=== PATIENT | male | born 1965 | race African-American/Black ===

== ENCOUNTER 2018-10-07 09:26 | Inpatient (IN) ==
[2018-10-07] MEDS ORDERED: *HR* FentaNYL (PF) 100 MCG/2 ML VIAL ONE (10:07)
[2018-10-07] MEDS ORDERED: *HR* Midazolam HCl 2 MG/2 ML VIAL ONE (10:07)
[2018-10-07] MEDS ORDERED: 0.9 % Sodium Chloride 1,000 ML ONE (10:07)
[2018-10-07] MEDS ORDERED: *HR* Heparin 10,000 UNIT/10 ML VIAL ONE (10:08)
[2018-10-07] MEDS ORDERED: Heparin 1,000 UNITS/500 mL 500 ML ONE ×2 (10:08→10:25)
[2018-10-07] MEDS ORDERED: Nitroglycerin 1,000 MCG/10 ML VIAL IV ONE (10:08)
[2018-10-07] MEDS ORDERED: Iopamidol 125 ML INFUS..BTL ONE (10:08)
--- NOTE | 2018-10-07 10:45 | Cardiology Consult Note ---
<Dominique Joe Keyla - Last Filed: 10/07/18 13:45> Date of Encounter: 10/07/18 Time of Encounter: 10:30 Assessment and Plan (1) Cardiac arrest Current Visit: Yes Status: Acute Suspected v-fib arrest; s/p mutiple (5+) rounds of CPR. Anterior STEMI on ECG once ROSC achieved. Patient arrived intubated with suspected posturing upon arrival to labeling associate. Heparin and amiodarone gtt infusing. Plan for LH. Admitted to ICU/Pulmonology, will continue to follow closely. ICU monitoring s/p LHC. Recommend obtaining Head CT, thyroid panel. Discussion w patient/family: The assessment and plan as outlined above was discussed with the patient and/or family members who expressed understanding and agreement. All questions were answered. Thank you for involving us in the care of your patient. Please call with any questions. THe patient was discussed and reviewed with Dr. Bellamy and Dr. Man History of Present Illness Consult date: 10/07/18 Requesting physician: Aravind Bro Consult reason: Cardiac arrest Chief complaint: Cardiac arrest History of present illness: Mr. Acevedo is a 53 year old male with PMHx of HTN and recovering drug and alcohol addiction (sobriety 2015) who presented to [place] ED as cardiac arrest. Please note HPI obtained from records, EMS report, and ED notes. Patient presented to the central supply tech office at 08:36 AM clutching his chest describing chest pain. EMS called and as patient was walking to ambulance he reportedly collapsed; initial cardiac rhythm was ventricular fibrillation and underwent reported multiple rounds of CPR (at least 5), x6 defibrillations and multiple doses of epi, amio, and bicarb. ROSC achieved at [facility] and felt to be anterior STEMI, patient was then transferred to [facility]. Upon exam in the labeling associate, he is intubated with suspected posturing. No purposeful movements noted on my exam. HR 120, appears to be atrial flutter. Heparin and amio gtt are infusing. Past Med Surg Social Fam HX - Past Medical History Source: old records reviewed Medical history: arthritis (Rheumatoid arthritis), asthma, glaucoma, hyperlipi demia, hypertension, IV drug use, other (Cervical stenosis) Additional medical history: tendonitis Psychiatric history: anxiety - Past Surgical History Surgical History: orthopedic, other (2 right hand surgeries, cervical fusion) Additional surgical history: anterior cervical decompression/fusion 03/29/15. r hand suman insertion x2 - Social History Smoking Status: Current every day smoker Smokeless Tobacco Status: No Alcohol use: none Drug use: none, other (Old history references recovery from drug and alcohol addiction since August 2014) - Family History Mother Adopted: No Family Member Ethnicity: Non- Living Status: Hx Family Cardiac Disorders: No Hx Family Respiratory Disorders: No Hx Family Cancer: No Hx Family GI Disorders: No Hx Family Endocrine Disorder: No Hx Family Neuromuscular Disorders: No Hx Family Neurologic Disorders: No Hx Family HEENT Disorders: No Hx Family Autoimmune Disorders: No Medications and Allergies No Known Home Drugs 10/07/18 [History] Allergy/AdvReac Type Severity Reaction Status Date / Time No Known Allergies Allergy Verified 12/23/17 08:30 ROS unobtainable: due to endotracheal tube, due to mental status All Systems Review: The remainder of the systems were reviewed and are negative - Cardiovascular Cardiovascular: as per HPI Physical Examination General: Other (intubated; appears critically ill) Cardiac: Other (tachycardiac) Lungs: Other (coarse breath sounds) Neuro: Other (intubated, suspected posturing noted) Extremities: No Edema, Normal Pulses Results 10/07/18 13:28 - EKG Interpretation EKG results cardiology: personally reviewed (with Dr. Man) Consult Discharge Plan - Plan Referrals: NONE,PCP [Primary Care Provider] - <Abraham Man A - Last Filed: 10/07/18 15:28> Date of Encounter: 10/07/18 - Attending Attestation I have personally performed a face to face evaluation on this patient. I have reviewed and agree with the documented findings and care plan as documented by the [facility]. History and Exam by me shows: Pt admitted s/p prolonged cardiac arrest, found to have LAD thrombus s/p PCI. Continue aspirin and Brillinta, and statin via NGT Remains intubated on mechanical ventilation Obtain echo No definite purposeful movt post ROSC; recommend therapeutic hypothermia if no contraindications Thanks for the consult, please call with questions. Abraham Man MD FACC Assessment and Plan Discussion w patient/family: The assessment and plan as outlined above was discussed with the patient and/or family members who expressed understanding and agreement. All questions were answered. Thank you for involving us in the care of your patient. Please call with any questions. History of Present Illness History of present illness: Mr. Acevedo is a 53 year old male All Systems Review: The remainder of the systems were reviewed and are negative Physical Examination Vital Signs, Last 4 Hours Temp Pulse Resp BP Pulse Ox 10/07/18 13:07 98.8 F 132 38 95/80 93 10/07/18 12:53 126 28 118/98 95 10/07/18 12:24 131 28 101/45 89 10/07/18 12:03 98.8 F 139 39 101/45 93 Results 10/07/18 13:28 10/07/18 13:28 Lab Results 10/07/18 10/07/18 13:28 13:28 WBC 16.3 H D Hgb 13.7 Hct 43.7 Plt Count 237 Sodium 139 Potassium 3.7 Chloride 104 Carbon Dioxide 12 L BUN 9 Creatinine 1.27 Glucose 219 H Calcium 8.1 L Total Bilirubin 2.1 H AST 229 H ALT 64 H Alkaline Phosphatase 100
[2018-10-07] MEDS ORDERED: Tirofiban 12.5 MG/250ML 12.5 MG/250 ML BAG IVC SCH (11:30)
--- NOTE | 2018-10-07 12:01 | Invasive Diagnostic Lab Proc ---
Name: Vikas Acevedo Date of Study: 10/07/2018 Date: 1965 Ht: 67.0in Medical Record#: [id number] Age: 53 Wt: 141.00lb Gender: Male BSA: 1.74 Order #: [id number] BMI: 22.08 Physicians Procedure Physician: Pool Bellamy MD Referring MD: Referring MD: Staff Name Position Time In Jose Martin Gregory RN Monitor 10:38 AM Zach Cordova RN Manager Front Office 10:39 AM Grace Vance RT (R) Scrub 10:39 AM Darcy Hlem RN Monitor 10:45 AM Zach Cordova RN Manager Front Office 10:46 AM Grace Vance RT (R) Scrub 10:47 AM Jose Martin Gregory RN Manager Front Office 10:59 AM Indications Indication Resuscitated Cardiac Arrest Procedures Performed Procedure L HRT ARTERY/VENTRICLE ANGIO Pre-Procedure Checklist Informed consent is complete signed and on chart. H&P is on chart. ID band is on and ID verified with patient. Patient NPO for procedure The procedure was described for the patient and questions were answered. Blood Pressure: 123/96 ECG is on chart. Rhythm: Sinus Tachycardia Plan of Care Patient will tolerate the procedure without complications. Adequate level of comfort will be maintained. Hemodynamics will remain stable Patient will recover from procedure without complications. Respiratory function will be maintained. Cardiac rhythm will remain stable. Patient temperature will be maintained. Patient and/or family have verbalized understanding of the procedure. Patient Education Intravenous Access Time IV Size Location DC'd Fluid/Drip Rate Units RN 10:44 AM 20g 1 1/4" Patent On Arrival Rt Antecubital 0.9NaCl 25 ml/hr Zach Cordova RN 10:44 AM 20g 1 1/4" Patent On Arrival Lt Antecubital Amiodarone ml/hr Zach Cordova RN Allergies No Known Allergies Vital Signs Time BP (mmHg) HR (bpm) O2 Sat. RR (bpm) LOC 10:50 AM / % 0 = No reflexes elicited 10:50 AM / % 4 = Oriented but drowsy 10:41 AM 123 / 96 124 98 % 14 10:44 AM 124 / 89 125 96 % 15 10:50 AM 143 / 105 129 100 % 22 10:54 AM 124 / 102 126 100 % 19 10:59 AM 125 / 94 124 100 % 22 11:04 AM 104 / 86 117 99 % 18 11:06 AM / % 0 = No reflexes elicited Procedural Medications Time Medication Dose Units Method Given By 10:43 AM Amiodarone 33.3 ml/hr Intravenous 10:45 AM Oxygen L/min mechanical ventilator PERI Mtz 10:51 AM Lidocaine 2% 9 ml Subcutaneous Pool Bellamy MD 10:58 AM Aggrastat Bolus: 33 ml Intravenous Zach Cordova RN 10:59 AM Aggrastat 12.5mg/250ml 12 ml/hr Intravenous Zach Cordova RN 10:59 AM Heparin 1000 units Intravenous Jose Martin Gregory RN ASA Classification: CLASS IV- Severe systemic that is constant threat to patient's life Emergent Procedure: ASA score is assumed Sherine Score Preprocedure Postprocedure Activity 0- Unable to move extremities or lift head Activity 0- Unable to move extremities or lift head Circulation 2- SBP +/= 20 points of pre-anesthetic level Circulation 2- SBP +/= 20 points of pre-anesthetic level Consciousness 0- Non-responsive Consciousness 0- Non-responsive O2 Saturation 0- O2 saturation 90% even with O2 supplement O2 Saturation 0- O2 saturation 90% even with O2 supplement Respiratory 0- Apneic requires ventilator or assisted respiration Respiratory 0- Apneic requires ventilator or assisted respiration Total Score 2 Total Score 2 Contrast Agent: Isovue Diagnostic Contrast: 102 ml Total Contrast: 102 ml Fluoro Dose: 41 mGy Activated Clotting Time Time Seconds to Clot 11:00 AM 206 Procedure Log Time Note Enter By 10:35 AM Pt arrived to quality assurance/r&d lab technician 2 at 10:35 oparker 10:[address] upon arrival Mechanical ventilator oparker 10:36 AM rts called oparker 10:39 AM Jose Martin Gregory RN Position: Monitor Time in: 10:38 oparker 10:39 AM Zach Cordova RN Position: Manager Front Office Time in: 10:39 oparker 10:39 AM CathStat 10:39 AM Grace Vance RT (R) Position: Scrub Time in: 10:39 oparker 10:39 AM Patient charges- Angio tray pack, Navilyst 3mm J, Pulse Oximetry and ACIST tubing and transducer oparker 10:40 AM NIBP STAT measurement started. 10:40 AM Case Delayed No oparker 10:40 AM Physican notified that patient arrived. 10:40. oparker 10:41 AM rts arrived with vent oparker 10:41 AM pt arrived on hypothermic protocol, icepacks in place oparker 10:41 AM pt is unresponsive, posturing noted oparker 10:41 AM WP=607 bpm, XAXR=418/96 mmhg, SpO2=98.0 %, Resp=14 B/min 10:42 AM pt arrived intubated, frothy sputum noted oparker 10:[address] cooper and stefanie osei at bedside oparker 10:43 AM heparin gtt turned off. oparker 10:43 AM Patient arrived at 10:43 with Amiodarone Intravenous drip @ 33.3 ml/hr oparker 10:44 AM 0.9ns on arrival oparker 10:44 AM HK=709 bpm, CIJI=318/89 mmhg, SpO2=96.0 %, Resp=15 B/min 10:45 AM Darcy Hlem RN Position: Monitor Time in: 10:45 oparker 10:46 AM Time: 10:45 Oxygen on at L/min per mechanical ventilator by PERI Landis scoates 10:46 AM Patient charges- Angio tray pack, Navilyst 3mm J, Pulse Oximetry and ACIST tubing and transducer scoates 10:46 AM Case Delayed no scoates 10:47 AM Zach Cordova RN Position: Manager Front Office Time in: 10:46 scoates 10:47 AM Grace Vance RT (R) Position: Scrub Time in: 10:47 scoates 10:47 AM Hair removed from procedure site in procedure lab using clippers. Right wrist and Right groin prepped with Chloraprep by Zach Cordova RN, then patient was draped. Skin intact. scoates 10:49 AM Physician arrived 10:49 scoates 10:49 AM Meet and greet completed scoates 10:49 AM Sign in performed according to hospital policy. Informed consent was obtained. scoates 10:49 AM Procedure start 10:49 scoates 10:50 AM KT=622 bpm, EKSN=133/105 mmhg, PjN1=569.0 %, Resp=22 B/min 10:50 AM Time: 10:50 Patient comfortable and pain free: No scoates 10:50 AM Time out was performed according to hospital policy. Conscious sedation and anesthesia was achieved (see medication log with in this report above) scoates 10:50 AM Time: 10:50LOC: 0 = No reflexes elicited scoates 10:51 AM Critical cardiac patient with acute IN was brought emergently to the cardiac catheterization laboratory technician for immediate coronary angiography and intervention if clinically indicated. scoates 10:51 AM Clinical Presentation: STEMI or equivalent scoates 10:51 AM Time: 10:51 9 ml Lidocaine 2% to right groin Subcutaneous Given by Pool Bellamy MD scoates 10:52 AM Micro-Introducer Kit utilized for sheath placement scoates 10:52 AM Access obtained by percutaneous puncture. 6Fr 10cm Terumo [place] sheath placed in right Femoral artery. [id number] scoates 10:52 AM 5Fr FR 4 catheter inserted over the wire DNC scoates 10:54 AM AA=743 bpm, AECY=307/102 mmhg, VdE5=841.0 %, Resp=19 B/min 10:54 AM RCA angiography performed in multiple views. scoates 10:54 AM Coronary Dominance: right scoates 10:55 AM Catheter removed scoates 10:55 AM ASA Class CLASS IV- Severe systemic that is constant threat to patient's life scoates 10:57 AM 6Fr XB LAD 3.5 [place] Bright-Tip guide catheter was used to cannulate the PCI vessel successfully. reused? No scoates 10:57 AM LCA angiography performed in multiple views. scoates 10:58 AM Recorded Pressure: Ao, DN=173, Condition=Condition 1 (Aorta) Ao 118/96/107 10:59 AM Time: 10:58 Aggrastat Bolus: 33 ml Intravenous Given by Zach Cordova RN Mccullough pump scoates 10:59 AM UP=966 bpm, YWCI=986/94 mmhg, ZfY6=445.0 %, Resp=22 B/min, Comment=st 10:59 AM Time: 10:59 Aggrastat 12.5mg/250ml 12 ml/hr Intravenous Given by Zach Cordova RN Mccullough pump scoates 10:59 AM Time: 10:59 Heparin 1000 units Intravenous Given by Jose Martin Gregory RN scoates 10:59 AM Jose Martin Gregory RN Position: Manager Front Office Time in: 10:59 scoates 11:00 AM At 11:00 the ACT was 206 seconds. scoates 11:01 AM .014 [employer] [place] 190cm guide wire across target lesion- successful. reused? No scoates 11:04 AM SD=734 bpm, OFCN=618/86 mmhg, SpO2=99.0 %, Resp=18 B/min 11:04 AM 3.5mm x 20mm Cordis EluNIR drug-eluting stent across target lesion- successful Lot #[id number] scoates 11:05 AM Time: 10:50 Patient comfortable and pain free: Yes scoates 11:05 AM Stent deployed @ 9 sneha for 10 seconds scoates 11:06 AM Time: 10:50LOC: 4 = Oriented but drowsy scoates 11:06 AM Stent balloon reinflated @ 16 sneha for 10 seconds scoates 11:06 AM Stent balloon reinflated @ 18 sneha for 8 seconds scoates 11:07 AM Stent delivery system removed intact. scoates 11:08 AM Vitals capture stopped. 11:08 AM Vitals capture started with the following parameters, Patient=Adult, Interval=5 min, Initial Gnmtibgg=782 mmHg, Deflation Rate=3 mmHg, Cuff placed on Right Arm 11:09 AM Lesion found in Mid LAD. Pre Stenosis: 65 Pre MERLYN Flow: 0: No Flow/No perfusion scoates 11:09 AM Guide catheter removed intact. scoates 11:09 AM Guide wire removed intact. scoates 11:10 AM 5Fr Pigtail catheter inserted over the wire [facility] scoates 11:10 AM Catheter crossed the aortic valve and was selectively placed in the left ventricle. Pressures recorded on pullback for left heart catheterization. scoates 11:10 AM Recorded Pressure: LV, MN=904, Condition=Condition 1 (Left Ventricle) LV 108/49/53 11:10 AM Recorded Pressure: LV, Ao, KE=277, Condition=Condition 1 (Left Ventricle) LV 109/43/59, (Aorta) Ao 127/94/112 11:11 AM Vitals capture stopped. 11:12 AM PCI Status Salvage scoates 11:12 AM Procedure completed at 11:12 10/07/2018 scoates 11:13 AM Did you address MERLYN flow and Dominance? YesCoronary Dominance: right scoates 11:15 AM Sign out completed: Radiation Dose 320 mGy, 41 Gy/cm2 Fluoro Time: 6.2 Isovue 370 - 200ml contrast 102 ml given by Pool Bellamy MD. Complications: None. The patient was discharged out of the catheterization laboratory technician in stable condition. Sedation minutes 0. Cardiac Rehab Consult needed: Yes. Confirmed administered medications: Yes scoates 11:16 AM Isovue 370 - 200ml,1 Bottle(s) used. scoates 11:17 AM Arterial sheath pulled, Angio-seal closure device used and was Successful [id number] S/N. scoates 11:19 AM Estimated Blood Loss: less than 20cc scoates 11:20 AM Post ECG Sinus Tachycardia scoates 11:20 AM Post Blood Pressure 104/86 scoates 11:21 AM Time: 11:06LOC: 0 = No reflexes elicited scoates 11:21 AM Time: 11:05 Patient comfortable and pain free: Yes scoates 11:22 AM Information taught Cardiac Cath, PCI, and Angioseal scoates 11:22 AM Learning barriers :Cognitive scoates 11:22 AM Education Methods Verbal scoates 11:22 AM Education evaluation Not ready to learn scoates 11:23 AM manual pressure applied for 10 minutes scoates 11:24 AM Site status No bleeding/ No Hematoma - Rt Groin as reported by Grace Vance RT (R) at 11:24 scoates 11:24 AM Plavix, Effient or Brilinta given given in ER scoates 11:25 AM Family placed in no family present at this time. scoates 11:38 AM Report given to Martha GRANGER Pt taken to ICU Room #3. 11:37 scoates 11:38 AM Patient out of room: 11:38 scoates Complications Complication None Hemodynamics Pressures Site Systolic/A Wave Diastolic/V Wave Mean AO 118 96 107 LV 108 49 53 LV 109 43 59 AO 127 94 112 Post Procedure Information Blood Pressure: 104/86 mmHg Rhythm: Sinus Tachycardia Post procedural instructions were given Closure Device Time Device Success/Fail 10/07/2018 11:20:00 AM Angio-Seal VIP Successful Site Checks Time Location Status Staff Sheath In? Note 11:24 AM Rt Groin No bleeding/ No Hematoma Grace Vance RT (R) Pulses Time Site Pre-Procedure Post-Procedure Note 10/07/2018 11:35:00 AM Bilateral radial 1+ 10/07/2018 11:35:00 AM Bilateral DP & PT 1+ 10/07/2018 10:35:00 AM Bilateral DP & PT 1+ 10/07/2018 10:35:00 AM Bilateral radial 1+ Updated by Jose Martin Gregory RN on 10/07/2018 11:49:51 AM electronically signed on 10/07/2018 11:54:57 AM with status of Final
[2018-10-07] MEDS ORDERED: Perflutren Lipid Microsphere 1.3 ML in 0.9 % Sodium Chloride 8.7 ML IVP ONE ×2 (12:56→15:45)
[2018-10-07] MEDS ORDERED: Artificial Tears SOLN 15 ML BOTTLE BOTH EYES PRN ×2 (13:17→23:01)
[2018-10-07] MEDS ORDERED: Naloxone 0.4 MG/ML INJ IVP PRN (13:24)
[2018-10-07 13:44] LABS: Basophils # 0.1 K/mcL (0.0-0.2); Basophils % 0.3 %; Eosinophils % 0.1 %; Hematocrit 43.7 % (37.5-50.1); Hemoglobin 13.7 g/dL (12.9-16.9); Immature Granulocytes % 0.6 % (0-4); Lymphocytes # 1.2 K/mcL (0.6-4.6); Lymphocytes % 7.3 %; Mean Corpuscular HGB Conc 31.4 g/dL (31.6-35.5); Mean Corpuscular Hemoglobin 30.9 pg (28.0-33.3); Mean Corpuscular Volume 98.4 fL (83.0-100.0); Mean Platelet Volume 10.1 fL (9.4-12.4); Monocytes # 1.3 K/mcL (0.0-1.3); Monocytes % 7.9 %; Neutrophils # 13.7 K/mcL (1.6-8.9); Platelet Count 237 K/mcL (140-400); Red Blood Count 4.44 M/mcL (4.19-5.50); Red Cell Distribution Width 14.7 % (11.5-14.5); Segmented Neutrophils % 83.8 %; White Blood Count 16.3 K/mcL (4.3-11.1)
[2018-10-07 14:15] LABS: Alanine Aminotransferase 64 Units/L (7-52); Albumin 3.5 g/dL (3.5-5.7); Albumin/Globulin Ratio 1.5 (1.1-2.2); Alkaline Phosphatase 100 Units/L (34-104); Aspartate Amino Transferase 229 Units/L (13-39); BUN/Creatinine Ratio 7 (6-26); Bilirubin,Total 2.1 mg/dL (0.3-1.0); Blood Urea Nitrogen 9 mg/dL (6-20); Calcium 8.1 mg/dL (8.6-10.3); Carbon Dioxide 12 mEq/L (23-29); Chloride 104 mEq/L (98-107); Globulin 2.4 g/dL (2.4-3.5); Glucose 219 mg/dL (70-105); Osmolality,Calculated 293 (280-300); Potassium 3.7 mEq/L (3.5-5.1); Sodium 139 mEq/L (136-145); Total Protein 5.9 g/dL (6.4-8.9); eGFR For African Americans > 60 (> 60); eGFR For Non-African Americans 59 (> 60)
[2018-10-07] MEDS ORDERED: Amiodarone Premix 360 MG/200 ML BAG IVC ONE ×2 (14:34→23:23)
[2018-10-07] MEDS: Piperacillin/Tazobactam 3.375 GM in 0.9 % Sodium Chloride Mini Bag 100 ML IVPB SCH ×2 (15:23→21:49)
[2018-10-07] MEDS: Artificial Tears SOLN 15 ML BOTTLE BOTH EYES SCH ×2 (15:23→20:39)
[2018-10-07] MEDS: Pantoprazole 40 MG VIAL IVP SCH (16:10)
[2018-10-07] MEDS: Ipratropium/Albuterol Neb 3 ML IH SCH ×2 (16:27→21:20)
--- NOTE | 2018-10-07 16:49 | Pulmonology History & Physical ---
Date of Encounter: 10/07/18 Time of Encounter: 10:55 Assessment and Plan (1) Cardiac arrest Current visit: Yes Status: Acute Patient is witnessed cardiac arrest and after he returned from cardiac cath stat head CT was done and I have reviewed it with radiologist and no evidence of any bleed. Hypothermia protocol started after checking for any contraindications. Overall prognosis is poor. Patient has no family around and will need social work assistant consult. Might need EEG and neurology consult, all depend after he completed his hypothermia time. I have discussed with pediatric dental hygienist and appreciate his help. Follow up on echo and further work up and management for STEMI management will be deferred to cardiolgist. He has evidence of metabolic acidosis after cardiac arrest and may need bicarb, however that can affect his potassium level and will monitor closely. Poor prognosis . I suspect his lactic acidosis from hypoperfusion rate related concern about neurological outcome for this patient. I spent 65 min of Critical Care time with this patient. It involved decision making of high complexity to assess, manipulate, and support vital organ system failure and/or to prevent further life threatening deterioration of the patient's condition. The time involved in the performance of separately reportable procedures was not counted toward critical care time. (2) Acute respiratory failure with hypoxia Current visit: Yes Status: Acute Reviewed his vent setting and his ABG, which is acceptable and after sedation, may need to change some vent setting. Patient has tachypnea mainly from his underlying metabolic acidosis and once he is sedated and then follow-up ABG to make sure he is not deteriorating. History of Present Illness Chief complaint: Cardiac arrest HPI: Mr. Acevedo is a 53 year old male with multiple medical problems and this history is taken from the chart and physician from [place] ED. Patient is not able to give history after cardiac arrest and family is not available and not able to reach anyone. Patient present to [facility] ED as cardiac arrest. Patient first presented to the Psychiatric office with chest pain and EMS called and he collapsed after that and was found to be in Ventricular fibrillation and he underwent multiple rounds of CPR for multiple defibrillation and Magnesium, Amiodarone and finally he had ROSC at [place] and he was transferred to dairy lab technician and then to ICU. CT head was done and then started hypothermia protocol. Past Med Surg Social Fam HX - Past Medical History Medical history: arthritis (Rheumatoid arthritis), asthma, glaucoma, hyperlipidemia, hypertension, IV drug use, other (Cervical stenosis) Additional medical history: tendonitis Psychiatric history: anxiety - Past Surgical History Surgical History: orthopedic, other (2 right hand surgeries, cervical fusion) Additional surgical history: anterior cervical decompression/fusion 03/29/15. r hand suman insertion x2 - Social History Smoking Status: Current every day smoker Smokeless Tobacco Status: No Alcohol use: none Drug use: none, other (Old history references recovery from drug and alcohol addiction since August 2014) - Family History Mother Adopted: No Family Member Ethnicity: Non- Living Status: Hx Family Cardiac Disorders: No Hx Family Respiratory Disorders: No Hx Family Cancer: No Hx Family GI Disorders: No Hx Family Endocrine Disorder: No Hx Family Neuromuscular Disorders: No Hx Family Neurologic Disorders: No Hx Family HEENT Disorders: No Hx Family Autoimmune Disorders: No Medications and Allergies No Known Home Drugs 10/07/18 [History] Allergy/AdvReac Type Severity Reaction Status Date / Time No Known Allergies Allergy Verified 12/23/17 08:30 ROS unobtainable: due to mental status All Systems: The remainder of the systems were reviewed and are negative Physical Examination Vital Signs: Vital Signs, Last 4 Hours Temp Pulse Resp BP Pulse Ox 10/07/18 13:07 98.8 F 132 38 95/80 93 10/07/18 12:53 126 28 118/98 95 General appearance: agitated Eyes: nonicteric ENT: oropharynx dry Neck: supple, no lymphadenopathy Effort: mildly labored Inspection: hyperextended Auscultation: bilateral: diminished breath sounds, rales Percussion: bilateral: not dull Cardiovascular: regular rate and rhythm Gastrointestinal: normoactive bowel sounds, hypoactive bowel sounds Integumentary: other (Dry and poor hygiene) Extremities: no cyanosis, no edema, no clubbing unable to assess due to mental status, other (Patient has some posturing and not following any commands) Results - Laboratory Findings CBC and BMP: 10/08/18 07:02 10/08/18 07:02 Abnormal lab findings: Abnormal lab results WBC 16.3 K/mcL (4.3-11.1) H D 10/07/18 13:28 MCHC 31.4 g/dL (31.6-35.5) L 10/07/18 13:28 RDW 14.7 % (11.5-14.5) H 10/07/18 13:28 Neutrophils # 13.7 K/mcL (1.6-8.9) H 10/07/18 13:28 Carbon Dioxide 12 mEq/L (23-29) L 10/07/18 13:28 Est GFR (Non-Af Amer) 59 (> 60) L 10/07/18 13:28 Glucose 219 mg/dL (70-105) H 10/07/18 13:28 Calcium 8.1 mg/dL (8.6-10.3) L 10/07/18 13:28 Total Bilirubin 2.1 mg/dL (0.3-1.0) H 10/07/18 13:28 AST 229 Units/L (13-39) H 10/07/18 13:28 ALT 64 Units/L (7-52) H 10/07/18 13:28 Serum Total Protein 5.9 g/dL (6.4-8.9) L 10/07/18 13:28 - Diagnostic Findings Chest x-ray: report reviewed, image reviewed
[2018-10-07 17:15] LABS: Amphetamine Screen,Urine Negative ng/mL (Cutoff=1000); Barbiturate Screen,Urine Negative ng/mL (Cutoff=200); Benzodiazepines Screen,Urine Negative ng/mL (Cutoff=200); Cannabinoid Screen,Urine Negative ng/mL (Cutoff = 50); Cocaine Screen,Urine Negative ng/mL (Cutoff= 300); Opiate Screen,Urine Negative ng/mL (Cutoff=300); Phencyclidine Screen,Urine Negative ng/mL (Cutoff=25)
--- NOTE | 2018-10-07 17:51 | Electrocardiograph Report ---
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
[2018-10-07 19:02] LABS: Basophils % 0.2 %; Hematocrit 43.7 % (37.5-50.1); Hemoglobin 14.3 g/dL (12.9-16.9); Immature Granulocytes % 0.7 % (0-4); Lymphocytes # 0.7 K/mcL (0.6-4.6); Lymphocytes % 3.9 %; Mean Corpuscular HGB Conc 32.7 g/dL (31.6-35.5); Mean Corpuscular Hemoglobin 31.4 pg (28.0-33.3); Mean Corpuscular Volume 95.8 fL (83.0-100.0); Mean Platelet Volume 10.2 fL (9.4-12.4); Monocytes # 1.4 K/mcL (0.0-1.3); Monocytes % 7.9 %; Neutrophils # 15.2 K/mcL (1.6-8.9); Platelet Count 215 K/mcL (140-400); Red Blood Count 4.56 M/mcL (4.19-5.50); Red Cell Distribution Width 14.6 % (11.5-14.5); Segmented Neutrophils % 87.3 %; White Blood Count 17.4 K/mcL (4.3-11.1)
[2018-10-07 19:13] LABS: INR 1.2; Prothrombin Time 13.4 Seconds (9.4-12.1)
[2018-10-07 19:15] LABS: Activated Partial Thrombo Time 30.4 Seconds (26.0-36.0); BUN/Creatinine Ratio 9 (6-26); Blood Urea Nitrogen 10 mg/dL (6-20); Calcium 8.4 mg/dL (8.6-10.3); Carbon Dioxide 17 mEq/L (23-29); Chloride 106 mEq/L (98-107); Glucose 176 mg/dL (70-105); Magnesium 2.4 mg/dL (1.6-2.6); Osmolality,Calculated 295 (280-300); Phosphorous 4.1 mg/dL (2.7-4.5); Potassium 3.7 mEq/L (3.5-5.1); Sodium 141 mEq/L (136-145); eGFR For African Americans > 60 (> 60); eGFR For Non-African Americans > 60 (> 60)
[2018-10-07] MEDS: Dexmedetomidine HCl 400 MCG/100 ML MLS IVC SCH (20:04)
[2018-10-07 20:12] LABS: ABG Base Excess -10 mEq/L (-2 to 3); ABG HCO3 16 mEq/L (21-27); ABG Oxygen Saturation 100 % (95-98); ABG PCO2 34 mmHg (35-45); ABG PH 7.28 pH Units (7.32-7.45); ABG PO2 192 mmHg (85-104); ABG TCO2 17 mEq/L (20-26); Blood Gas Modality ASSIST CONTROL
[2018-10-07] MEDS: Cisatracurium 200 MG in 0.9 % Sodium Chloride 180 ML IVC SCH (20:33)
[2018-10-07] MEDS: *HR* Ticagrelor 90 MG TABLET PO SCH (20:45)
[2018-10-07] MEDS ORDERED: Chlorhexidine Rinse 15 ML MOUTHWASH MM SCH (21:00)
[2018-10-07] MEDS: Budesonide/Formoterol 160/4.5 1 PUFF INH IH SCH (21:20)
[2018-10-07 22:26] LABS: Basophils % 0.1 %; Hematocrit 41.1 % (37.5-50.1); Hemoglobin 13.7 g/dL (12.9-16.9); Immature Granulocytes % 0.6 % (0-4); Lymphocytes # 0.6 K/mcL (0.6-4.6); Lymphocytes % 3.7 %; Mean Corpuscular HGB Conc 33.3 g/dL (31.6-35.5); Mean Corpuscular Hemoglobin 31.1 pg (28.0-33.3); Mean Corpuscular Volume 93.2 fL (83.0-100.0); Mean Platelet Volume 10.3 fL (9.4-12.4); Monocytes # 1.1 K/mcL (0.0-1.3); Neutrophils # 13.3 K/mcL (1.6-8.9); Platelet Count 203 K/mcL (140-400); Red Blood Count 4.41 M/mcL (4.19-5.50); Red Cell Distribution Width 14.4 % (11.5-14.5); Segmented Neutrophils % 88.6 %
[2018-10-07 22:34] LABS: INR 1.2; Prothrombin Time 13.9 Seconds (9.4-12.1)
[2018-10-07 22:36] LABS: Activated Partial Thrombo Time 32.1 Seconds (26.0-36.0)
[2018-10-07 22:43] LABS: BUN/Creatinine Ratio 11 (6-26); Blood Urea Nitrogen 12 mg/dL (6-20); Carbon Dioxide 15 mEq/L (23-29); Chloride 106 mEq/L (98-107); Glucose 246 mg/dL (70-105); Potassium 3.4 mEq/L (3.5-5.1); Sodium 138 mEq/L (136-145); eGFR For African Americans > 60 (> 60); eGFR For Non-African Americans > 60 (> 60)
[2018-10-07 22:44] LABS: Calcium 8.2 mg/dL (8.6-10.3); Magnesium 2.3 mg/dL (1.6-2.6); Osmolality,Calculated 294 (280-300); Phosphorous 4.9 mg/dL (2.7-4.5)
[2018-10-07] MEDS ORDERED: Potassium Chloride Elixir 20 MEQ/15 ML UDC PO ONE (23:44)
[2018-10-08] MEDS: Artificial Tears SOLN 15 ML BOTTLE BOTH EYES SCH ×8 (00:14→23:00)
[2018-10-08 00:38] LABS: Thyroid Stimulating Hormone 1.881 mcIU/mL (0.340-5.600)
[2018-10-08] MEDS: Ipratropium/Albuterol Neb 3 ML IH SCH ×4 (03:26→21:47)
--- NOTE | 2018-10-08 05:12 | Event Note ---
Date of Encounter: 10/08/18 Time of Encounter: 05:08 Called by RN and resident to place CVC for hypotension and possible need for pressors. Dr. Norris attempted to place left femoral CVC using ultrasound guidance, but she failed to aspirate the femoral vein. I then attempted and successfully aspirated and cannulated the left femoral vein twice, but I was unable to advance the guidewire on the first attempt and then unable to advance the CVC over the guidewire on the second attempt. I therefore aborted the procedure. MAP is currently in the 80-90's. We will continue to monitor and ask PICC team or primary team to provide better IV/central venous access this morning. Patient tolerated CVC attempt with no immediate complication and less than 10 ml blood loss.
[2018-10-08] MEDS: Piperacillin/Tazobactam 3.375 GM in 0.9 % Sodium Chloride Mini Bag 100 ML IVPB SCH ×3 (05:23→21:14)
[2018-10-08 05:30] LABS: ABG Base Excess -8 mEq/L (-2 to 3); ABG HCO3 17 mEq/L (21-27); ABG Oxygen Saturation 99 % (95-98); ABG PCO2 31 mmHg (35-45); ABG PH 7.34 pH Units (7.32-7.45); ABG PO2 157 mmHg (85-104); ABG TCO2 18 mEq/L (20-26); Blood Gas Modality ASSIST CONTROL; Blood Gas PEEP 5 cm H2O; Blood Gas VT 550 cc
[2018-10-08 07:21] LABS: Basophils % 0.1 %; Hematocrit 40.6 % (37.5-50.1); Hemoglobin 13.1 g/dL (12.9-16.9); Immature Granulocytes % 0.4 % (0-4); Lymphocytes # 0.6 K/mcL (0.6-4.6); Mean Corpuscular HGB Conc 32.3 g/dL (31.6-35.5); Monocytes # 1.3 K/mcL (0.0-1.3); Monocytes % 8.8 %; Neutrophils # 12.6 K/mcL (1.6-8.9); Nucleated Red Blood Cells 0.1 /100 WBC (0); Platelet Count 178 K/mcL (140-400); Red Blood Count 4.23 M/mcL (4.19-5.50); Red Cell Distribution Width 14.7 % (11.5-14.5); Segmented Neutrophils % 86.7 %; White Blood Count 14.6 K/mcL (4.3-11.1)
[2018-10-08 07:28] LABS: INR 1.2; Prothrombin Time 13.7 Seconds (9.4-12.1)
[2018-10-08 07:31] LABS: Activated Partial Thrombo Time 31.4 Seconds (26.0-36.0)
[2018-10-08 07:40] LABS: BUN/Creatinine Ratio 11 (6-26); Blood Urea Nitrogen 14 mg/dL (6-20); Calcium 8.4 mg/dL (8.6-10.3); Carbon Dioxide 19 mEq/L (23-29); Chloride 104 mEq/L (98-107); Glucose 224 mg/dL (70-105); Magnesium 2.5 mg/dL (1.6-2.6); Osmolality,Calculated 301 (280-300); Phosphorous 4.6 mg/dL (2.7-4.5); Potassium 3.6 mEq/L (3.5-5.1); Sodium 142 mEq/L (136-145); eGFR For African Americans > 60 (> 60); eGFR For Non-African Americans 56 (> 60)
--- NOTE | 2018-10-08 08:01 | Pulmonology Progress Note ---
<Rian Johnston L - Last Filed: 10/08/18 11:44> Date of Encounter: 10/08/18 Time of Encounter: 08:01 Assessment and Plan (1) Cardiopulmonary arrest Current Visit: No Status: Acute Cardiopulmonary arrest after returning from [employer] cutting [employer] yesterday - Hypothermia protocol in progress - Poor prognosis - Cardiology following - Cisatracurium for shivering - Episodes of non-sustained VT, beginning around 9am Plan: - Keep under 34 degrees C until 7 pm - Coreg BID - Amiodarone drip - ASA and Brilinta - Continuous monitoring - Full vent support (2) Hypotension Current Visit: Yes Status: Acute Hypotension - Secondary to cardiac arrest - MAP ~60 - L fem triple lumen central line placed Plan: - Levophed started - Titrate to map > 65 or systolic >90 - Continue to monitor - Family discussion on goals of care later today Qualifiers: Hypotension type: other hypotension type Qualified Code(s): I95.89 - Other hypotension (3) STEMI (ST elevation myocardial infarction) Current Visit: Yes Status: Acute STEMI - PCI 10/07/18 following arrest - Care as above Qualifiers: Involved coronary artery: LAD coronary artery Qualified Code(s): I21.02 - ST elevation (STEMI) myocardial infarction involving left anterior descending coronary artery (4) Acute respiratory failure with hypoxia Current Visit: Yes Status: Acute Acute resp failure - Secondary to cardiopulmonry arrest - Cont full vent support Subjective Interval history: Pt seen and examined. Sedated and paralyzed. On hypothermia protocol, rewarming in progress. Paralytic will be turned off this am. Overnight a central line coul d not be placed. BP has been low, difficult to obtain consistent reading. Plan for central line and pressers as needed. Objective PUL Vital signs: Last Vital Signs Temp 92.1 F L 10/08/18 07:00 Pulse 79 10/08/18 07:00 Resp 16 10/08/18 07:52 BP 112/98 10/08/18 07:52 Pulse Ox 99 10/08/18 07:52 Gen.: Elderly male. Intubated and sedated Skin: Cold, Good turgor. Eyes: Pupils 2-3 mm, sluggish reaction to light Neck: No obvious JVD Cardiac: RRR, s1s2 Respiratory: Mechanical BS BL Abdominal: soft, non-distended. No rigidity Extremities: Capillary refill less than 2 seconds upper extremities bilaterally. No bilateral lower extremity edema. Difficult to palpate peripheral pulses. Pulses identified with Doppler. Neuro: Amelia 6. Unresponsive. Gag reflex, corneal reflex intact Ventilator Settings Ventilator Settings: Ventilator Settings, Last 8 Hours Ventilator Tidal Volume 550 Setting Ventilator Tidal Volume 550 Setting Ventilator Tidal Volume 550 Setting Ventilator Tidal Volume 550 Setting Ventilator Tidal Volume 550 Setting Ventilator Tidal Volume 550 Setting Ventilator Tidal Volume 550 Setting Ventilator Tidal Volume 550 Setting Ventilator Tidal Volume 550 Setting Ventilator Tidal Volume 550 Setting Ventilator Tidal Volume 550 Setting Ventilator Tidal Volume 550 Setting Ventilator Tidal Volume 550 Setting Ventilator Tidal Volume 550 Setting Ventilator Tidal Volume 550 Setting Ventilator Tidal Volume 550 Setting Ventilator Tidal Volume 550 Setting Ventilator Tidal Volume 550 Setting Ventilator Tidal Volume 550 Setting Ventilator Tidal Volume 550 Setting Ventilator Tidal Volume 550 Setting Ventilator Tidal Volume 550 Setting Ventilator Tidal Volume 550 Setting Ventilator Tidal Volume 550 Setting Ventilator Tidal Volume 550 Setting Ventilator Respiratory Rate 16 Setting Ventilator Respiratory Rate 16 Setting Ventilator Respiratory Rate 16 Setting Ventilator Respiratory Rate 16 Setting Ventilator Respiratory Rate 16 Setting Ventilator Respiratory Rate 16 Setting Ventilator Respiratory Rate 16 Setting Ventilator Respiratory Rate 16 Setting Ventilator Respiratory Rate 16 Setting Ventilator Respiratory Rate 16 Setting Ventilator Respiratory Rate 16 Setting Ventilator Respiratory Rate 16 Setting Ventilator Respiratory Rate 16 Setting Ventilator Respiratory Rate 16 Setting Ventilator Respiratory Rate 16 Setting Ventilator Respiratory Rate 16 Setting Ventilator Respiratory Rate 16 Setting Ventilator Respiratory Rate 16 Setting Ventilator Respiratory Rate 16 Setting Ventilator Respiratory Rate 16 Setting Ventilator Respiratory Rate 16 Setting Ventilator Respiratory Rate 16 Setting Ventilator Respiratory Rate 16 Setting Ventilator Respiratory Rate 16 Setting Ventilator Respiratory Rate 16 Setting Actual Respiratory Rate 16 Actual Respiratory Rate 16 Actual Respiratory Rate 16 Actual Respiratory Rate 16 Actual Respiratory Rate 16 Actual Respiratory Rate 16 Actual Respiratory Rate 17 Actual Respiratory Rate 16 Actual Respiratory Rate 16 Actual Respiratory Rate 16 Actual Respiratory Rate 16 Actual Respiratory Rate 16 Actual Respiratory Rate 17 Actual Respiratory Rate 16 Actual Respiratory Rate 16 Actual Respiratory Rate 16 Actual Respiratory Rate 16 Actual Respiratory Rate 16 Actual Respiratory Rate 16 Actual Respiratory Rate 16 Actual Respiratory Rate 16 Actual Respiratory Rate 16 Actual Respiratory Rate 16 Actual Respiratory Rate 16 Positive End Expiratory 5 Pressure Positive End Expiratory 5 Pressure Positive End Expiratory 5 Pressure Positive End Expiratory 5 Pressure Positive End Expiratory 5 Pressure Positive End Expiratory 5 Pressure Positive End Expiratory 5 Pressure Positive End Expiratory 5 Pressure Positive End Expiratory 5 Pressure Positive End Expiratory 5 Pressure Positive End Expiratory 5 Pressure Positive End Expiratory 5 Pressure Positive End Expiratory 5 Pressure Positive End Expiratory 5 Pressure Positive End Expiratory 5 Pressure Positive End Expiratory 5 Pressure Positive End Expiratory 5 Pressure Positive End Expiratory 5 Pressure Positive End Expiratory 5 Pressure Positive End Expiratory 5 Pressure Positive End Expiratory 5 Pressure Positive End Expiratory 5 Pressure Positive End Expiratory 5 Pressure Positive End Expiratory 5 Pressure Positive End Expiratory 5 Pressure Peak Inspiratory Airway 21 Pressure Peak Inspiratory Airway 21 Pressure Peak Inspiratory Airway 20 Pressure Peak Inspiratory Airway 20 Pressure Peak Inspiratory Airway 22 Pressure Peak Inspiratory Airway 21 Pressure Peak Inspiratory Airway 21 Pressure Peak Inspiratory Airway 21 Pressure Peak Inspiratory Airway 21 Pressure Peak Inspiratory Airway 21 Pressure Peak Inspiratory Airway 21 Pressure Peak Inspiratory Airway 20 Pressure Peak Inspiratory Airway 22 Pressure Peak Inspiratory Airway 21 Pressure Peak Inspiratory Airway 21 Pressure Peak Inspiratory Airway 21 Pressure Peak Inspiratory Airway 21 Pressure Peak Inspiratory Airway 21 Pressure Peak Inspiratory Airway 21 Pressure Peak Inspiratory Airway 21 Pressure Peak Inspiratory Airway 21 Pressure Peak Inspiratory Airway 21 Pressure Peak Inspiratory Airway 20 Pressure Peak Inspiratory Airway 20 Pressure Results - Laboratory Findings CBC and BMP: 10/08/18 07:02 10/08/18 07:02 ABG ABG pH 7.34 pH Units (7.32-7.45) 10/08/18 05:25 ABG pCO2 31 mmHg (35-45) L 10/08/18 05:25 ABG pO2 157 mmHg (85-104) H 10/08/18 05:25 ABG O2 Saturation 99 % (95-98) H 10/08/18 05:25 PT/INR, D-dimer PT 13.7 Seconds (9.4-12.1) H 10/08/18 07:02 Abnormal lab findings: Abnormal lab results WBC 14.6 K/mcL (4.3-11.1) H 10/08/18 07:02 MCHC 31.4 g/dL (31.6-35.5) L 10/07/18 13:28 RDW 14.7 % (11.5-14.5) H 10/08/18 07:02 Neutrophils # 12.6 K/mcL (1.6-8.9) H 10/08/18 07:02 Monocytes # 1.4 K/mcL (0.0-1.3) H 10/07/18 18:41 Nucleated RBCs/100 WBC 0.1 /100 WBC (0) H 10/08/18 07:02 PT 13.7 Seconds (9.4-12.1) H 10/08/18 07:02 ABG pH 7.28 pH Units (7.32-7.45) L 10/07/18 20:00 ABG pCO2 31 mmHg (35-45) L 10/08/18 05:25 ABG pO2 157 mmHg (85-104) H 10/08/18 05:25 ABG HCO3 17 mEq/L (21-27) L 10/08/18 05:25 ABG Total CO2 18 mEq/L (20-26) L 10/08/18 05:25 ABG O2 Saturation 99 % (95-98) H 10/08/18 05:25 ABG Base Excess -8 mEq/L (-2 to 3) L 10/08/18 05:25 Potassium 3.4 mEq/L (3.5-5.1) L 10/07/18 22:07 Carbon Dioxide 19 mEq/L (23-29) L 10/08/18 07:02 Creatinine 1.33 mg/dL (0.70-1.30) H 10/08/18 07:02 Est GFR (Non-Af Amer) 56 (> 60) L 10/08/18 07:02 Glucose 224 mg/dL (70-105) H 10/08/18 07:02 POC Glucose 269 mg/dL (70-99) H 10/07/18 23:36 Calculated Osmolality 301 (280-300) H 10/08/18 07:02 Lactic Acid 6.4 mmol/L (0.5-2.2) H* 10/08/18 07:02 Calcium 8.4 mg/dL (8.6-10.3) L 10/08/18 07:02 Phosphorus 4.6 mg/dL (2.7-4.5) H 10/08/18 07:02 Total Bilirubin 2.1 mg/dL (0.3-1.0) H 10/07/18 13:28 AST 229 Units/L (13-39) H 10/07/18 13:28 ALT 64 Units/L (7-52) H 10/07/18 13:28 Serum Total Protein 5.9 g/dL (6.4-8.9) L 10/07/18 13:28 - Microbiology Findings Microbiology Findings: Microbiology, Last 48 Hours 10/07/18 13:28 Blood Culture - Preliminary Peripheral Venipuncture Culture is incubating and being continuously monitored for growth. Final report to follow. 10/07/18 13:28 Blood Culture - Preliminary Peripheral Venipuncture Culture is incubating and being continuously monitored for growth. Final report to follow. - Clinical Findings Intake & Output: Intake & Output 10/07/18 10/08/18 10/08/18 23:59 07:59 15:59 Intake Total 150 / 432 907 / 907 Output Total 1600 / 1800 325 / 325 Balance -1450 / -1368 582 / 582 Consult Discharge Plan - Plan Referrals: Bailee Mccain, MARLYN [Advanced Practice Nurse] - 10/22/18 12:45 pm Luis Alberto Lucero CNP [Advanced Practice Nurse] - (Per the Office they will call the patient at home with a follow up appointment) Prescriptions: Rivaroxaban [Xarelto] 20 mg PO DAILY #30 tablet <Scott Bonilla M - Last Filed: 10/11/18 15:46> Date of Encounter: 10/08/18 Assessment and Plan (1) Cardiac arrest Current Visit: Yes Status: Acute (2) Acute respiratory failure with hypoxia Current Visit: Yes Status: Acute Objective PUL Vital signs: Last Vital Signs Temp 92.6 F L 10/08/18 16:00 Pulse 82 10/08/18 16:00 Resp 16 10/08/18 16:00 BP 94/83 10/08/18 16:00 Pulse Ox 99 10/08/18 16:00 Ventilator Settings Ventilator Settings: Ventilator Settings, Last 8 Hours Ventilator Tidal Volume 550 Setting Ventilator Tidal Volume 550 Setting Ventilator Tidal Volume 550 Setting Ventilator Tidal Volume 550 Setting Ventilator Tidal Volume 550 Setting Ventilator Tidal Volume 550 Setting Ventilator Tidal Volume 550 Setting Ventilator Tidal Volume 550 Setting Ventilator Tidal Volume 550 Setting Ventilator Tidal Volume 550 Setting Ventilator Tidal Volume 550 Setting Ventilator Respiratory Rate 16 Setting Ventilator Respiratory Rate 16 Setting Ventilator Respiratory Rate 16 Setting Ventilator Respiratory Rate 16 Setting Ventilator Respiratory Rate 16 Setting Ventilator Respiratory Rate 16 Setting Ventilator Respiratory Rate 16 Setting Ventilator Respiratory Rate 16 Setting Ventilator Respiratory Rate 16 Setting Ventilator Respiratory Rate 16 Setting Ventilator Respiratory Rate 16 Setting Actual Respiratory Rate 16 Actual Respiratory Rate 16 Actual Respiratory Rate 16 Actual Respiratory Rate 16 Actual Respiratory Rate 16 Actual Respiratory Rate 16 Actual Respiratory Rate 16 Actual Respiratory Rate 16 Actual Respiratory Rate 16 Actual Respiratory Rate 19 Actual Respiratory Rate 16 Positive End Expiratory 5 Pressure Positive End Expiratory 5 Pressure Positive End Expiratory 5 Pressure Positive End Expiratory 5 Pressure Positive End Expiratory 5 Pressure Positive End Expiratory 5 Pressure Positive End Expiratory 5 Pressure Positive End Expiratory 5 Pressure Positive End Expiratory 5 Pressure Positive End Expiratory 5 Pressure Positive End Expiratory 5 Pressure Peak Inspiratory Airway 23 Pressure Peak Inspiratory Airway 22 Pressure Peak Inspiratory Airway 21 Pressure Peak Inspiratory Airway 22 Pressure Peak Inspiratory Airway 22 Pressure Peak Inspiratory Airway 22 Pressure Peak Inspiratory Airway 23 Pressure Peak Inspiratory Airway 23 Pressure Peak Inspiratory Airway 20 Pressure Peak Inspiratory Airway 18 Pressure Peak Inspiratory Airway 20 Pressure Results - Laboratory Findings CBC and BMP: 10/11/18 04:40 10/11/18 04:40 ABG ABG pH 7.34 pH Units (7.32-7.45) 10/08/18 05:25 ABG pCO2 31 mmHg (35-45) L 10/08/18 05:25 ABG pO2 157 mmHg (85-104) H 10/08/18 05:25 ABG O2 Saturation 99 % (95-98) H 10/08/18 05:25 PT/INR, D-dimer PT 13.8 Seconds (9.4-12.1) H 10/08/18 12:30 Abnormal lab findings: Abnormal lab results WBC 16.0 K/mcL (4.3-11.1) H 10/08/18 12:30 RBC 4.03 M/mcL (4.19-5.50) L 10/08/18 12:30 Hgb 12.5 g/dL (12.9-16.9) L 10/08/18 12:30 MCHC 31.4 g/dL (31.6-35.5) L 10/07/18 13:28 RDW 14.7 % (11.5-14.5) H 10/08/18 07:02 Neutrophils # 14.0 K/mcL (1.6-8.9) H 10/08/18 12:30 Monocytes # 1.4 K/mcL (0.0-1.3) H 10/07/18 18:41 Nucleated RBCs/100 WBC 0.1 /100 WBC (0) H 10/08/18 12:30 PT 13.8 Seconds (9.4-12.1) H 10/08/18 12:30 ABG pH 7.28 pH Units (7.32-7.45) L 10/07/18 20:00 ABG pCO2 31 mmHg (35-45) L 10/08/18 05:25 ABG pO2 157 mmHg (85-104) H 10/08/18 05:25 ABG HCO3 17 mEq/L (21-27) L 10/08/18 05:25 ABG Total CO2 18 mEq/L (20-26) L 10/08/18 05:25 ABG O2 Saturation 99 % (95-98) H 10/08/18 05:25 ABG Base Excess -8 mEq/L (-2 to 3) L 10/08/18 05:25 Potassium 3.4 mEq/L (3.5-5.1) L 10/07/18 22:07 Carbon Dioxide 22 mEq/L (23-29) L 10/08/18 12:30 Creatinine 1.47 mg/dL (0.70-1.30) H 10/08/18 12:30 Est GFR (Non-Af Amer) 50 (> 60) L 10/08/18 12:30 Glucose 161 mg/dL (70-105) H 10/08/18 12:30 POC Glucose 269 mg/dL (70-99) H 10/07/18 23:36 Calculated Osmolality 301 (280-300) H 10/08/18 07:02 Lactic Acid 4.3 mmol/L (0.5-2.2) H* 10/08/18 12:30 Calcium 8.3 mg/dL (8.6-10.3) L 10/08/18 12:30 Phosphorus 4.6 mg/dL (2.7-4.5) H 10/08/18 07:02 Total Bilirubin 2.1 mg/dL (0.3-1.0) H 10/07/18 13:28 AST 229 Units/L (13-39) H 10/07/18 13:28 ALT 64 Units/L (7-52) H 10/07/18 13:28 Serum Total Protein 5.9 g/dL (6.4-8.9) L 10/07/18 13:28 Urine Color Red (Yellow) A 10/08/18 14:26 Urine Clarity Turbid (Clear) A 10/08/18 14:26 Ur Specific [place] > 1.030 (1.010-1.025) H 10/08/18 14:26 Urine Protein 100 mg/dL (Neg-Trace) H 10/08/18 14:26 Urine Ketones 15 mg/dL (Negative) H 10/08/18 14:26 Urine Blood Large (Negative) H 10/08/18 14:26 Urine Nitrite Positive (Negative) A 10/08/18 14:26 Urine Bilirubin Moderate (Negative) H 10/08/18 14:26 Ur Leukocyte Esterase Moderate (Negative) H 10/08/18 14:26 Urine Microscopic RBC TNTC per hpf (0-3) H 10/08/18 14:26 Urine Microscopic WBC 50-100 per hpf (0-3) H 10/08/18 14:26 Ur Squamous Epith Cells Many per lpf (None-Few) H 10/08/18 14:26 Granular Casts Few per lpf (None Seen) H 10/08/18 14:26 Ur Culture Indicated? YES (NO) A 10/08/18 14:26 - Microbiology Findings Microbiology Findings: Microbiology, Last 48 Hours 10/08/18 13:41 Sputum Culture - Preliminary Sputum 10/07/18 13:28 Blood Culture - Preliminary Peripheral Venipuncture Culture is incubating and being continuously monitored for growth. Final report to follow. 10/07/18 13:28 Blood Culture - Preliminary Peripheral Venipuncture Culture is incubating and being continuously monitored for growth. Final report to follow. - Clinical Findings Intake & Output: Intake & Output 10/08/18 10/08/18 10/08/18 07:59 15:59 23:59 Intake Total 907 / 1315 408 / 1315 Output Total 325 / 420 95 / 420 Balance 582 / 895 313 / 895 - Attending Attestation I examined this patient and my medical decision-making was reviewed with the Resident Physician. I agree with the documented findings, disposition and treatment plan as described except to the extent set forth below. Patient seen and examined. Labs, radiology, chart personally reviewed. Agree with resident's history and physical, assessment, plan with following comments: DRY KILN BURNER: Patient does not follows commands, patient is still requiring sedation and this is mainly for the vent synchrony and also until he completes his hypothermia treatment. We will start rewarming once he has at least 18 hours from the time I have decreased his temperature old. Patient is requiring paralytic mainly for the shivering. Pulmonary: Acceptable oxygenation and ventilation. Patient has underlying COPD and checking his ABG on the vent setting it seems to be appropriate. Cardiovascular: Patient is in cardiogenic shock. This is unclear at this time with his ischemic cardiomyopathy the outcome. To continue amiodarone and also supporting his blood pressure with vasopressor. Hypertension persist. GI: Nutrition per dietary and GI prophylaxis per routine Heme: DVT prophylaxis per routine ID: Continue antibiotics and plan to de-escalation Renal; urine out put and renal function reviewed Endorcine: blood glucose is monitored Lines: all lines checked and no evidence of infections Skin: skin care to prevent pressure ulcers per nursing routine care Dispo: ICU Code: Full. Prognosis. Poor and they have made with the family and I told him that. Family stated they want him to be transferred to [place], however he is not stable for transfer. I have explained to the family lives. Patient at least 72 hours and examined on what would happen after rewarming and may need to have more images such as follow-up CT head based on his evaluation. I spent 40 min of Critical Care time with this patient. It involved decision making of high complexity to assess, manipulate, and support vital organ system failure and/or to prevent further life threatening deterioration of the patient's condition. The time involved in the performance of separately reportable procedures was not counted toward critical care time.
[2018-10-08] MEDS: Chlorhexidine Rinse 15 ML MOUTHWASH MM SCH ×2 (09:09→20:15)
[2018-10-08] MEDS: Pantoprazole 40 MG VIAL IVP SCH (09:09)
[2018-10-08] MEDS: Aspirin 81 MG TAB.CHEW PO SCH (09:09)
[2018-10-08] MEDS: *HR* Ticagrelor 90 MG TABLET PO SCH ×2 (09:09→20:22)
[2018-10-08] MEDS: *HR* Heparin 5,000 UNIT/ML VIAL SQ SCH ×3 (09:31→21:11)
[2018-10-08] MEDS: Budesonide/Formoterol 160/4.5 1 PUFF INH IH SCH ×2 (09:33→21:47)
--- NOTE | 2018-10-08 09:40 | Electrocardiograph Report ---
[address] [place], [place] [address] Test Date: 2018-10-08 Pat Name: Vikas Acevedo Department: 109 Room: [facility] Gender: M [employer] Operator: : 1965 Requested By: Pool Bellamy Order Number: [id number] Reading MD: Chandana Campbell Measurements Intervals [place] Rate: 69 P: 56 UT: 213 QRS: 1 QRSD: 97 T: 0 QT: 197 QTc: 216 Interpretive Statements SINUS RHYTHM WITH FIRST DEGREE AV BLOCK POSSIBLE LEFT ATRIAL ENLARGEMENT POSSIBLE INFERIOR MYOCARDIAL INFARCTION, PROBABLY OLD NONSPECIFIC ST-T CHANGES Electronically Signed On 10-08-2018 9:38:41 EDT by Chandana Campbell
--- NOTE | 2018-10-08 10:29 | Cardiology Progress Note ---
Date of Encounter: 10/08/18 Time of Encounter: 08:00 Assessment and Plan (1) Cardiac arrest Current Visit: Yes Status: Acute Suspected v-fib arrest; s/p mutiple (5+) rounds of CPR. Anterior STEMI on ECG once ROSC achieved. Remains intubated/sedated. Therapeutic hypothermia. Vent mgmt per ICU team. Minimal urine output noted this AM. SCr elevation this AM. (2) Atrial fibrillation with RVR Current Visit: Yes Status: Acute Afib with RVR yesterday, now NSR. Unclear chronicity. Low dose BB started today. CHA2Ds Vasc=3 (CAD, CHF, reported hx of HTN); continue heparin gtt for now. Will need to discuss long-term AC prior to discharge if patient has functional recovery. (3) STEMI (ST elevation myocardial infarction) Current Visit: Yes Status: Acute Patient presented to [facility] as witnessed cardiac arrest. ECG found to have STEMI. No prior reported CV history. LHC 10/07/18: s/p PTCA/CHANA to mLAD TTE 10/07/18: EF 15% with severe global LV systolic dysfunction, moderate to severe LVDD, no LV thrombus, mild biatrial enlargement, mild TR, mild MS Continue therapeutic hypothermia per protocol. Discussed with Dr. Man with recommendations to add low dose BB added today with holding parameters; continue uninterrupted DAPT (asa + brilinta). Continue statin. No ACEi/ARB due to hypotension. NSVT noted overnight, max 11 beats, continue BB if able. Keep K >4.0, Mg >2.0 Qualifiers: Involved coronary artery: LAD coronary artery Qualified Code(s): I21.02 - ST elevation (STEMI) myocardial infarction involving left anterior descending coronary artery Discussion w patient/family: The assessment and plan as outlined above was discussed with the patient and/or family members who expressed understanding and agreement. All questions were answered. Thank you for involving us in the care of your patient. Please call with any questions. THe patient was discussed and reviewed with Dr. Bellamy and Dr. Man Subjective Principal diagnosis: Cardiac arrest Interval history: Seen and examined with Dr. Man. Intubated/sedated. Therapeutic hypothermia. Objective Vital Signs, Last 4 Hours Temp Pulse Resp BP Pulse Ox 10/08/18 09:55 91.7 F L 79 16 88/76 100 10/08/18 09:34 16 95/83 99 10/08/18 09:00 91.7 F L 68 16 101/88 99 10/08/18 08:00 91.4 F L 69 16 110/97 99 10/08/18 07:59 81 10/08/18 07:52 16 112/98 99 10/08/18 07:00 92.1 F L 79 16 127/106 99 10/08/18 06:30 94.8 F L 89 16 100/87 99 General: Other (intubated/sedated) Cardiac: Reg Rate and Rhythm, Normal S1 and S2 Lungs: Other (coarse, anterior) Neuro: Other (intubated/sedated) Abdomen: Soft Skin: No rashes noted on visualized skin Extremities: Other (bilateral pulses positive per doppler signal) Results 10/08/18 07:02 10/08/18 07:02 Lab Results 10/07/18 10/07/18 10/07/18 13:28 13:28 18:40 WBC 16.3 H D Hgb 13.7 Hct 43.7 Plt Count 237 INR 1.2 APTT 30.4 Sodium 139 Potassium 3.7 Chloride 104 Carbon Dioxide 12 L BUN 9 Creatinine 1.27 Glucose 219 H Calcium 8.1 L Magnesium Total Bilirubin 2.1 H AST 229 H ALT 64 H Alkaline Phosphatase 100 TSH 1.881 10/07/18 10/07/18 10/07/18 18:40 18:41 22:07 WBC 17.4 H 15.0 H Hgb 14.3 13.7 Hct 43.7 41.1 Plt Count 215 203 INR APTT Sodium 141 Potassium 3.7 Chloride 106 Carbon Dioxide 17 L BUN 10 Creatinine 1.16 Glucose 176 H Calcium 8.4 L Magnesium 2.4 Total Bilirubin AST ALT Alkaline Phosphatase TSH 10/07/18 10/07/18 10/08/18 22:07 22:07 07:02 WBC 14.6 H Hgb 13.1 Hct 40.6 Plt Count 178 INR 1.2 APTT 32.1 Sodium 138 Potassium 3.4 L Chloride 106 Carbon Dioxide 15 L BUN 12 Creatinine 1.09 Glucose 246 H Calcium 8.2 L Magnesium 2.3 Total Bilirubin AST ALT Alkaline Phosphatase TSH 10/08/18 10/08/18 07:02 07:02 WBC Hgb Hct Plt Count INR 1.2 APTT 31.4 Sodium 142 Potassium 3.6 Chloride 104 Carbon Dioxide 19 L BUN 14 Creatinine 1.33 H Glucose 224 H Calcium 8.4 L Magnesium 2.5 Total Bilirubin AST ALT Alkaline Phosphatase TSH Active Medications Albuterol/Ipratropium (Duoneb) 3 ml IH [id number] COUNTS INCLUDE 234 BEDS AT THE [facility] Stop: 04/08/19 16:01 Last Admin: 10/08/18 09:33 Dose: 3 ml Documented by: Artificial Tears (Akwa Tears) 1 drop BOTH EYES Q2HR PRN; Protocol PRN Reason: Dry Eyes Stop: 04/08/19 23:02 Artificial Tears (Akwa Tears) 1 drop BOTH EYES Q4HR COUNTS INCLUDE 234 BEDS AT THE [facility]; Protocol Stop: 04/09/19 00:01 Last Admin: 10/08/18 08:18 Dose: 1 drop Documented by: Aspirin (Aspirin) 81 mg PO DAILY COUNTS INCLUDE 234 BEDS AT THE [facility] Stop: 04/09/19 09:01 Last Admin: 10/08/18 09:09 Dose: 81 mg Documented by: Atorvastatin Calcium (Lipitor) 20 mg PO HS COUNTS INCLUDE 234 BEDS AT THE [facility] Stop: 04/08/19 21:01 Last Admin: 10/07/18 20:45 Dose: 20 mg Documented by: Budesonide/Formoterol Fumarate (Symbicort) 2 puff IH BIDR COUNTS INCLUDE 234 BEDS AT THE [facility]; Protocol Stop: 04/08/19 22:01 Last Admin: 10/08/18 09:33 Dose: 2 puff Documented by: Carvedilol (Coreg) 3.125 mg PO BIDWM COUNTS INCLUDE 234 BEDS AT THE [facility]; Protocol Stop: 04/09/19 08:01 Last Admin: 10/08/18 09:09 Dose: 3.125 mg Documented by: Chlorhexidine Gluconate (Chlorhexidine Rinse) 15 ml MM BID COUNTS INCLUDE 234 BEDS AT THE [facility] Stop: 04/09/19 09:01 Last Admin: 10/08/18 09:09 Dose: 15 ml Documented by: Heparin Sodium (Porcine) (Heparin) 5,000 unit SQ Q8HCO COUNTS INCLUDE 234 BEDS AT THE [facility]; Protocol Stop: 04/09/19 09:01 Last Admin: 10/08/18 09:31 Dose: 5,000 unit Documented by: Piperacillin Sod/Tazobactam (Sod 3.375 gm/ Sodium Chloride) 100 mls @ 25 mls/hr IVPB Q8H COUNTS INCLUDE 234 BEDS AT THE [facility] Stop: 04/08/19 14:01 Last Infusion: 10/08/18 09:23 Dose: Infused Documented by: Propofol (Diprivan) 1,000 mg in 100 mls @ 1.919 mls/hr IVC .Q24H [facility]IE; Protocol Stop: 04/08/19 17:16 Last Titration: 10/08/18 10:10 Dose: 20 mcg/kg/min, 7.7 mls/hr Documented by: Cisatracurium Besylate 200 mg/ (Sodium Chloride) 200 mls @ 11.512 mls/hr IVC CONT STEFANIE; Protocol Stop: 04/08/19 19:31 Last Titration: 10/08/18 08:13 Dose: 0 mcg/kg/min, 0 mls/hr Documented by: Dexmedetomidine HCl (Precedex Premix) 400 mcg in 100 mls @ 3.198 mls/hr IVC .Q24H ST[facility]IE; Protocol Stop: 04/08/19 19:31 Last Titration: 10/07/18 22:45 Dose: 0 mcg/kg/hr, 0 mls/hr Documented by: Amiodarone HCl/Dextrose (Amiodarone Drip Premix 360mg/200ml) 360 mg in 200 mls @ 16.667 mls/hr IVC CONT STEFANIE Stop: 04/08/19 23:46 Last Admin: 10/08/18 10:56 Dose: 0.5 mg/min, 16.7 mls/hr Documented by: Norepinephrine Bitartrate 8 mg (/ Sodium Chloride) 258 mls @ 9.675 mls/hr IVC CONT STEFANIE; Protocol Stop: 04/09/19 11:16 Insulin Human Lispro (Humalog) 0 units SQ Q6HR STEFANIE; Protocol Stop: 04/09/19 12:01 Naloxone HCl (Narcan) 0.4 mg IVP Q2MPRN PRN PRN Reason: SEE COMMENTS Stop: 04/08/19 13:25 Pantoprazole Sodium (Protonix) 40 mg IVP DAILY COUNTS INCLUDE 234 BEDS AT THE [facility] Stop: 04/08/19 13:31 Last Admin: 10/08/18 09:09 Dose: 40 mg Documented by: Ticagrelor (Brilinta) 90 mg PO BID COUNTS INCLUDE 234 BEDS AT THE [facility] Stop: 04/08/19 21:01 Last Admin: 10/08/18 09:09 Dose: 90 mg Documented by: - Imaging and Cardiology Echo: report reviewed Cardiac cath: report reviewed Other Results: Telemetry reviewed, NSVT noted overnight, max 11 beats. - EKG Interpretation EKG results cardiology: personally reviewed Consult Discharge Plan - Plan Referrals: NONE,PCP [Primary Care Provider] -
[2018-10-08] MEDS: Amiodarone Premix 360 MG/200 ML BAG IVC SCH ×3 (10:56→22:55)
[2018-10-08] MEDS: Norepinephrine 8 MG in 0.9 % Sodium Chloride 250 ML IVC SCH (11:20)
--- NOTE | 2018-10-08 11:48 | Procedure Note ---
<Rian Johnston - Last Filed: 10/08/18 11:46> Date of procedure: 10/08/18 Pre-op diagnosis: Hypotension Post-op diagnosis: same Procedure: A time-out was completed verifying correct patient, procedure, site, positioning, and special equipment if applicable. The patient was placed in a dependent position appropriate for central line placement based on the vein to be cannulated. The patients right groin was prepped and draped in sterile fashion. A triple lumen Cordis catheter was introduced into the the common femoral vein using the Seldinger technique and under ultrasound guidance. The catheter was threaded smoothly over the guide wire and appropriate blood return was obtained. Each lumen of the catheter was evacuated of air and flushed with sterile saline. The catheter was then sutured in place to the skin and a sterile dressing applied. Perfusion to the extremity distal to the point of catheter insertion was checked and found to be adequate. Dr. Vaughn was present for the entire procedure. Estimated Blood Loss: 3 ml The patient tolerated the procedure well and there were no complications. Surgeon: Rian Johnston Was there an recruitment assistant present: Yes Deputy Sheriff Generalist: Scott Bonilla Estimated blood loss (cc): 3 Specimen: none <Scott Bonilla - Last Filed: 10/08/18 16:20> Procedure: I examined this patient and my medical decision-making was reviewed with the Resident Physician. I agree with the documented findings, disposition and treatment plan as described except to the extent set forth below. I have personally supervised Dr. Johnston placement of the right femoral central line without immediate complications.
[2018-10-08] MEDS: Insulin LISPRO 300 UNITS/3 ML VIAL SQ SCH ×3 (12:16→23:16)
[2018-10-08 12:48] LABS: Basophils % 0.1 %; Hematocrit 37.5 % (37.5-50.1); Hemoglobin 12.5 g/dL (12.9-16.9); Immature Granulocytes % 0.6 % (0-4); Lymphocytes # 0.8 K/mcL (0.6-4.6); Lymphocytes % 4.7 %; Mean Corpuscular HGB Conc 33.3 g/dL (31.6-35.5); Mean Corpuscular Volume 93.1 fL (83.0-100.0); Mean Platelet Volume 10.6 fL (9.4-12.4); Monocytes # 1.2 K/mcL (0.0-1.3); Monocytes % 7.4 %; Nucleated Red Blood Cells 0.1 /100 WBC (0); Platelet Count 189 K/mcL (140-400); Red Blood Count 4.03 M/mcL (4.19-5.50); Red Cell Distribution Width 14.4 % (11.5-14.5); Segmented Neutrophils % 87.2 %
[2018-10-08 12:57] LABS: INR 1.2; Prothrombin Time 13.8 Seconds (9.4-12.1)
[2018-10-08 13:00] LABS: Activated Partial Thrombo Time 35.5 Seconds (26.0-36.0); BUN/Creatinine Ratio 12 (6-26); Blood Urea Nitrogen 17 mg/dL (6-20); Calcium 8.3 mg/dL (8.6-10.3); Carbon Dioxide 22 mEq/L (23-29); Chloride 106 mEq/L (98-107); Glucose 161 mg/dL (70-105); Magnesium 2.4 mg/dL (1.6-2.6); Osmolality,Calculated 291 (280-300); Phosphorous 3.7 mg/dL (2.7-4.5); Potassium 4.2 mEq/L (3.5-5.1); Sodium 138 mEq/L (136-145); eGFR For African Americans > 60 (> 60); eGFR For Non-African Americans 50 (> 60)
[2018-10-08 14:59] LABS: Bilirubin,Urine Moderate (Negative); Blood,Urine Large (Negative); Clarity,Urine Turbid (Clear); Color,Urine Red (Yellow); Glucose,Urine (UA) Normal (Normal); Ketones,Urine 15 mg/dL (Negative); Leukocyte Esterase,Urine Moderate (Negative); Nitrite,Urine Positive (Negative); Protein,Urine 100 mg/dL (Neg-Trace); Specific Gravity,Urine > 1.030 (1.010-1.025); Urobilinogen,Urine Normal (Normal)
[2018-10-08 15:02] LABS: Bacteria,Urine None Seen per hpf (None-Few); Squamous Epithelial Cell,Urine Many per lpf (None-Few); WBC,Urine 50-100 per hpf (0-3)
[2018-10-08 15:19] LABS: RBC,Urine TNTC per hpf (0-3); Uric Acid Crystals,Urine Present
[2018-10-08 15:20] LABS: Granular Casts,Urine Few per lpf (None Seen); Hyaline Casts,Urine Few per lpf (None-Few)
[2018-10-08 18:18] LABS: Basophils % 0.1 %; Hematocrit 37.7 % (37.5-50.1); Hemoglobin 12.6 g/dL (12.9-16.9); Immature Granulocytes % 0.4 % (0-4); Lymphocytes # 0.8 K/mcL (0.6-4.6); Lymphocytes % 4.3 %; Mean Corpuscular HGB Conc 33.4 g/dL (31.6-35.5); Mean Corpuscular Hemoglobin 30.6 pg (28.0-33.3); Mean Corpuscular Volume 91.5 fL (83.0-100.0); Mean Platelet Volume 10.2 fL (9.4-12.4); Monocytes # 1.2 K/mcL (0.0-1.3); Monocytes % 6.6 %; Neutrophils # 15.8 K/mcL (1.6-8.9); Nucleated Red Blood Cells 0.3 /100 WBC (0); Platelet Count 182 K/mcL (140-400); Red Blood Count 4.12 M/mcL (4.19-5.50); Red Cell Distribution Width 14.3 % (11.5-14.5); Segmented Neutrophils % 88.6 %; White Blood Count 17.9 K/mcL (4.3-11.1)
[2018-10-08 18:29] LABS: INR 1.2; Prothrombin Time 13.6 Seconds (9.4-12.1)
[2018-10-08 18:32] LABS: Activated Partial Thrombo Time 33.8 Seconds (26.0-36.0)
[2018-10-08 18:35] LABS: Calcium 8.3 mg/dL (8.6-10.3); Magnesium 2.3 mg/dL (1.6-2.6); Phosphorous 3.8 mg/dL (2.7-4.5); Potassium 3.9 mEq/L (3.5-5.1)
[2018-10-08] MEDS: Cisatracurium 200 MG in 0.9 % Sodium Chloride 180 ML IVC SCH (19:45)
[2018-10-08] MEDS: Dexmedetomidine HCl 400 MCG/100 ML MLS IVC SCH (19:56)
[2018-10-09 00:13] LABS: Basophils % 0.1 %; Hematocrit 38.4 % (37.5-50.1); Hemoglobin 12.8 g/dL (12.9-16.9); Immature Granulocytes % 0.8 % (0-4); Lymphocytes % 4.7 %; Mean Corpuscular HGB Conc 33.3 g/dL (31.6-35.5); Mean Corpuscular Hemoglobin 30.4 pg (28.0-33.3); Mean Corpuscular Volume 91.2 fL (83.0-100.0); Mean Platelet Volume 10.5 fL (9.4-12.4); Monocytes # 1.3 K/mcL (0.0-1.3); Monocytes % 6.2 %; Neutrophils # 18.1 K/mcL (1.6-8.9); Nucleated Red Blood Cells 0.2 /100 WBC (0); Platelet Count 184 K/mcL (140-400); Red Blood Count 4.21 M/mcL (4.19-5.50); Red Cell Distribution Width 14.4 % (11.5-14.5); Segmented Neutrophils % 88.2 %; White Blood Count 20.5 K/mcL (4.3-11.1)
[2018-10-09] MEDS: Norepinephrine 8 MG in 0.9 % Sodium Chloride 250 ML IVC SCH ×3 (00:20→22:15)
[2018-10-09 00:25] LABS: INR 1.2; Prothrombin Time 13.7 Seconds (9.4-12.1)
[2018-10-09 00:27] LABS: Activated Partial Thrombo Time 41.6 Seconds (26.0-36.0); Calcium 8.4 mg/dL (8.6-10.3); Magnesium 2.2 mg/dL (1.6-2.6); Phosphorous 4.9 mg/dL (2.7-4.5)
[2018-10-09] MEDS: Artificial Tears SOLN 15 ML BOTTLE BOTH EYES SCH ×2 (03:20→08:17)
[2018-10-09] MEDS: Dexmedetomidine HCl 400 MCG/100 ML MLS IVC SCH ×2 (03:20→23:20)
[2018-10-09] MEDS: Ipratropium/Albuterol Neb 3 ML IH SCH ×4 (03:51→22:04)
[2018-10-09 04:27] LABS: ABG Base Excess -7 mEq/L (-2 to 3); ABG HCO3 16 mEq/L (21-27); ABG Oxygen Saturation 97 % (95-98); ABG PCO2 27 mmHg (35-45); ABG PH 7.39 pH Units (7.32-7.45); ABG PO2 94 mmHg (85-104); ABG TCO2 17 mEq/L (20-26); Blood Gas Modality ASSIST CONTROL; Blood Gas PEEP 5 cm H2O; Blood Gas VT 550 cc
[2018-10-09] MEDS: Piperacillin/Tazobactam 3.375 GM in 0.9 % Sodium Chloride Mini Bag 100 ML IVPB SCH ×3 (05:49→22:12)
[2018-10-09] MEDS: Insulin LISPRO 300 UNITS/3 ML VIAL SQ SCH ×4 (05:59→23:13)
--- NOTE | 2018-10-09 07:47 | Pulmonology Progress Note ---
<ChadScott M - Last Filed: 10/09/18 14:58> Date of Encounter: 10/09/18 Assessment and Plan (1) Cardiac arrest Current Visit: Yes Status: Acute (2) Acute respiratory failure with hypoxia Current Visit: Yes Status: Acute Objective PUL Vital signs: Last Vital Signs Temp 98.6 F 10/09/18 11:27 Pulse 88 10/09/18 13:00 Resp 24 10/09/18 13:00 BP 90/69 10/09/18 13:00 Pulse Ox 96 10/09/18 13:00 Ventilator Settings Ventilator Settings: Ventilator Settings, Last 8 Hours Actual Respiratory Rate 25 Positive End Expiratory 5 Pressure Peak Inspiratory Airway 10 Pressure Results - Laboratory Findings CBC and BMP: 10/09/18 00:00 10/09/18 00:00 ABG ABG pH 7.39 pH Units (7.32-7.45) 10/09/18 04:24 ABG pCO2 27 mmHg (35-45) L 10/09/18 04:24 ABG pO2 94 mmHg (85-104) 10/09/18 04:24 ABG O2 Saturation 97 % (95-98) 10/09/18 04:24 PT/INR, D-dimer PT 13.7 Seconds (9.4-12.1) H 10/09/18 00:00 Abnormal lab findings: Abnormal lab results WBC 20.5 K/mcL (4.3-11.1) H 10/09/18 00:00 RBC 4.12 M/mcL (4.19-5.50) L 10/08/18 18:00 Hgb 12.8 g/dL (12.9-16.9) L 10/09/18 00:00 MCHC 31.4 g/dL (31.6-35.5) L 10/07/18 13:28 RDW 14.7 % (11.5-14.5) H 10/08/18 07:02 Neutrophils # 18.1 K/mcL (1.6-8.9) H 10/09/18 00:00 Monocytes # 1.4 K/mcL (0.0-1.3) H 10/07/18 18:41 Nucleated RBCs/100 WBC 0.2 /100 WBC (0) H 10/09/18 00:00 PT 13.7 Seconds (9.4-12.1) H 10/09/18 00:00 APTT 41.6 Seconds (26.0-36.0) H 10/09/18 00:00 ABG pH 7.28 pH Units (7.32-7.45) L 10/07/18 20:00 ABG pCO2 27 mmHg (35-45) L 10/09/18 04:24 ABG pO2 157 mmHg (85-104) H 10/08/18 05:25 ABG HCO3 16 mEq/L (21-27) L 10/09/18 04:24 ABG Total CO2 17 mEq/L (20-26) L 10/09/18 04:24 ABG O2 Saturation 99 % (95-98) H 10/08/18 05:25 ABG Base Excess -7 mEq/L (-2 to 3) L 10/09/18 04:24 Potassium 3.4 mEq/L (3.5-5.1) L 10/07/18 22:07 Carbon Dioxide 21 mEq/L (23-29) L 10/09/18 00:00 BUN 21 mg/dL (6-20) H 10/09/18 00:00 Creatinine 1.68 mg/dL (0.70-1.30) H 10/09/18 00:00 Est GFR ( Amer) 52 (> 60) L 10/09/18 00:00 Est GFR (Non-Af Amer) 43 (> 60) L 10/09/18 00:00 Glucose 133 mg/dL (70-105) H 10/09/18 00:00 POC Glucose 116 mg/dL (70-99) H 10/08/18 23:16 Calculated Osmolality 301 (280-300) H 10/08/18 07:02 Lactic Acid 2.5 mmol/L (0.5-2.2) H 10/09/18 03:45 Calcium 8.4 mg/dL (8.6-10.3) L 10/09/18 00:00 Phosphorus 4.9 mg/dL (2.7-4.5) H 10/09/18 00:00 Total Bilirubin 2.1 mg/dL (0.3-1.0) H 10/07/18 13:28 AST 229 Units/L (13-39) H 10/07/18 13:28 ALT 64 Units/L (7-52) H 10/07/18 13:28 Serum Total Protein 5.9 g/dL (6.4-8.9) L 10/07/18 13:28 Urine Color Red (Yellow) A 10/08/18 14:26 Urine Clarity Turbid (Clear) A 10/08/18 14:26 Ur Specific Weston > 1.030 (1.010-1.025) H 10/08/18 14:26 Urine Protein 100 mg/dL (Neg-Trace) H 10/08/18 14:26 Urine Ketones 15 mg/dL (Negative) H 10/08/18 14:26 Urine Blood Large (Negative) H 10/08/18 14:26 Urine Nitrite Positive (Negative) A 10/08/18 14:26 Urine Bilirubin Moderate (Negative) H 10/08/18 14:26 Ur Leukocyte Esterase Moderate (Negative) H 10/08/18 14:26 Urine Microscopic RBC TNTC per hpf (0-3) H 10/08/18 14:26 Urine Microscopic WBC 50-100 per hpf (0-3) H 10/08/18 14:26 Ur Squamous Epith Cells Many per lpf (None-Few) H 10/08/18 14:26 Granular Casts Few per lpf (None Seen) H 10/08/18 14:26 Ur Culture Indicated? YES (NO) A 10/08/18 14:26 - Microbiology Findings Microbiology Findings: Microbiology, Last 48 Hours 10/08/18 13:41 Sputum Culture - Preliminary Sputum 10/08/18 14:26 Urine Culture - Final Urine,Clean Catch No growth. 10/08/18 14:26 Legionella Antigen - Final Urine,Clean Catch Streptococcus pneumoniae Antigen (M - Final 10/07/18 13:28 Blood Culture - Preliminary Peripheral Venipuncture Culture is incubating and being continuously monitored for growth. Final report to follow. 10/07/18 13:28 Blood Culture - Preliminary Peripheral Venipuncture Culture is incubating and being continuously mon itored for growth. Final report to follow. - Clinical Findings Intake & Output: Intake & Output 10/08/18 10/09/18 10/09/18 23:59 07:59 15:59 Intake Total 887 / 2202 709 / 1162 453 / 1162 Output Total 150 / 575 55 / 155 100 / 155 Balance 737 / 1627 654 / 1007 793 / 1007 Consult Discharge Plan - Plan Referrals: NONE,PCP [Primary Care Provider] - - Attending Attestation I examined this patient and my medical decision-making was reviewed with the Resident Physician. I agree with the documented findings, disposition and t reatment plan as described except to the extent set forth below. Patient seen and examined. Labs, radiology, chart personally reviewed. Agree with resident's history and physical, assessment, plan with following comments: [employer]STER: Patient follows commands, this is after extubation. Prior to that patient was very agitated and he was requiring significant amount of sedation to keep him relax and vent synchrony. There is no evidence of any neurological deficit at this time and it appears to be in fact he had successful CPR and hypothermia treatment has helped him. Pulmonary: Acceptable oxygenation and ventilation. Patient is not tolerating long spontaneous breathing trial and because of his underlying cardiomyopathy, decided to wake patient up and extubate and that was not successful wait to do it and patient seems to be doing good. I am hoping he will not have any pulmonary edema after removing positive pressure. Cardiovascular: Patient is in cardiogenic shock and I am hoping with sedation off he will not need vasopressors or if he needs a lower dose. GI: Nutrition per dietary and GI prophylaxis per routine Heme: DVT prophylaxis per routine ID: Continue antibiotics and plan to de-escalation Renal; urine out put and renal function reviewed Endorcine: blood glucose is monitored Lines: all lines checked and no evidence of infections Skin: skin care to prevent pressure ulcers per nursing routine care Dispo: ICU Code: Full. Prognosis. Overall poor prognosis if his cardiac function does not recover. I spent 40 min of Critical Care time with this patient. It involved decision making of high complexity to assess, manipulate, and support vital organ system failure and/or to prevent further life threatening deterioration of the patient's condition. The time involved in the performance of separately reportable procedures was not counted toward critical care time. <Ewa Finley - Last Filed: 10/09/18 18:41> Date of Encounter: 10/09/18 Time of Encounter: 09:05 Assessment and Plan (1) Cardiopulmonary arrest Current Visit: No Status: Acute Suspected V-fib arrest on 10/07. Had over five rounds of CPR. Anterior STEMI on EKG. -Hypothermia protocol has been completed. -Regained consciousness today with episodes of agitation. -Cardiology is following. -Continue pressor support for hypotension -Cardiology plans to add beta justine when possible. (2) Acute respiratory failure with hypoxia Current Visit: Yes Status: Acute Patient was extubated today and tolerated well. -Currently, respiratory status is worsening. -Reintubation may be needed tonight. -Respiratory rate is 33. (3) Hypotension Current Visit: Yes Status: Acute This is secondary to cardiac arrest. Patient has left femoral line. -Currently on Levophed, titrate to MAP >65 or systolic >90 -Continue to monitor blood pressure -Family have come in from [place] and would like for him to be transferred to [place] so that he can be nearer to them. -Suspect he is homeless Qualifiers: Hypotension type: other hypotension type Qualified Code(s): I95.89 - Other hypotension (4) STEMI (ST elevation myocardial infarction) Current Visit: Yes Status: Acute ECG on 10/07 showed anterior STEMI. Had PCI on same day EF on Echocardiogram showed LVEF of 15% with severe global LV systolic dysfunction, moderate to severe LVDD, mild biatrial enlargement, mild TR, mild MS Has had hypotension during stay -Cardiology recommends no ACEI or ARB because of hypotension. -Continue ASA -Brilinta has been changed to Plavix so there can be once a day dosing. Qualifiers: Involved coronary artery: LAD coronary artery Qualified Code(s): I21.02 - ST elevation (STEMI) myocardial infarction involving left anterior descending coronary artery Subjective Principal diagnosis: Cardiac arrest Interval history: Patient had blood in NG and Quiles this morning. He is trying to follow commands. Was extubated this morning on 4 L NC. Failed bedside swallow. Consult to Speech. Objective PUL Vital signs: Last Vital Signs Temp 95.2 F L 10/09/18 06:00 Pulse 79 10/09/18 06:00 Resp 22 10/09/18 07:14 BP 86/77 10/09/18 07:14 Pulse Ox 99 10/09/18 07:14 GENERAL: NEUROLOGICAL: RASS: +1, alert, oriented to name. Was given multiple choice for place and answered "sometimes" when hospital was a choice. Answered 2017 for year and "not Trump SKIN: Cool, no rashes, no skin breakdown EYES: pupils equal and reactive to light, nonicteric ENT: moist mucosa CV: regular rate and rhythm, no murmurs, clicks, or gallops RESPIRATORY: rhonchi over right lung leslie, no wheezes or rales GI: soft, nontender, nondistended, normal bowel sounds EXTREMITIES: could not palpate dorsalis pedis pulses bilaterally, skin over legs was scaly : a quantity of red urine was seen in Quiles bag Ventilator Settings Ventilator Settings: Ventilator Settings, Last 8 Hours Ventilator Tidal Volume 550 Setting Ventilator Tidal Volume 550 Setting Ventilator Tidal Volume 550 Setting Ventilator Tidal Volume 550 Setting Ventilator Tidal Volume 550 Setting Ventilator Tidal Volume 550 Setting Ventilator Tidal Volume 550 Setting Ventilator Tidal Volume 550 Setting Ventilator Tidal Volume 550 Setting Ventilator Tidal Volume 550 Setting Ventilator Respiratory Rate 16 Setting Ventilator Respiratory Rate 16 Setting Ventilator Respiratory Rate 16 Setting Ventilator Respiratory Rate 16 Setting Ventilator Respiratory Rate 16 Setting Ventilator Respiratory Rate 16 Setting Ventilator Respiratory Rate 16 Setting Ventilator Respiratory Rate 16 Setting Ventilator Respiratory Rate 16 Setting Actual Respiratory Rate 25 Actual Respiratory Rate 29 Actual Respiratory Rate 16 Actual Respiratory Rate 16 Actual Respiratory Rate 16 Actual Respiratory Rate 16 Actual Respiratory Rate 16 Actual Respiratory Rate 16 Actual Respiratory Rate 16 Actual Respiratory Rate 16 Positive End Expiratory 5 Pressure Positive End Expiratory 5 Pressure Positive End Expiratory 5 Pressure Positive End Expiratory 5 Pressure Positive End Expiratory 5 Pressure Positive End Expiratory 5 Pressure Positive End Expiratory 5 Pressure Positive End Expiratory 5 Pressure Positive End Expiratory 5 Pressure Positive End Expiratory 5 Pressure Positive End Expiratory 5 Pressure Positive End Expiratory 5 Pressure Peak Inspiratory Airway 10 Pressure Peak Inspiratory Airway 13 Pressure Peak Inspiratory Airway 11 Pressure Peak Inspiratory Airway 16 Pressure Peak Inspiratory Airway 21 Pressure Peak Inspiratory Airway 21 Pressure Peak Inspiratory Airway 19 Pressure Peak Inspiratory Airway 21 Pressure Peak Inspiratory Airway 22 Pressure Peak Inspiratory Airway 22 Pressure Peak Inspiratory Airway 23 Pressure Results - Laboratory Findings CBC and BMP: 10/09/18 00:00 10/09/18 00:00 ABG ABG pH 7.39 pH Units (7.32-7.45) 10/09/18 04:24 ABG pCO2 27 mmHg (35-45) L 10/09/18 04:24 ABG pO2 94 mmHg (85-104) 10/09/18 04:24 ABG O2 Saturation 97 % (95-98) 10/09/18 04:24 PT/INR, D-dimer PT 13.7 Seconds (9.4-12.1) H 10/09/18 00:00 Abnormal lab findings: Abnormal lab results WBC 20.5 K/mcL (4.3-11.1) H 10/09/18 00:00 RBC 4.12 M/mcL (4.19-5.50) L 10/08/18 18:00 Hgb 12.8 g/dL (12.9-16.9) L 10/09/18 00:00 MCHC 31.4 g/dL (31.6-35.5) L 10/07/18 13:28 RDW 14.7 % (11.5-14.5) H 10/08/18 07:02 Neutrophils # 18.1 K/mcL (1.6-8.9) H 10/09/18 00:00 Monocytes # 1.4 K/mcL (0.0-1.3) H 10/07/18 18:41 Nucleated RBCs/100 WBC 0.2 /100 WBC (0) H 10/09/18 00:00 PT 13.7 Seconds (9.4-12.1) H 10/09/18 00:00 APTT 41.6 Seconds (26.0-36.0) H 10/09/18 00:00 ABG pH 7.28 pH Units (7.32-7.45) L 10/07/18 20:00 ABG pCO2 27 mmHg (35-45) L 10/09/18 04:24 ABG pO2 157 mmHg (85-104) H 10/08/18 05:25 ABG HCO3 16 mEq/L (21-27) L 10/09/18 04:24 ABG Total CO2 17 mEq/L (20-26) L 10/09/18 04:24 ABG O2 Saturation 99 % (95-98) H 10/08/18 05:25 ABG Base Excess -7 mEq/L (-2 to 3) L 10/09/18 04:24 Potassium 3.4 mEq/L (3.5-5.1) L 10/07/18 22:07 Carbon Dioxide 21 mEq/L (23-29) L 10/09/18 00:00 BUN 21 mg/dL (6-20) H 10/09/18 00:00 Creatinine 1.68 mg/dL (0.70-1.30) H 10/09/18 00:00 Est GFR ( Amer) 52 (> 60) L 10/09/18 00:00 Est GFR (Non-Af Amer) 43 (> 60) L 10/09/18 00:00 Glucose 133 mg/dL (70-105) H 10/09/18 00:00 POC Glucose 116 mg/dL (70-99) H 10/08/18 23:16 Calculated Osmolality 301 (280-300) H 10/08/18 07:02 Lactic Acid 2.5 mmol/L (0.5-2.2) H 10/09/18 03:45 Calcium 8.4 mg/dL (8.6-10.3) L 10/09/18 00:00 Phosphorus 4.9 mg/dL (2.7-4.5) H 10/09/18 00:00 Total Bilirubin 2.1 mg/dL (0.3-1.0) H 10/07/18 13:28 AST 229 Units/L (13-39) H 10/07/18 13:28 ALT 64 Units/L (7-52) H 10/07/18 13:28 Serum Total Protein 5.9 g/dL (6.4-8.9) L 10/07/18 13:28 Urine Color Red (Yellow) A 10/08/18 14:26 Urine Clarity Turbid (Clear) A 10/08/18 14:26 Ur Specific Weston > 1.030 (1.010-1.025) H 10/08/18 14:26 Urine Protein 100 mg/dL (Neg-Trace) H 10/08/18 14:26 Urine Ketones 15 mg/dL (Negative) H 10/08/18 14:26 Urine Blood Large (Negative) H 10/08/18 14:26 Urine Nitrite Positive (Negative) A 10/08/18 14:26 Urine Bilirubin Moderate (Negative) H 10/08/18 14:26 Ur Leukocyte Esterase Moderate (Negative) H 10/08/18 14:26 Urine Microscopic RBC TNTC per hpf (0-3) H 10/08/18 14:26 Urine Microscopic WBC 50-100 per hpf (0-3) H 10/08/18 14:26 Ur Squamous Epith Cells Many per lpf (None-Few) H 10/08/18 14:26 Granular Casts Few per lpf (None Seen) H 10/08/18 14:26 Ur Culture Indicated? YES (NO) A 10/08/18 14:26 - Microbiology Findings Microbiology Findings: Microbiology, Last 48 Hours 10/08/18 14:26 Urine Culture - Preliminary Urine,Clean Catch Culture is incubating. 10/08/18 14:26 Legionella Antigen - Final Urine,Clean Catch Streptococcus pneumoniae Antigen (M - Final 10/08/18 13:41 Sputum Culture - Preliminary Sputum 10/07/18 13:28 Blood Culture - Preliminary Peripheral Venipuncture Culture is incubating and being continuously monitored for growth. Final report to follow. 10/07/18 13:28 Blood Culture - Preliminary Peripheral Venipuncture Culture is incubating and being continuously monitored for growth. Final report to follow. - Clinical Findings Intake & Output: Intake & Output 10/08/18 10/08/18 10/09/18 15:59 23:59 07:59 Intake Total 408 / 2202 887 / 2202 381 / 381 Output Total 95 / 575 150 / 575 55 / 55 Balance 313 / 1627 737 / 1627 326 / 326
[2018-10-09] MEDS: *HR* Heparin 5,000 UNIT/ML VIAL SQ SCH ×2 (09:25→20:24)
[2018-10-09] MEDS: Pantoprazole 40 MG VIAL IVP SCH (09:25)
[2018-10-09] MEDS: Chlorhexidine Rinse 15 ML MOUTHWASH MM SCH (09:25)
[2018-10-09] MEDS: Aspirin 81 MG TAB.CHEW PO SCH (09:33)
[2018-10-09] MEDS: *HR* Ticagrelor 90 MG TABLET PO SCH (09:33)
[2018-10-09 09:49] LABS: ABG Base Excess -15 mEq/L (-2 to 3); ABG HCO3 11 mEq/L (21-27); ABG PCO2 25 mmHg (35-45); ABG PH 7.24 pH Units (7.32-7.45); ABG PO2 95 mmHg (85-104); ABG TCO2 12 mEq/L (20-26)
[2018-10-09 09:50] LABS: ABG Oxygen Saturation 96 % (95-98); Blood Gas Modality VC; Blood Gas PEEP 5 cm H2O; Blood Gas VT 550 cc
[2018-10-09] MEDS: Amiodarone Premix 360 MG/200 ML BAG IVC SCH ×2 (10:30→22:17)
[2018-10-09] MEDS: Budesonide/Formoterol 160/4.5 1 PUFF INH IH SCH ×2 (10:49→22:13)
--- NOTE | 2018-10-09 11:41 | Cardiology Progress Note ---
Date of Encounter: 10/09/18 Time of Encounter: 08:30 Assessment and Plan (1) STEMI (ST elevation myocardial infarction) Current Visit: Yes Status: Acute Patient presented to [facility] as witnessed cardiac arrest. ECG found to have STEMI. No prior reported CV history. C 10/07/18: s/p PTCA/CHANA to mLAD TTE 10/07/18: EF 15% with severe global LV systolic dysfunction, moderate to severe LVDD, no LV thrombus, mild biatrial enlargement, mild TR, mild TN S/p therapeutic hypothermia per protocol. continue uninterrupted DAPT. Continue statin. Discussed with Dr. Man, due to patient not taking pills and somewhat confused we will change brilinta to plavix so he has once a day dosing and will not miss medication. Will give loading dose plavix 600 mg x1 and then 75 mg daily. NG being placed by nursing staff to give meds. Continue asa. No ACEi/ARB, bb due to hypotension. NSVT noted 10/08/18, max 11 beats, continue amio gtt. Keep K >4.0, Mg >2.0 Qualifiers: Involved coronary artery: LAD coronary artery Qualified Code(s): I21.02 - ST elevation (STEMI) myocardial infarction involving left anterior descending coronary artery (2) Cardiac arrest Current Visit: Yes Status: Acute Suspected v-fib arrest; s/p mutiple (5+) rounds of CPR. Anterior STEMI on ECG once ROSC achieved. S/p PTCA and CHANA to mLAD. Extubated today. S/p hypothermia protocal. Continues to require pressor support for hypotension. Add bb when able. (3) Atrial fibrillation with RVR Current Visit: Yes Status: Acute Afib with RVR 10/08/18, now NSR. Unclear chronicity. No bb due to hypotension on pressor support. On amiodarone gtt. CHA2Ds Vasc=3 (CAD, CHF, reported hx of HTN) Will need to discuss long-term AC prior to discharge, patient currently not retaining information. Will discuss converting amiodarone once patient is able. (4) Chest pain Current Visit: No Status: Acute Reproducible chest pain after CPR. Continue daily EKG. Qualifiers: Chest pain type: unspecified Qualified Code(s): R07.9 - Chest pain, unspecified Discussion w patient/family: The assessment and plan as outlined above was discussed with the patient and/or family members who expressed understanding and agreement. All questions were answered. Thank you for involving us in the care of your patient. Please call with any questions. Subjective Principal diagnosis: Cardiac arrest Interval history: Mr. Acevedo is now extubated and talking to his family. C/o chest and abdominal soreness. Objective Vital Signs, Last 4 Hours Temp Pulse Resp BP Pulse Ox 10/09/18 11:27 98.6 F 10/09/18 10:49 22 91 10/09/18 10:02 83 33 84/59 93 10/09/18 09:07 81 28 90/73 96 10/09/18 08:51 81 10/09/18 08:05 79 20 76/65 95 10/09/18 07:40 16 General: Conversant, No Apparent Distress HEENT: Atraumatic, Normocephaly, Mucus Membranes Moist Neck: No JVD, Normal carotid pulses Cardiac: Reg Rate and Rhythm, Normal S1 and S2, No Murmur Lungs: Other (Rhonci scattered through out. Respirations easy. ) Neuro: Alert and responsive, No focal deficits noted Abdomen: Soft, Non-Tender Skin: No rashes noted on visualized skin Musculoskeletal: No Chest Wall Tenderness Extremities: Other (1/4 pulses BLE, central line right femoral.) Results 10/09/18 00:00 10/09/18 00:00 Lab Results 10/08/18 10/08/18 10/08/18 12:30 12:30 12:30 WBC 16.0 H Hgb 12.5 L Hct 37.5 Plt Count 189 INR 1.2 APTT 35.5 Sodium 138 Potassium 4.2 Chloride 106 Carbon Dioxide 22 L BUN 17 Creatinine 1.47 H Glucose 161 H Calcium 8.3 L Magnesium 2.4 10/08/18 10/08/18 10/08/18 18:00 18:00 18:00 WBC 17.9 H Hgb 12.6 L Hct 37.7 Plt Count 182 INR 1.2 APTT 33.8 Sodium 139 Potassium 3.9 Chloride 107 Carbon Dioxide 23 BUN 19 Creatinine 1.54 H Glucose 108 H Calcium 8.3 L Magnesium 2.3 10/09/18 10/09/18 10/09/18 00:00 00:00 00:00 WBC 20.5 H Hgb 12.8 L Hct 38.4 Plt Count 184 INR 1.2 APTT 41.6 H Sodium 137 Potassium 4.0 Chloride 104 Carbon Dioxide 21 L BUN 21 H Creatinine 1.68 H Glucose 133 H Calcium 8.4 L Magnesium 2.2 - Imaging and Cardiology Echo: report reviewed Cardiac cath: report reviewed - EKG Interpretation EKG results cardiology: personally reviewed Consult Discharge Plan - Plan Referrals: NONE,PCP [Primary Care Provider] -
[2018-10-09] MEDS ORDERED: Furosemide 20 MG/2 ML VIAL IVP ONE (16:52)
[2018-10-09] MEDS ORDERED: *HR* LORazepam 2 MG/ML VIAL IVP ONE (18:10)
[2018-10-09] MEDS ORDERED: *HR* LORazepam 2 MG/ML VIAL ONE (18:11)
[2018-10-09] MEDS ORDERED: *HR* LORazepam 2 MG/ML VIAL IVP PRN (18:12)
[2018-10-09] MEDS ORDERED: Furosemide 40 MG/4 ML VIAL IVP ONE (19:39)
[2018-10-09] MEDS ORDERED: Morphine Sulfate 2 MG/ML SYRINGE IVP ONE (20:12)
[2018-10-09 20:27] LABS: Basophils % 0.1 %; Hematocrit 33.2 % (37.5-50.1); Hemoglobin 11.4 g/dL (12.9-16.9); Immature Granulocytes % 1.2 % (0-4); Lymphocytes # 0.6 K/mcL (0.6-4.6); Lymphocytes % 3.5 %; Mean Corpuscular HGB Conc 34.3 g/dL (31.6-35.5); Mean Corpuscular Volume 90.2 fL (83.0-100.0); Mean Platelet Volume 11.5 fL (9.4-12.4); Monocytes # 0.7 K/mcL (0.0-1.3); Monocytes % 3.8 %; Neutrophils # 16.5 K/mcL (1.6-8.9); Nucleated Red Blood Cells 0.3 /100 WBC (0); Platelet Count 170 K/mcL (140-400); Red Blood Count 3.68 M/mcL (4.19-5.50); Red Cell Distribution Width 14.4 % (11.5-14.5); Segmented Neutrophils % 91.4 %
[2018-10-09 20:44] LABS: Calcium 8.2 mg/dL (8.6-10.3); Magnesium 1.8 mg/dL (1.6-2.6); Phosphorous 3.5 mg/dL (2.7-4.5); Potassium 3.4 mEq/L (3.5-5.1)
[2018-10-09] MEDS: methylPREDNISolone 125 MG/2 ML VIAL IVP SCH (23:27)
[2018-10-10 03:41] LABS: Basophils % 0.1 %; Hematocrit 34.5 % (37.5-50.1); Hemoglobin 11.8 g/dL (12.9-16.9); Immature Granulocytes % 1.9 % (0-4); Lymphocytes # 0.5 K/mcL (0.6-4.6); Lymphocytes % 3.1 %; Mean Corpuscular HGB Conc 34.2 g/dL (31.6-35.5); Mean Corpuscular Hemoglobin 30.4 pg (28.0-33.3); Mean Corpuscular Volume 88.9 fL (83.0-100.0); Mean Platelet Volume 10.7 fL (9.4-12.4); Monocytes # 0.5 K/mcL (0.0-1.3); Monocytes % 3.3 %; Neutrophils # 14.6 K/mcL (1.6-8.9); Nucleated Red Blood Cells 0.2 /100 WBC (0); Platelet Count 152 K/mcL (140-400); Red Blood Count 3.88 M/mcL (4.19-5.50); Red Cell Distribution Width 14.4 % (11.5-14.5); Segmented Neutrophils % 91.6 %; White Blood Count 15.9 K/mcL (4.3-11.1)
[2018-10-10 04:01] LABS: Calcium 8.2 mg/dL (8.6-10.3); Potassium 3.7 mEq/L (3.5-5.1)
[2018-10-10] MEDS: Ipratropium/Albuterol Neb 3 ML IH SCH ×4 (04:02→21:58)
[2018-10-10 04:35] LABS: ABG Base Excess -4 mEq/L (-2 to 3); ABG HCO3 18 mEq/L (21-27); ABG Oxygen Saturation 99 % (95-98); ABG PCO2 26 mmHg (35-45); ABG PH 7.45 pH Units (7.32-7.45); ABG PO2 126 mmHg (85-104); ABG TCO2 19 mEq/L (20-26)
[2018-10-10] MEDS: Piperacillin/Tazobactam 3.375 GM in 0.9 % Sodium Chloride Mini Bag 100 ML IVPB SCH ×2 (05:09→16:24)
[2018-10-10] MEDS: Insulin LISPRO 300 UNITS/3 ML VIAL SQ SCH ×3 (05:15→18:17)
[2018-10-10] MEDS: Dexmedetomidine HCl 400 MCG/100 ML MLS IVC SCH ×2 (07:22→19:35)
--- NOTE | 2018-10-10 08:12 | Pulmonology Progress Note ---
<Ewa Finley Keyla - Last Filed: 10/10/18 17:02> Date of Encounter: 10/10/18 Time of Encounter: 17:02 Assessment and Plan (1) Cardiopulmonary arrest Current Visit: No Status: Acute Suspected V-fib arrest on 10/07. Had over five rounds of CPR. Anterior STEMI on EKG. -Hypothermia protocol has been completed. -Regained consciousness yesterday with episodes of agitation. -Cardiology is following. -Pressors for hypotension are currently held. -Cardiology plans to add beta justine when possible. (2) Acute respiratory failure with hypoxia Current Visit: Yes Status: Acute Patient was extubated yesterday and tolerated well. Respiratory status worsened last night. -Patient was put on BiPAP and is tolerating this well. -Respiratory rate is 39. -CXR this morning showed stable cardiomediastinal silhouette, patchy airspace opacities R>L possibly due to pulmonary edema vs ARDS vs pneumonia. There was no pleural effusion or pneumothorax. -Patient has received two doses Lasix today -Continue DuoNeb, Symbicort, solu-medrol (3) Hypotension Current Visit: Yes Status: Acute This is secondary to cardiac arrest. Patient has left femoral line. -Currently on Levophed but attempting to wean off, titrate to MAP >65 or systolic >90 -Continue to monitor blood pressure -Family have come in from [place] and would like for him to be transferred to [place] so that he can be nearer to them; current plan is for transfer tomorrow. -Suspect he is homeless. Qualifiers: Hypotension type: other hypotension type Qualified Code(s): I95.89 - Other hypotension (4) STEMI (ST elevation myocardial infarction) Current Visit: Yes Status: Acute ECG on 10/07 showed anterior STEMI. Had PCI on same day EF on Echocardiogram showed LVEF of 15% with severe global LV systolic dysfunction, moderate to severe LVDD, mild biatrial enlargement, mild TR, mild [place] Has had hypotension during stay -Cardiology recommends no ACEI, ARB, or BB because of hypotension. -Currently on norepinephrine for hypotension -Continue ASA -Brilinta has been changed to Plavix so there can be once a day dosing. Qualifiers: Involved coronary artery: LAD coronary artery Qualified Code(s): I21.02 - ST elevation (STEMI) myocardial infarction involving left anterior descending coronary artery Subjective Principal diagnosis: Cardiac arrest Interval history: Yesterday evening, patient became very agitated and required PRN Ativan. Respiratory status worsened and patient is now on BiPAP. Objective PUL Vital signs: Last Vital Signs Temp 97.4 F L 10/10/18 07:32 Pulse 75 10/10/18 08:00 Resp 22 10/10/18 08:00 BP 98/82 10/10/18 08:00 Pulse Ox 99 10/10/18 08:00 GENERAL: alert, easily roused though somewhat confused NEUROLOGICAL: RASS -1 - woke easily with voice and remained awake through conversation. Oriented to name. Did not assess knowledge of place though he expressed surprise that he was in hospital. Believed current year is 2000. Month is August. Current president is [place]. SKIN: some scaling on legs. Cool. EYES: icteric, pupils equal and reactive to light ENT: moist mucosa, tongue reddened. Nasal cannula in place. CV: RRR, no murmurs, clicks, or gallops RESPIRATORY: diffuse wheezing present bilaterally. No rhonchi or rales GI: soft, nondistended, nontender. Bowel sounds not heard EXTREMITIES: Dorsalis pedis pulses today 1/4 bilaterally. Mild nonpitting edema present in bilateral lower extremities : urine today is still somewhat red, though less so since yesterday Results - Laboratory Findings CBC and BMP: 10/10/18 13:05 10/10/18 13:05 ABG ABG pH 7.45 pH Units (7.32-7.45) 10/10/18 04:32 ABG pCO2 26 mmHg (35-45) L 10/10/18 04:32 ABG pO2 126 mmHg (85-104) H 10/10/18 04:32 ABG O2 Saturation 99 % (95-98) H 10/10/18 04:32 PT/INR, D-dimer PT 13.7 Seconds (9.4-12.1) H 10/09/18 00:00 Abnormal lab findings: Abnormal lab results WBC 15.9 K/mcL (4.3-11.1) H 10/10/18 03:35 RBC 3.88 M/mcL (4.19-5.50) L 10/10/18 03:35 Hgb 11.8 g/dL (12.9-16.9) L 10/10/18 03:35 Hct 34.5 % (37.5-50.1) L 10/10/18 03:35 MCHC 31.4 g/dL (31.6-35.5) L 10/07/18 13:28 RDW 14.7 % (11.5-14.5) H 10/08/18 07:02 Neutrophils # 14.6 K/mcL (1.6-8.9) H 10/10/18 03:35 Lymphocytes # 0.5 K/mcL (0.6-4.6) L 10/10/18 03:35 Monocytes # 1.4 K/mcL (0.0-1.3) H 10/07/18 18:41 Nucleated RBCs/100 WBC 0.2 /100 WBC (0) H 10/10/18 03:35 PT 13.7 Seconds (9.4-12.1) H 10/09/18 00:00 APTT 41.6 Seconds (26.0-36.0) H 10/09/18 00:00 ABG pH 7.28 pH Units (7.32-7.45) L 10/07/18 20:00 ABG pCO2 26 mmHg (35-45) L 10/10/18 04:32 ABG pO2 126 mmHg (85-104) H 10/10/18 04:32 ABG HCO3 18 mEq/L (21-27) L 10/10/18 04:32 ABG Total CO2 19 mEq/L (20-26) L 10/10/18 04:32 ABG O2 Saturation 99 % (95-98) H 10/10/18 04:32 ABG Base Excess -4 mEq/L (-2 to 3) L 10/10/18 04:32 Potassium 3.4 mEq/L (3.5-5.1) L 10/09/18 20:05 Carbon Dioxide 20 mEq/L (23-29) L 10/10/18 03:35 BUN 27 mg/dL (6-20) H 10/10/18 03:35 Creatinine 1.74 mg/dL (0.70-1.30) H 10/10/18 03:35 Est GFR ( Amer) 50 (> 60) L 10/10/18 03:35 Est GFR (Non-Af Amer) 41 (> 60) L 10/10/18 03:35 Glucose 164 mg/dL (70-105) H 10/10/18 03:35 POC Glucose 138 mg/dL (70-99) H 10/09/18 23:11 Calculated Osmolality 301 (280-300) H 10/08/18 07:02 Lactic Acid 3.3 mmol/L (0.5-2.2) H 10/09/18 20:05 Calcium 8.2 mg/dL (8.6-10.3) L 10/10/18 03:35 Phosphorus 4.9 mg/dL (2.7-4.5) H 10/09/18 00:00 Total Bilirubin 2.1 mg/dL (0.3-1.0) H 10/07/18 13:28 AST 229 Units/L (13-39) H 10/07/18 13:28 ALT 64 Units/L (7-52) H 10/07/18 13:28 B-Natriuretic Peptide 1124 pg/mL (Less than 100) H 10/09/18 20:05 Serum Total Protein 5.9 g/dL (6.4-8.9) L 10/07/18 13:28 Urine Color Red (Yellow) A 10/08/18 14:26 Urine Clarity Turbid (Clear) A 10/08/18 14:26 Ur Specific [place] > 1.030 (1.010-1.025) H 10/08/18 14:26 Urine Protein 100 mg/dL (Neg-Trace) H 10/08/18 14:26 Urine Ketones 15 mg/dL (Negative) H 10/08/18 14:26 Urine Blood Large (Negative) H 10/08/18 14:26 Urine Nitrite Positive (Negative) A 10/08/18 14:26 Urine Bilirubin Moderate (Negative) H 10/08/18 14:26 Ur Leukocyte Esterase Moderate (Negative) H 10/08/18 14:26 Urine Microscopic RBC TNTC per hpf (0-3) H 10/08/18 14:26 Urine Microscopic WBC 50-100 per hpf (0-3) H 10/08/18 14:26 Ur Squamous Epith Cells Many per lpf (None-Few) H 10/08/18 14:26 Granular Casts Few per lpf (None Seen) H 10/08/18 14:26 Ur Culture Indicated? YES (NO) A 10/08/18 14:26 - Microbiology Findings Microbiology Findings: Microbiology, Last 48 Hours 10/08/18 13:41 Sputum Culture - Preliminary Sputum 10/08/18 14:26 Urine Culture - Final Urine,Clean Catch No growth. 10/08/18 14:26 Legionella Antigen - Final Urine,Clean Catch Streptococcus pneumoniae Antigen (M - Final - Clinical Findings Intake & Output: Intake & Output 10/09/18 10/10/18 10/10/18 23:59 07:59 15:59 Intake Total 670 / 1832 223 / 223 Output Total 1475 / 1730 500 / 500 Balance -805 / 102 -277 / -277 Weight 43.1 kg Consult Discharge Plan - Plan Referrals: NONE,PCP [Primary Care Provider] - <Scott Bonilla - Last Filed: 10/10/18 21:44> Date of Encounter: 10/10/18 Assessment and Plan (1) Cardiac arrest Current Visit: Yes Status: Acute (2) Acute respiratory failure with hypoxia Current Visit: Yes Status: Acute Objective PUL Vital signs: Last Vital Signs Temp 97.5 F L 10/10/18 20:32 Pulse 72 10/10/18 21:00 Resp 28 10/10/18 21:00 BP 91/79 10/10/18 21:00 Pulse Ox 100 10/10/18 21:00 Results - Laboratory Findings CBC and BMP: 10/10/18 13:05 10/10/18 13:05 ABG ABG pH 7.45 pH Units (7.32-7.45) 10/10/18 04:32 ABG pCO2 26 mmHg (35-45) L 10/10/18 04:32 ABG pO2 126 mmHg (85-104) H 10/10/18 04:32 ABG O2 Saturation 99 % (95-98) H 10/10/18 04:32 PT/INR, D-dimer PT 14.5 Seconds (9.4-12.1) H 10/10/18 10:09 Abnormal lab findings: Abnormal lab results WBC 16.7 K/mcL (4.3-11.1) H 10/10/18 13:05 RBC 3.77 M/mcL (4.19-5.50) L 10/10/18 13:05 Hgb 11.5 g/dL (12.9-16.9) L 10/10/18 13:05 Hct 33.5 % (37.5-50.1) L 10/10/18 13:05 MCHC 31.4 g/dL (31.6-35.5) L 10/07/18 13:28 RDW 14.7 % (11.5-14.5) H 10/08/18 07:02 Neutrophils # 15.4 K/mcL (1.6-8.9) H 10/10/18 13:05 Lymphocytes # 0.4 K/mcL (0.6-4.6) L 10/10/18 13:05 Monocytes # 1.4 K/mcL (0.0-1.3) H 10/07/18 18:41 Nucleated RBCs/100 WBC 0.1 /100 WBC (0) H 10/10/18 13:05 PT 14.5 Seconds (9.4-12.1) H 10/10/18 10:09 APTT 41.6 Seconds (26.0-36.0) H 10/09/18 00:00 Heparin Anti-Xa, Unfract 0.07 IU/mL (0.30-0.70) L 10/10/18 10:09 ABG pH 7.28 pH Units (7.32-7.45) L 10/07/18 20:00 ABG pCO2 26 mmHg (35-45) L 10/10/18 04:32 ABG pO2 126 mmHg (85-104) H 10/10/18 04:32 ABG HCO3 18 mEq/L (21-27) L 10/10/18 04:32 ABG Total CO2 19 mEq/L (20-26) L 10/10/18 04:32 ABG O2 Saturation 99 % (95-98) H 10/10/18 04:32 ABG Base Excess -4 mEq/L (-2 to 3) L 10/10/18 04:32 Potassium 3.3 mEq/L (3.5-5.1) L 10/10/18 13:05 Chloride 108 mEq/L (98-107) H 10/10/18 13:05 Carbon Dioxide 20 mEq/L (23-29) L 10/10/18 03:35 BUN 27 mg/dL (6-20) H 10/10/18 13:05 Creatinine 1.59 mg/dL (0.70-1.30) H 10/10/18 13:05 Est GFR ( Amer) 55 (> 60) L 10/10/18 13:05 Est GFR (Non-Af Amer) 46 (> 60) L 10/10/18 13:05 Glucose 167 mg/dL (70-105) H 10/10/18 13:05 POC Glucose 138 mg/dL (70-99) H 10/09/18 23:11 Calculated Osmolality 301 (280-300) H 10/10/18 13:05 Lactic Acid 3.3 mmol/L (0.5-2.2) H 10/09/18 20:05 Calcium 8.4 mg/dL (8.6-10.3) L 10/10/18 13:05 Venous Ioniz Calcium 1.09 mmol/L (1.15-1.35) L 10/10/18 18:44 Phosphorus 4.9 mg/dL (2.7-4.5) H 10/09/18 00:00 Total Bilirubin 2.1 mg/dL (0.3-1.0) H 10/07/18 13:28 AST 229 Units/L (13-39) H 10/07/18 13:28 ALT 64 Units/L (7-52) H 10/07/18 13:28 B-Natriuretic Peptide 1124 pg/mL (Less than 100) H 10/09/18 20:05 Serum Total Protein 5.9 g/dL (6.4-8.9) L 10/07/18 13:28 Urine Color Red (Yellow) A 10/08/18 14:26 Urine Clarity Turbid (Clear) A 10/08/18 14:26 Ur Specific [place] > 1.030 (1.010-1.025) H 10/08/18 14:26 Urine Protein 100 mg/dL (Neg-Trace) H 10/08/18 14:26 Urine Ketones 15 mg/dL (Negative) H 10/08/18 14:26 Urine Blood Large (Negative) H 10/08/18 14:26 Urine Nitrite Positive (Negative) A 10/08/18 14:26 Urine Bilirubin Moderate (Negative) H 10/08/18 14:26 Ur Leukocyte Esterase Moderate (Negative) H 10/08/18 14:26 Urine Microscopic RBC TNTC per hpf (0-3) H 10/08/18 14:26 Urine Microscopic WBC 50-100 per hpf (0-3) H 10/08/18 14:26 Ur Squamous Epith Cells Many per lpf (None-Few) H 10/08/18 14:26 Granular Casts Few per lpf (None Seen) H 10/08/18 14:26 Ur Culture Indicated? YES (NO) A 10/08/18 14:26 - Microbiology Findings Microbiology Findings: Microbiology, Last 48 Hours 10/08/18 13:41 Sputum Culture - Preliminary Sputum 10/08/18 14:26 Urine Culture - Final Urine,Clean Catch No growth. - Clinical Findings Intake & Output: Intake & Output 10/10/18 10/10/18 10/10/18 07:59 15:59 23:59 Intake Total 223 / 1068 445 / 1068 400 / 1068 Output Total 500 / 1500 400 / 1500 600 / 1500 Balance -277 / -432 45 / -432 -200 / -432 Weight 43.1 kg - Attending Attestation I examined this patient and my medical decision-making was reviewed with the Resident Physician. I agree with the documented findings, disposition and treatment plan as described except to the extent set forth below. Patient seen and examined. Labs, radiology, chart personally reviewed. Agree with resident's history and physical, assessment, plan with following comments: FACTORER: Patient follows commands, Pulmonary: Acceptable oxygenation and ventilation and will treat as AECOPD with adding inhalers and systemic steroid and continue diuresis. Pt will benefit from NIV and he is responding to treatment. He is at risk that his condition could deteriorate and with underlying COPD and pulm edema, he could end up with invasive mechanical ventilation. Cardiovascular: Patient remain in shock, which is cardiogenic in nature. S/P cardiac arrest and ischemic cardiomyopathy. Appreciate detasseler help and started Lasix to help his pulm system. Wean off Levophed as tolerated and started electrolytes protocol and need to make sure his potassium level is normal because of arrythmias. There is some improvement, however he remain sick and still need hospitalization. GI: Nutrition per dietary and GI prophylaxis per routine. Still need to be checked for swallowing before resuming diet Heme: DVT prophylaxis per routine ID: Continue antibiotics and plan to de-escalation Renal; urine out put and renal function reviewed Endorcine: blood glucose is monitored Lines: all lines checked and no evidence of infections Skin: skin care to prevent pressure ulcers per nursing routine care Dispo:ICU and family is requesting to transfer patient to [place]. probation worker needs to help. Code: Full. Prognosis. Fair for now, but overall is poor if no improvement in cardiac function. I spent 32 min of Critical Care time with this patient. It involved decision making of high complexity to assess, manipulate, and support vital organ system failure and/or to prevent further life threatening deterioration of the patient's condition. The time involved in the performance of separately reportable procedures was not counted toward critical care time.
[2018-10-10] MEDS: *HR* Heparin 5,000 UNIT/ML VIAL SQ SCH (08:24)
[2018-10-10] MEDS: methylPREDNISolone 125 MG/2 ML VIAL IVP SCH ×2 (08:24→16:24)
[2018-10-10] MEDS: Pantoprazole 40 MG VIAL IVP SCH (08:24)
[2018-10-10] MEDS: Furosemide 20 MG/2 ML VIAL IVP SCH ×2 (08:24→16:24)
--- NOTE | 2018-10-10 08:35 | Cardiology Progress Note ---
Date of Encounter: 10/10/18 Time of Encounter: 08:00 Assessment and Plan (1) STEMI (ST elevation myocardial infarction) Current Visit: Yes Status: Acute Patient presented [facility] as witnessed cardiac arrest. ECG found to have STEMI. No prior reported CV history. C 10/07/18: s/p PTCA/CHANA to mLAD TTE 10/07/18: EF 15% with severe global LV systolic dysfunction, moderate to severe LVDD, no LV thrombus, mild biatrial enlargement, mild TR, mild [place] S/p therapeutic hypothermia per protocol. Continue uninterrupted DAPT. Continue statin. Brilinta changed to plavix yesterday due to patient having difficulty taking meds. Once a day dosing recommended. No ACEi/ARB, bb due to hypotension. On norepinephrine for hypotension. NSVT noted 10/08/18, max 11 beats, continue amio gtt. Keep K >4.0, Mg >2.0. No recurrent NSVT seen. Qualifiers: Involved coronary artery: LAD coronary artery Qualified Code(s): I21.02 - ST elevation (STEMI) myocardial infarction involving left anterior descending coronary artery (2) Cardiac arrest Current Visit: Yes Status: Acute Suspected v-fib arrest; s/p mutiple (5+) rounds of CPR. Anterior STEMI on ECG once ROSC achieved. S/p PTCA and CHANA to mLAD. Extubated 10/09/18, currently on bipap. [employer] following. S/p hypothermia protocal. Continues to require pressor support for hypotension. Add bb when able. (3) Atrial fibrillation with RVR Current Visit: Yes Status: Acute Afib with RVR 10/08/18, now NSR. Unclear chronicity. No bb due to hypotension on pressor support-currently being weaned off. On amiod arone gtt, will convert to oral when taking oral. Swallow evaluation today. rate controlled afib seen this am. Now NSR. CHA2Ds Vasc=3 (CAD, CHF, reported hx of HTN) Will need to discuss long-term AC prior to discharge, patient currently not retaining information. WIll start heparin gtt. Yesterday some hematuria noted now resolved Hgb stable. (4) Chest pain Current Visit: No Status: Acute Reproducible chest pain after CPR. Continue daily EKG. Qualifiers: Chest pain type: unspecified Qualified Code(s): R07.9 - Chest pain, unspecified Discussion w patient/family: The assessment and plan as outlined above was discussed with the patient and/or family members who expressed understanding and agreement. All questions were answered. Thank you for involving us in the care of your patient. Please call with any questions. Subjective Principal diagnosis: Cardiac arrest Interval history: Mr. Acevedo is on bipap with mild confusion. Swallow eval pending. Objective Vital Signs, Last 4 Hours Temp Pulse Resp BP Pulse Ox 10/10/18 08:00 73 22 98/82 99 10/10/18 07:32 97.4 F L 10/10/18 07:00 74 22 97/80 99 10/10/18 06:00 79 22 107/86 99 10/10/18 05:00 79 35 99/79 99 General: Conversant, No Apparent Distress, Other (confused) HEENT: Atraumatic, Normocephaly, Mucus Membranes Moist Neck: No JVD, Normal carotid pulses Cardiac: Reg Rate and Rhythm, Normal S1 and S2, No Murmur Lungs: Other (Rhonci throughout. ) Neuro: Alert and responsive, No focal deficits noted, Other (genralized weakness, confusion) Abdomen: Soft, Non-Tender Skin: No rashes noted on visualized skin Musculoskeletal: No Chest Wall Tenderness Extremities: No Clubbing, No Cyanosis, No Edema, Normal Pulses Results 10/10/18 03:35 10/10/18 03:35 Lab Results 10/09/18 10/09/18 10/09/18 20:05 20:05 20:05 WBC 18.0 H Hgb 11.4 L Hct 33.2 L Plt Count 170 Sodium 137 Potassium 3.4 L Chloride 107 Carbon Dioxide 18 L BUN 28 H Creatinine 1.83 H Glucose 130 H Calcium 8.2 L Magnesium 1.8 B-Natriuretic Peptide 1124 H 10/10/18 10/10/18 03:35 03:35 WBC 15.9 H Hgb 11.8 L Hct 34.5 L Plt Count 152 Sodium 139 Potassium 3.7 Chloride 106 Carbon Dioxide 20 L BUN 27 H Creatinine 1.74 H Glucose 164 H Calcium 8.2 L Magnesium B-Natriuretic Peptide - Imaging and Cardiology Echo: report reviewed Cardiac cath: report reviewed - EKG Interpretation EKG results cardiology: personally reviewed Consult Discharge Plan - Plan Referrals: NONE,PCP [Primary Care Provider] -
[2018-10-10] MEDS: Aspirin 81 MG TAB.CHEW PO SCH (09:02)
[2018-10-10] MEDS: Amiodarone Premix 360 MG/200 ML BAG IVC SCH ×2 (09:15→21:10)
[2018-10-10] MEDS: Budesonide/Formoterol 160/4.5 1 PUFF INH IH SCH ×2 (09:49→21:59)
[2018-10-10] MEDS ORDERED: *HR* Heparin 5,000 UNIT/ML VIAL IVP PRN ×2 (10:09)
[2018-10-10] MEDS ORDERED: *HR* Heparin 5,000 UNIT/ML VIAL IVP ONE (10:09)
[2018-10-10] MEDS ORDERED: Dextrose Gel 15 GM/37.5 ML TUBE PO PRN ×2 (11:33)
[2018-10-10] MEDS ORDERED: *HR* Dextrose 50 % in Water (Syg) 50 ML SYRINGE IVP PRN (11:33)
[2018-10-10] MEDS ORDERED: D5% in Water 1,000 ML IVC PRN (11:33)
[2018-10-10] MEDS ORDERED: E-Z-PAQUE (BARIUM SULF) SUSP 1 BOTTLE PO ONE (12:35)
[2018-10-10] MEDS ORDERED: E-Z-HD (BARIUM SULF) SUSPENSION PO ONE (12:35)
[2018-10-10 13:23] LABS: Basophils % 0.1 %; Hematocrit 33.5 % (37.5-50.1); Hemoglobin 11.5 g/dL (12.9-16.9); Immature Granulocytes % 2.2 % (0-4); Lymphocytes # 0.4 K/mcL (0.6-4.6); Lymphocytes % 2.6 %; Mean Corpuscular HGB Conc 34.3 g/dL (31.6-35.5); Mean Corpuscular Hemoglobin 30.5 pg (28.0-33.3); Mean Corpuscular Volume 88.9 fL (83.0-100.0); Mean Platelet Volume 11.7 fL (9.4-12.4); Monocytes # 0.5 K/mcL (0.0-1.3); Monocytes % 2.8 %; Neutrophils # 15.4 K/mcL (1.6-8.9); Nucleated Red Blood Cells 0.1 /100 WBC (0); Platelet Count 152 K/mcL (140-400); Red Blood Count 3.77 M/mcL (4.19-5.50); Red Cell Distribution Width 14.3 % (11.5-14.5); Segmented Neutrophils % 92.3 %; White Blood Count 16.7 K/mcL (4.3-11.1)
[2018-10-10 13:49] LABS: Calcium 8.4 mg/dL (8.6-10.3); Potassium 3.3 mEq/L (3.5-5.1)
[2018-10-10 14:21] LABS: INR 1.3; Prothrombin Time 14.5 Seconds (9.4-12.1)
[2018-10-10 14:35] LABS: Magnesium 2.1 mg/dL (1.6-2.6)
--- NOTE | 2018-10-10 14:44 | Electrocardiograph Report ---
[address] [place], [place] [address] Test Date: 2018-10-09 Pat Name: Vikas Acevedo Department: 109 Room: [facility] Gender: M Clinical Program Director: : [id number] Requested By: Scott Bonilla Order Number: [id number] Reading MD: Radha Mcghee Measurements Intervals [place] Rate: 91 P: 52 MD: 170 QRS: 4 QRSD: 85 T: 76 QT: 356 QTc: 405 Interpretive Statements SINUS RHYTHM WITH OCCASIONAL VENTRICULAR PREMATURE COMPLEXES POSSIBLE LEFT ATRIAL ENLARGEMENT LOW QRS VOLTAGE IN EXTREMITY LEADS Electronically Signed On 10-10-2018 14:43:02 EDT by Radah Mcghee
[2018-10-10] MEDS: Heparin 25,000 UNIT/250 ML D5W 25,000 UNIT/250 ML IV.SOLN IVC SCH (14:59)
[2018-10-10 18:47] LABS: VBG Ionized Calcium 1.09 mmol/L (1.15-1.35)
[2018-10-11] MEDS: methylPREDNISolone 125 MG/2 ML VIAL IVP SCH ×2 (00:05→08:40)
[2018-10-11] MEDS: Insulin LISPRO 300 UNITS/3 ML VIAL SQ SCH ×4 (00:06→21:04)
[2018-10-11] MEDS: Dexmedetomidine HCl 400 MCG/100 ML MLS IVC SCH (03:31)
[2018-10-11] MEDS: Ipratropium/Albuterol Neb 3 ML IH SCH ×4 (04:16→22:21)
[2018-10-11 04:54] LABS: Basophils % 0.1 %; Hematocrit 33.2 % (37.5-50.1); Hemoglobin 11.4 g/dL (12.9-16.9); Immature Granulocytes % 1.8 % (0-4); Lymphocytes # 0.8 K/mcL (0.6-4.6); Lymphocytes % 4.3 %; Mean Corpuscular HGB Conc 34.3 g/dL (31.6-35.5); Mean Corpuscular Hemoglobin 30.6 pg (28.0-33.3); Monocytes # 0.9 K/mcL (0.0-1.3); Monocytes % 5.1 %; Neutrophils # 15.9 K/mcL (1.6-8.9); Nucleated Red Blood Cells 0.2 /100 WBC (0); Platelet Count 151 K/mcL (140-400); Red Blood Count 3.73 M/mcL (4.19-5.50); Red Cell Distribution Width 14.7 % (11.5-14.5); Segmented Neutrophils % 88.7 %; White Blood Count 17.9 K/mcL (4.3-11.1)
[2018-10-11 05:14] LABS: BUN/Creatinine Ratio 20 (6-26); Blood Urea Nitrogen 29 mg/dL (6-20); Calcium 8.7 mg/dL (8.6-10.3); Carbon Dioxide 25 mEq/L (23-29); Chloride 106 mEq/L (98-107); Glucose 160 mg/dL (70-105); Osmolality,Calculated 307 (280-300); Potassium 3.6 mEq/L (3.5-5.1); Sodium 144 mEq/L (136-145); eGFR For African Americans > 60 (> 60); eGFR For Non-African Americans 51 (> 60)
[2018-10-11] MEDS: Piperacillin/Tazobactam 3.375 GM in 0.9 % Sodium Chloride Mini Bag 100 ML IVPB SCH ×4 (06:07→20:58)
[2018-10-11] MEDS ORDERED: *HR* Heparin 5,000 UNIT/ML VIAL IVP PRN ×4 (06:15→12:52)
[2018-10-11] MEDS: Furosemide 20 MG/2 ML VIAL IVP SCH ×2 (08:40→18:05)
[2018-10-11] MEDS: Aspirin 81 MG TAB.CHEW PO SCH (08:40)
[2018-10-11] MEDS: Pantoprazole 40 MG VIAL IVP SCH (08:41)
[2018-10-11] MEDS ORDERED: Nystatin SUSP 5 ML UD.LIQ PO SCH (09:00)
--- NOTE | 2018-10-11 09:42 | Pulmonology Progress Note ---
<Ewa Finley Keyla - Last Filed: 10/11/18 10:33> Date of Encounter: 10/11/18 Time of Encounter: 09:11 Assessment and Plan (1) Cardiopulmonary arrest Current Visit: No Status: Acute Suspected V-fib arrest on 10/07. Had over five rounds of CPR. Anterior STEMI on EKG. -Hypothermia protocol has been completed. -Regained consciousness two days ago with episodes of agitation. -Cardiology is following. -Pressors for hypotension are currently held. -Cardiology plans to add beta justine when possible. (2) Acute respiratory failure with hypoxia Current Visit: Yes Status: Acute Patient was extubated yesterday and tolerated well. Respiratory status worsened last night. -Patient is on 4L by ID and is tolerating this well. -Respiratory rate is 29. -CXR yesterday showed stable cardiomediastinal silhouette, patchy airspace opacities R>L possibly due to pulmonary edema vs ARDS vs pneumonia. There was no pleural effusion or pneumothorax. No new imaging today. -Patient has received two doses Lasix today -Continue DuoNeb, Symbicort, solu-medrol -Continue Zosyn. (3) Hypotension Current Visit: Yes Status: Acute This is secondary to cardiac arrest. Patient has left femoral line. -Currently on Levophed but attempting to wean off, titrate to MAP >65 or systolic >90 -Continue to monitor blood pressure -Family have come in from [place] and would like for him to be transferred to [place] so that he can be nearer to them; insurance is [place] Medicaid so transfer is problematic. -Transferring to for now. -Suspect he is homeless. Qualifiers: Hypotension type: other hypotension type Qualified Code(s): I95.89 - Other hypotension (4) STEMI (ST elevation myocardial infarction) Current Visit: Yes Status: Acute ECG on 10/07 showed anterior STEMI. Had PCI on same day EF on Echocardiogram showed LVEF of 15% with severe global LV systolic dysfunction, moderate to severe LVDD, mild biatrial enlargement, mild TR, mild VA Has had hypotension during stay -Cardiology recommends no ACEI, ARB, or BB because of hypotension. -Amiodarone is now PO. -Continue ASA -Brilinta has been changed to Plavix so there can be once a day dosing. Qualifiers: Involved coronary artery: LAD coronary artery Qualified Code(s): I21.02 - ST elevation (STEMI) myocardial infarction involving left anterior descending coronary artery (5) Candidiasis of mouth Current Visit: Yes Status: Acute On physical examination today, whitish crust was noted on tongue. -Have started patient on Nystatin suspension. -Continue to monitor for improvement of thrush Subjective Principal diagnosis: Cardiac arrest Interval history: Vikas Acevedo is a 53-year-old male with PMH RA, asthma, glaucoma, HLD, HTN, IV drug use who presented from [place] ED. He first came to [facility]'s office with chest pain on 10/07. EMS was called and then he collapsed. He was found to be in Vfib and had multiple rounds CPR, multiple defibrillations, plus magnesium and amiodarone. ROSC was obtained at [place] where an anterior STEMI was diagnosed, tr ansferred to [facility] and he went to laboratory operations coordinator for PCI, then ICU. During this time, there was posturing and no purposeful movements. He finished hypothermia protocol. He had periods of Afib RVR, and was found to have severe LV dysfunction with EF of 15%. He was extubated on 10/08 and was alert and somewhat oriented but became very agitated and required PRN Ativan. Respiratory status worsened and patient was put on BiPAP. Today, patient is on NC and answering questions. We are clearing him for stepdow n to Telemetry unit. We are waiting for some clarification from Cardiology regarding amiodarone and heparin. It may be difficult to transfer him to [place] as family has hoped, due to insurance issues. Objective PUL Vital signs: Last Vital Signs Temp 97.4 F L 10/11/18 07:10 Pulse 70 10/11/18 06:00 Resp 27 10/11/18 06:00 BP 93/68 10/11/18 06:00 Pulse Ox 94 10/11/18 06:00 GENERAL: awake, still somewhat confused, pleasan RASS: 0 NEUROLOGICAL: no focal deficits noted. Patient knows his name but thought he might be in a library. Current time for him continues to be August, but he now reports that the year is 1996. Patient shows issues with recent memories and expressed surprise that his family had visited him and that he was in a hospital. Yesterday, we discussed how his family had been visiting him and that he was in the hospital. SKIN: no rashes or lesions noted EYES: icteric, signs of glaucoma, pupils equal and reactive to light ENT: a thick yellowish-white crust was on tongue today CV: regular rate and rhythm, no murmurs, clicks or gallops RESPIRATORY: diffuse wheezing noted. No rhonchi or rales. GI: soft, nontender, nondistended. Quiet bowel sounds. EXTREMITIES: dorsalis pedis pulses 1/4 bilaterally, no edema or cyanosis. Results - Laboratory Findings CBC and BMP: 10/11/18 04:40 10/11/18 04:40 ABG ABG pH 7.45 pH Units (7.32-7.45) 10/10/18 04:32 ABG pCO2 26 mmHg (35-45) L 10/10/18 04:32 ABG pO2 126 mmHg (85-104) H 10/10/18 04:32 ABG O2 Saturation 99 % (95-98) H 10/10/18 04:32 PT/INR, D-dimer PT 14.5 Seconds (9.4-12.1) H 10/10/18 10:09 Abnormal lab findings: Abnormal lab results WBC 17.9 K/mcL (4.3-11.1) H 10/11/18 04:40 RBC 3.73 M/mcL (4.19-5.50) L 10/11/18 04:40 Hgb 11.4 g/dL (12.9-16.9) L 10/11/18 04:40 Hct 33.2 % (37.5-50.1) L 10/11/18 04:40 MCHC 31.4 g/dL (31.6-35.5) L 10/07/18 13:28 RDW 14.7 % (11.5-14.5) H 10/11/18 04:40 Neutrophils # 15.9 K/mcL (1.6-8.9) H 10/11/18 04:40 Lymphocytes # 0.4 K/mcL (0.6-4.6) L 10/10/18 13:05 Monocytes # 1.4 K/mcL (0.0-1.3) H 10/07/18 18:41 Nucleated RBCs/100 WBC 0.2 /100 WBC (0) H 10/11/18 04:40 PT 14.5 Seconds (9.4-12.1) H 10/10/18 10:09 APTT 41.6 Seconds (26.0-36.0) H 10/09/18 00:00 Heparin Anti-Xa, Unfract 0.18 IU/mL (0.30-0.70) L 10/11/18 04:40 ABG pH 7.28 pH Units (7.32-7.45) L 10/07/18 20:00 ABG pCO2 26 mmHg (35-45) L 10/10/18 04:32 ABG pO2 126 mmHg (85-104) H 10/10/18 04:32 ABG HCO3 18 mEq/L (21-27) L 10/10/18 04:32 ABG Total CO2 19 mEq/L (20-26) L 10/10/18 04:32 ABG O2 Saturation 99 % (95-98) H 10/10/18 04:32 ABG Base Excess -4 mEq/L (-2 to 3) L 10/10/18 04:32 Potassium 3.3 mEq/L (3.5-5.1) L 10/10/18 13:05 Chloride 108 mEq/L (98-107) H 10/10/18 13:05 Carbon Dioxide 20 mEq/L (23-29) L 10/10/18 03:35 BUN 29 mg/dL (6-20) H 10/11/18 04:40 Creatinine 1.44 mg/dL (0.70-1.30) H 10/11/18 04:40 Est GFR ( Amer) 55 (> 60) L 10/10/18 13:05 Est GFR (Non-Af Amer) 51 (> 60) L 10/11/18 04:40 Glucose 160 mg/dL (70-105) H 10/11/18 04:40 POC Glucose 185 mg/dL (70-99) H 10/10/18 23:33 Calculated Osmolality 307 (280-300) H 10/11/18 04:40 Lactic Acid 3.3 mmol/L (0.5-2.2) H 10/09/18 20:05 Calcium 8.4 mg/dL (8.6-10.3) L 10/10/18 13:05 Venous Ioniz Calcium 1.09 mmol/L (1.15-1.35) L 10/10/18 18:44 Phosphorus 4.9 mg/dL (2.7-4.5) H 10/09/18 00:00 Total Bilirubin 2.1 mg/dL (0.3-1.0) H 10/07/18 13:28 AST 229 Units/L (13-39) H 10/07/18 13:28 ALT 64 Units/L (7-52) H 10/07/18 13:28 B-Natriuretic Peptide 1124 pg/mL (Less than 100) H 10/09/18 20:05 Serum Total Protein 5.9 g/dL (6.4-8.9) L 10/07/18 13:28 Urine Color Red (Yellow) A 10/08/18 14:26 Urine Clarity Turbid (Clear) A 10/08/18 14:26 Ur Specific [place] > 1.030 (1.010-1.025) H 10/08/18 14:26 Urine Protein 100 mg/dL (Neg-Trace) H 10/08/18 14:26 Urine Ketones 15 mg/dL (Negative) H 10/08/18 14:26 Urine Blood Large (Negative) H 10/08/18 14:26 Urine Nitrite Positive (Negative) A 10/08/18 14:26 Urine Bilirubin Moderate (Negative) H 10/08/18 14:26 Ur Leukocyte Esterase Moderate (Negative) H 10/08/18 14:26 Urine Microscopic RBC TNTC per hpf (0-3) H 10/08/18 14:26 Urine Microscopic WBC 50-100 per hpf (0-3) H 10/08/18 14:26 Ur Squamous Epith Cells Many per lpf (None-Few) H 10/08/18 14:26 Granular Casts Few per lpf (None Seen) H 10/08/18 14:26 Ur Culture Indicated? YES (NO) A 10/08/18 14:26 - Microbiology Findings Microbiology Findings: Microbiology, Last 48 Hours 10/08/18 13:41 Sputum Culture - Preliminary Sputum 10/08/18 14:26 Urine Culture - Final Urine,Clean Catch No growth. - Clinical Findings Intake & Output: Intake & Output 10/10/18 10/11/18 10/11/18 23:59 07:59 15:59 Intake Total 450 / 1118 368 / 368 Output Total 600 / 1500 350 / 350 Balance -150 / -382 18 / 18 Weight 61.9 kg Consult Discharge Plan - Plan Referrals: Bailee Mccain CNP [Advanced Practice Nurse] - 10/22/18 12:45 pm Luis Alberto Lucero CNP [Advanced Practice Nurse] - (Per the Office they will call the patient at home with a follow up appointment) Prescriptions: Rivaroxaban [Xarelto] 20 mg PO DAILY #30 tablet <Scott Bonilla - Last Filed: 10/13/18 10:48> Date of Encounter: 10/11/18 Assessment and Plan (1) Cardiac arrest Current Visit: Yes Status: Acute (2) Acute respiratory failure with hypoxia Current Visit: Yes Status: Acute Objective PUL Vital signs: Last Vital Signs Temp 97.4 F L 10/11/18 07:10 Pulse 66 10/11/18 09:00 Resp 29 10/11/18 09:00 BP 78/62 10/11/18 09:00 Pulse Ox 100 10/11/18 09:00 Results - Laboratory Findings CBC and BMP: 10/13/18 04:05 10/13/18 04:05 ABG ABG pH 7.45 pH Units (7.32-7.45) 10/10/18 04:32 ABG pCO2 26 mmHg (35-45) L 10/10/18 04:32 ABG pO2 126 mmHg (85-104) H 10/10/18 04:32 ABG O2 Saturation 99 % (95-98) H 10/10/18 04:32 PT/INR, D-dimer PT 14.5 Seconds (9.4-12.1) H 10/10/18 10:09 Abnormal lab findings: Abnormal lab results WBC 17.9 K/mcL (4.3-11.1) H 10/11/18 04:40 RBC 3.73 M/mcL (4.19-5.50) L 10/11/18 04:40 Hgb 11.4 g/dL (12.9-16.9) L 10/11/18 04:40 Hct 33.2 % (37.5-50.1) L 10/11/18 04:40 MCHC 31.4 g/dL (31.6-35.5) L 10/07/18 13:28 RDW 14.7 % (11.5-14.5) H 10/11/18 04:40 Neutrophils # 15.9 K/mcL (1.6-8.9) H 10/11/18 04:40 Lymphocytes # 0.4 K/mcL (0.6-4.6) L 10/10/18 13:05 Monocytes # 1.4 K/mcL (0.0-1.3) H 10/07/18 18:41 Nucleated RBCs/100 WBC 0.2 /100 WBC (0) H 10/11/18 04:40 PT 14.5 Seconds (9.4-12.1) H 10/10/18 10:09 APTT 41.6 Seconds (26.0-36.0) H 10/09/18 00:00 Heparin Anti-Xa, Unfract 0.18 IU/mL (0.30-0.70) L 10/11/18 04:40 ABG pH 7.28 pH Units (7.32-7.45) L 10/07/18 20:00 ABG pCO2 26 mmHg (35-45) L 10/10/18 04:32 ABG pO2 126 mmHg (85-104) H 10/10/18 04:32 ABG HCO3 18 mEq/L (21-27) L 10/10/18 04:32 ABG Total CO2 19 mEq/L (20-26) L 10/10/18 04:32 ABG O2 Saturation 99 % (95-98) H 10/10/18 04:32 ABG Base Excess -4 mEq/L (-2 to 3) L 10/10/18 04:32 Potassium 3.3 mEq/L (3.5-5.1) L 10/10/18 13:05 Chloride 108 mEq/L (98-107) H 10/10/18 13:05 Carbon Dioxide 20 mEq/L (23-29) L 10/10/18 03:35 BUN 29 mg/dL (6-20) H 10/11/18 04:40 Creatinine 1.44 mg/dL (0.70-1.30) H 10/11/18 04:40 Est GFR ( Amer) 55 (> 60) L 10/10/18 13:05 Est GFR (Non-Af Amer) 51 (> 60) L 10/11/18 04:40 Glucose 160 mg/dL (70-105) H 10/11/18 04:40 POC Glucose 185 mg/dL (70-99) H 10/10/18 23:33 Calculated Osmolality 307 (280-300) H 10/11/18 04:40 Lactic Acid 3.3 mmol/L (0.5-2.2) H 10/09/18 20:05 Calcium 8.4 mg/dL (8.6-10.3) L 10/10/18 13:05 Venous Ioniz Calcium 1.09 mmol/L (1.15-1.35) L 10/10/18 18:44 Phosphorus 4.9 mg/dL (2.7-4.5) H 10/09/18 00:00 Total Bilirubin 2.1 mg/dL (0.3-1.0) H 10/07/18 13:28 AST 229 Units/L (13-39) H 10/07/18 13:28 ALT 64 Units/L (7-52) H 10/07/18 13:28 B-Natriuretic Peptide 1124 pg/mL (Less than 100) H 10/09/18 20:05 Serum Total Protein 5.9 g/dL (6.4-8.9) L 10/07/18 13:28 Urine Color Red (Yellow) A 10/08/18 14:26 Urine Clarity Turbid (Clear) A 10/08/18 14:26 Ur Specific [place] > 1.030 (1.010-1.025) H 10/08/18 14:26 Urine Protein 100 mg/dL (Neg-Trace) H 10/08/18 14:26 Urine Ketones 15 mg/dL (Negative) H 10/08/18 14:26 Urine Blood Large (Negative) H 10/08/18 14:26 Urine Nitrite Positive (Negative) A 10/08/18 14:26 Urine Bilirubin Moderate (Negative) H 10/08/18 14:26 Ur Leukocyte Esterase Moderate (Negative) H 10/08/18 14:26 Urine Microscopic RBC TNTC per hpf (0-3) H 10/08/18 14:26 Urine Microscopic WBC 50-100 per hpf (0-3) H 10/08/18 14:26 Ur Squamous Epith Cells Many per lpf (None-Few) H 10/08/18 14:26 Granular Casts Few per lpf (None Seen) H 10/08/18 14:26 Ur Culture Indicated? YES (NO) A 10/08/18 14:26 - Microbiology Findings Microbiology Findings: Microbiology, Last 48 Hours 10/08/18 13:41 Sputum Culture - Preliminary Sputum 10/08/18 14:26 Urine Culture - Final Urine,Clean Catch No growth. - Clinical Findings Intake & Output: Intake & Output 10/10/18 10/11/18 10/11/18 23:59 07:59 15:59 Intake Total 450 / 1118 368 / 368 Output Total 600 / 1500 350 / 350 Balance -150 / -382 Weight 61.9 kg - Attending Attestation I examined this patient and my medical decision-making was reviewed with the Resident Physician. I agree with the documented findings, disposition and treatment plan as described except to the extent set forth below. Patient seen and examined. Labs, radiology, chart personally reviewed. 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 Continue bronchodilators and systemic steroid to be tapered off. Cardiovascular: hypotensive, but has cardiomyopathy and cardiology is following, with further management will be deferred to cardiology. I am suspecting he will have a follow-up echocardiogram to check his ejection fraction. GI: Nutrition per dietary and GI prophylaxis per routine Heme: DVT prophylaxis per routine ID: Continue antibiotics and plan to de-escalation Renal; urine out put and renal function reviewed Endorcine: blood glucose is monitored Lines: all lines checked and no evidence of infections Skin: skin care to prevent pressure ulcers per nursing routine care Dispo: Transfer to Code: Full. Prognosis. Fair vineyard worker to coordinate with the family since they still want him to be transferred to [place]
--- NOTE | 2018-10-11 10:46 | Cardiology Progress Note ---
Date of Encounter: 10/11/18 Time of Encounter: 09:15 Assessment and Plan (1) STEMI (ST elevation myocardial infarction) Current Visit: Yes Status: Acute Patient presented to [facility] as witnessed cardiac arrest. ECG found to have STEMI. No prior reported CV history. LHC 10/07/18: s/p PTCA/CHANA to mLAD TTE 10/07/18: EF 15% with severe global LV systolic dysfunction, moderate to severe LVDD, no LV thrombus, mild biatrial enlargement, mild TR, mild [place] S/p therapeutic hypothermia per protocol. Continue uninterrupted (asa and plavix). Stressed importance of medication compliance with patient and he voices understanding. Continue statin. No ACEi/ARB, bb due to hypotension. On norepinephrine intermittent for hypotension. NSVT noted 10/08/18 (within 24 hr post PCI), max 11 beats, continue amio gtt. Keep K >4.0, Mg >2.0. No recurrent NSVT seen. Cardiac rehab ordered. Out-pt f/u will be coordinated. Qualifiers: Involved coronary artery: LAD coronary artery Qualified Code(s): I21.02 - ST elevation (STEMI) myocardial infarction involving left anterior descending coronary artery (2) Cardiac arrest Current Visit: Yes Status: Acute Suspected v-fib arrest; s/p mutiple (5+) rounds of CPR. Anterior STEMI on ECG once ROSC achieved. S/p PTCA and CHANA to mLAD. Extubated 10/09/18, currently on nasal cannula. Nurses Aide following appreciate recs. S/p hypothermia protocal. Continues to require pressor support for hypo tension. Add bb when/if able. (3) Atrial fibrillation with RVR Current Visit: Yes Status: Acute Afib with RVR 10/08/18, now NSR. Unclear chronicity. No bb due to hypotension . On amiodarone gtt. Discussed with Dr. Man, id patrick beta-justine would replace amiodarone. D/t hypotension we will need to continue amiodarone. Start 400 mg BID until discharge and then 200 mg BID after. CHA2Ds Vasc=3 (CAD, CHF, reported hx of HTN) Will need long-term AC prior to discharge discussed with patient. Discussed with Dr. Man, he will require triple therpy with asa, plavix, and xarelto. Currently tolerating heparin gtt well. Xarelto sent to pharmacy for roy check. (4) Chest pain Current Visit: No Status: Acute Reproducible chest pain after CPR. Continue daily EKG. Qualifiers: Chest pain type: unspecified Qualified Code(s): R07.9 - Chest pain, unspecified (5) Acute systolic CHF (congestive heart failure), NYHA class 3 Current Visit: Yes Status: Acute Patient found to have acute systolic CHF with MD. EF 15%. Lasix started by primary team yesterday evening. CXR with possible, PNA, VS, edema, vs ARDS. With low b/p patient may not tolerate lasix. No edema noted. Coarse rhonci scattered throughout. Monitor strict I&o and daily weights. Low sodium diet. No aceI /arb or bb due to hypotension. Discussion w patient/family: The assessment and plan as outlined above was discussed with the patient and/or family members who expressed understanding and agreement. All questions were answered. Thank you for involving us in the care of your patient. Please call with any questions. Subjective Principal diagnosis: Cardiac arrest Interval history: Mr. Acevedo is of bipap and on Nasal Cannula. He is less confused today. States that he is not interested in transfer at this time. Objective Vital Signs, Last 4 Hours Temp Pulse Resp BP Pulse Ox 10/11/18 09:00 66 29 78/62 100 10/11/18 08:00 67 10/11/18 07:10 97.4 F L General: Conversant, No Apparent Distress HEENT: Atraumatic, Normocephaly, Mucus Membranes Moist Neck: No JVD, Normal carotid pulses Cardiac: Reg Rate and Rhythm, Normal S1 and S2, No Murmur Lungs: Normal Breath Sounds, No Wheeze, Rales, Rhonchi Neuro: Alert and responsive, No focal deficits noted Abdomen: Soft, Non-Tender Skin: No rashes noted on visualized skin Musculoskeletal: No Chest Wall Tenderness Extremities: No Clubbing, No Cyanosis, No Edema, Normal Pulses Results 10/11/18 04:40 10/11/18 04:40 Lab Results 10/10/18 10/10/18 10/10/18 10:09 13:05 13:05 WBC 16.7 H Hgb 11.5 L Hct 33.5 L Plt Count 152 INR 1.3 Sodium 141 Potassium 3.3 L Chloride 108 H Carbon Dioxide 24 BUN 27 H Creatinine 1.59 H Glucose 167 H Calcium 8.4 L Magnesium 2.1 10/11/18 10/11/18 04:40 04:40 WBC 17.9 H Hgb 11.4 L Hct 33.2 L Plt Count 151 INR Sodium 144 Potassium 3.6 Chloride 106 Carbon Dioxide 25 BUN 29 H Creatinine 1.44 H Glucose 160 H Calcium 8.7 Magnesium - Imaging and Cardiology Echo: report reviewed - EKG Interpretation EKG results cardiology: personally reviewed Consult Discharge Plan - Plan Referrals: NONE,PCP [Primary Care Provider] - Prescriptions: Rivaroxaban [Xarelto] 20 mg PO DAILY #30 tablet
[2018-10-11] MEDS: Budesonide/Formoterol 160/4.5 1 PUFF INH IH SCH ×2 (10:49→22:21)
[2018-10-11] MEDS ORDERED: Nicotine 7 MG PATCH.TD24 TD SCH (11:06)
[2018-10-11] MEDS ORDERED: Insulin LISPRO 300 UNITS/3 ML VIAL SQ SCH ×2 (11:30→21:00)
[2018-10-11] MEDS ORDERED: *HR* Dextrose 50 % in Water (Syg) 50 ML SYRINGE IVP PRN (12:52)
[2018-10-11] MEDS ORDERED: Naloxone 0.4 MG/ML INJ IVP PRN (12:52)
[2018-10-11] MEDS ORDERED: D5% in Water 1,000 ML IVC PRN (12:52)
[2018-10-11] MEDS ORDERED: Heparin 25,000 UNIT/250 ML D5W 25,000 UNIT/250 ML IV.SOLN IVC SCH (12:52)
[2018-10-11] MEDS ORDERED: Dextrose Gel 15 GM/37.5 ML TUBE PO PRN ×2 (12:52)
[2018-10-11] MEDS ORDERED: Amiodarone Premix 360 MG/200 ML BAG IVC SCH (12:52)
[2018-10-11] MEDS ORDERED: *HR* LORazepam 2 MG/ML VIAL IVP PRN (12:52)
[2018-10-11] MEDS: Nystatin SUSP 5 ML UD.LIQ PO SCH ×3 (13:37→21:01)
[2018-10-11] MEDS: *HR* Rivaroxaban 10 MG TABLET PO SCH (18:04)
[2018-10-11] MEDS: *HR* Amiodarone 200 MG TABLET PO SCH ×2 (18:13→21:03)
[2018-10-12] MEDS: Nicotine 21 MG PATCH.TD24 TD SCH (03:00)
[2018-10-12] MEDS ORDERED: Haloperidol Lactate 5 MG/ML VIAL IVP ONE (03:18)
[2018-10-12] MEDS: Ipratropium/Albuterol Neb 3 ML IH SCH ×4 (03:50→22:20)
[2018-10-12] MEDS: Piperacillin/Tazobactam 3.375 GM in 0.9 % Sodium Chloride Mini Bag 100 ML IVPB SCH ×3 (06:05→21:00)
[2018-10-12 06:46] LABS: BUN/Creatinine Ratio 27 (6-26); Blood Urea Nitrogen 35 mg/dL (6-20); Calcium 8.8 mg/dL (8.6-10.3); Carbon Dioxide 26 mEq/L (23-29); Chloride 111 mEq/L (98-107); Glucose 135 mg/dL (70-105); Osmolality,Calculated 314 (280-300); Potassium 3.8 mEq/L (3.5-5.1); Sodium 147 mEq/L (136-145); eGFR For African Americans > 60 (> 60); eGFR For Non-African Americans 57 (> 60)
[2018-10-12 08:10] LABS: Magnesium 2.2 mg/dL (1.6-2.6)
[2018-10-12] MEDS ORDERED: Haloperidol Lactate 5 MG/ML VIAL IVP PRN (08:34)
[2018-10-12] MEDS: Nystatin SUSP 5 ML UD.LIQ PO SCH ×4 (08:35→21:00)
[2018-10-12] MEDS: Furosemide 20 MG/2 ML VIAL IVP SCH (08:35)
[2018-10-12] MEDS: Pantoprazole 40 MG VIAL IVP SCH (08:35)
[2018-10-12] MEDS: Aspirin 81 MG TAB.CHEW PO SCH (08:35)
[2018-10-12] MEDS: *HR* Amiodarone 200 MG TABLET PO SCH ×2 (08:35→21:00)
[2018-10-12] MEDS: Insulin LISPRO 300 UNITS/3 ML VIAL SQ SCH ×4 (08:38→20:53)
[2018-10-12] MEDS ORDERED: Nicotine 7 MG PATCH.TD24 TD SCH (09:00)
[2018-10-12] MEDS: Budesonide/Formoterol 160/4.5 1 PUFF INH IH SCH ×2 (11:10→22:20)
--- NOTE | 2018-10-12 13:18 | Cardiology Progress Note ---
Date of Encounter: 10/12/18 Time of Encounter: 09:30 Assessment and Plan (1) STEMI (ST elevation myocardial infarction) Current Visit: Yes Status: Acute Patient presented to [facility] as witnessed cardiac arrest. ECG found to have STEMI. No prior reported CV history. LHC 10/07/18: s/p PTCA/CHANA to mLAD TTE 10/07/18: EF 15% with severe global LV systolic dysfunction, moderate to severe LVDD, no LV thrombus, mild biatrial enlargement, mild TR, mild CT S/p therapeutic hypothermia per protocol. Continue uninterrupted (asa and plavix). Stressed importance of medication compliance with patient and he voices understanding. Continue statin. No ACEi/ARB, bb due to hypotension. He is now off pressors support and blood pressure is better. We will add a low-dose Toprol XL. If patient can tolerate well we will discontinue amiodarone at discharge. NSVT noted 10/08/18 (within 24 hr post PCI), max 11 beats, continue amio gtt. Keep K >4.0, Mg >2.0. No recurrent NSVT seen. Cardiac rehab ordered. Out-pt f/u will be coordinated. Qualifiers: Involved coronary artery: LAD coronary artery Qualified Code(s): I21.02 - ST elevation (STEMI) myocardial infarction involving left anterior descending co ronary artery (2) Cardiac arrest Current Visit: Yes Status: Acute Suspected v-fib arrest; s/p mutiple (5+) rounds of CPR. Anterior STEMI on ECG once ROSC achieved. S/p PTCA and CHANA to mLAD. Extubated 10/09/18, currently on nasal cannula. Corporate Sales Representative following appreciate recs. S/p hypothermia protocal. On amio. Add bb (3) Atrial fibrillation with RVR Current Visit: Yes Status: Acute Afib with RVR 10/08/18, now NSR. Unclear chronicity. No bb due to hypotension, will add today . On oral amiodarone. Discussed with Dr. Bellamy, if he tolerates beta justine can discontinue amiodarone at discharge. Continue amiodarone for now. CHA2Ds Vasc=3 (CAD, CHF, reported hx of HTN) Will need long-term AC prior to discharge discussed with patient. Placed on Xarelto yesterday. Appears to be tolerating well. His co-pays $0. (4) Chest pain Current Visit: No Status: Acute Reproducible chest pain after CPR. Continue daily EKG. Qualifiers: Chest pain type: unspecified Qualified Code(s): R07.9 - Chest pain, unspecified (5) Acute systolic CHF (congestive heart failure), NYHA class 3 Current Visit: Yes Status: Acute Patient found to have acute systolic CHF with [place]. EF 15%. Lasix started by primary team yesterday evening. CXR with possible, PNA, VS, edema, vs ARDS. Change to oral lasix. No edema noted. Coarse rhonci scattered throughout. Monitor strict I&o and daily weights. Low sodium diet. No aceI /arb due to hypotension. Discussion w patient/family: The assessment and plan as outlined above was discussed with the patient and/or family members who expressed understanding and agreement. All questions were answered. Thank you for involving us in the care of your patient. Please call with any questions. Subjective Principal diagnosis: Cardiac arrest Interval history: Mr. Acevedo is on step down unit. B/p better. Objective Vital Signs, Last 4 Hours Temp Pulse Resp BP Pulse Ox 10/12/18 11:05 98.5 F 84 28 115/85 93 General: Conversant, No Apparent Distress HEENT: Atraumatic, Normocephaly, Mucus Membranes Moist Neck: No JVD, Normal carotid pulses Cardiac: Reg Rate and Rhythm, Normal S1 and S2, No Murmur Lungs: Normal Breath Sounds, No Wheeze, Rales, Rhonchi Neuro: Alert and responsive, No focal deficits noted Abdomen: Soft, Non-Tender Skin: No rashes noted on visualized skin Musculoskeletal: No Chest Wall Tenderness Extremities: No Clubbing, No Cyanosis, No Edema, Normal Pulses Results 10/11/18 04:40 10/12/18 06:04 Lab Results 10/12/18 06:04 Sodium 147 H Potassium 3.8 Chloride 111 H Carbon Dioxide 26 BUN 35 H Creatinine 1.32 H Glucose 135 H Calcium 8.8 Magnesium 2.2 Consult Discharge Plan - Plan Referrals: Bailee Mccain CNP [Advanced Practice Nurse] - 10/22/18 12:45 pm Luis Alberto Lucero CNP [Advanced Practice Nurse] - (Per the Office they will call the patient at home with a follow up appointment) Prescriptions: Rivaroxaban [Xarelto] 20 mg PO DAILY #30 tablet
--- NOTE | 2018-10-12 13:27 | Internal Med Progress Note ---
Hospitalist Progress Note - Encounter Date of Encounter: 10/12/18 Time of Encounter: 08:30 - Subjective Interval History: Patient was seen at bedside. Transfer from ICU to [facility] yesterday. H&P reviewed and hospital course noted. Currently on BiPAP, saturating in the high 90s on BiPAP. Denies any fever, chills, chest pain. Endorses mild shortness of br eath, was given Haldol overnight and he was more calm following the Haldol. Has been feeling better than yesterday. Denies any chest pain. No other overnight events. - Exam Vitals: Temp Pulse Resp BP Pulse Ox 98.5 F 84 28 115/85 93 10/12/18 11:05 10/12/18 11:05 10/12/18 11:05 10/12/18 11:05 10/12/18 11:05 Exam: General: Alert and oriented, mild physical distress, able to follow commands. On BiPAP HEENT: No thyromegaly, no lymphadenopathy, no discharge. Eyes: No discharge. Respiratory: Normal vesicular breathing, no added sounds, breathing equal in both sides. CVS: Normal heart sounds, no murmurs, no edema. Extremities: No peripheral edema, peripheral pulses intact. Lymph nodes: No lymphadenopathy Gastrointestinal: Soft, nontender abdomen, normal abdominal sounds. No distention noted. Genitourinary: No paravertebral tenderness. Neurological: Alert and oriented. No focal deficits. Cranial nerves II-XII intact. - Assessment and Plan (1) Cardiopulmonary arrest Current Visit: No Status: Acute Assessment and Plan: Patient had V. fib arrest on 10/07. 5 rounds of CPR and resuscitated. Had anterior STEMI on EKG. 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 Was extubated Hemodynamically stable at this point. Mild shortness of breath on BiPAP, saturating well. Chest examination clear. Seems to be a component of anxiety. Continue the patient on Lasix. Currently seemed euvolemic although. We will try to get the patient back on oxygen and off BiPAP. (2) Acute respiratory failure with hypoxia Current Visit: Yes Status: Acute Assessment and Plan: Was extubated 2 days back, saturating well. He was started on BiPAP. Currently on BiPAP, try to wean to oxygen. Etiologies include pneumonia vs fluid overload. Patient seems euvolemic on exam although. -CXR from 10/10 showed Patchy airspace opacities, right more than left, may be related to pulmonary edema, ARDS or pneumonia, markedly increased in the right hemithorax. Repeat the chest x-ray to evaluate for any pulmonary vascular congestion. Continue Lasix. Continue DuoNeb, Symbicort, Continue Zosyn. (3) Acute systolic CHF (congestive heart failure), NYHA class 3 Current Visit: Yes Status: Acute Assessment and Plan: Acute systolic congestive heart failure likely secondary to [place]. Echo with ejection fraction of 15%. Currently on Lasix 20 mg daily. Dose adjustments per cardiology. Seems euvolemic on exam. Monitor input and output, daily weights. -Metoprolol added by cardiolgoy. -Not on DANIS-I, spironolactone 2/2 hypotension (4) Atrial fibrillation with RVR Current Visit: Yes Status: Acute Assessment and Plan: Diagnosed with atrial fibrillation following the [place]. Was started on amiodarone drip, currently on 400 mg twice a day amiodarone Beta justine added by cardiology today. CHADVAc of 3, will need AC indefinitely. -On xarelto. (5) Hypotension Current Visit: Yes Status: Acute Assessment and Plan: Resolved. Not on pressors anymore. Continue to monitor. (6) STEMI (ST elevation myocardial infarction) Current Visit: Yes Status: Acute Assessment and Plan: STEMI leading to cardiac arrest. [facility] 10/07/18: s/p PTCA/CHANA to mLAD -Echo showed ejection fraction of 15% with severe global left ventricular systolic dysfunction, moderate to severe LVEDD, normal LV thrombus, mild TR, mild MD. -Currently on aspirin, Plavix, atorvastatin. Beta justine has been initiated. (7) Anxiety Current Visit: Yes Status: Acute Assessment and Plan: -Seems to be a component of anxity in overall condition. -Started on haldol PRN -Ativan was not effective (8) Electrolyte abnormality Current Visit: Yes Status: Acute Assessment and Plan: Electrolyte replacemetn as per protocol. (9) Tobacco abuse Current Visit: Yes Status: Acute Assessment and Plan: Counseled to stop smoking. Nicotine patch ordered. Counseled about the adverse effect of smoking. - Time Spent with Patient Total time spent is greater than 50% in coordination of care (as documented) at patient's floor/unit and/or counseling patient: Internal Medicine: Result - Labs CBC & Chem 7: 10/11/18 04:40 10/12/18 12:47 Labs: BMP 10/12/18 10/12/18 06:04 12:47 Sodium 147 H Potassium 3.8 3.8 Chloride 111 H Carbon Dioxide 26 BUN 35 H Creatinine 1.32 H Glucose 135 H Calcium 8.8 - ABG Interpretation ABG results: ABG ABG pH 7.45 pH Units (7.32-7.45) 10/10/18 04:32 ABG pCO2 26 mmHg (35-45) L 10/10/18 04:32 ABG pO2 126 mmHg (85-104) H 10/10/18 04:32 ABG O2 Saturation 99 % (95-98) H 10/10/18 04:32 PT/INR, D-dimer PT 14.5 Seconds (9.4-12.1) H 10/10/18 10:09 Consult Discharge Plan - Plan Referrals: Bailee Mccain CNP [Advanced Practice Nurse] - 10/22/18 12:45 pm Luis Alberto Lucero CNP [Advanced Practice Nurse] - (Per the Office they will call the patient at home with a follow up appointment) Prescriptions: Rivaroxaban [Xarelto] 20 mg PO DAILY #30 tablet (5) Hypotension Qualifiers: Hypotension type: other hypotension type Qualified Code(s): I95.89 - Other hypotension (6) STEMI (ST elevation myocardial infarction) Qualifiers: Involved coronary artery: LAD coronary artery Qualified Code(s): I21.02 - ST elevation (STEMI) myocardial infarction involving left anterior descending coronary artery
[2018-10-12] MEDS: Metoprolol XL (24 HR) Succ 25 MG TAB.ER.24H PO SCH (13:50)
[2018-10-12] MEDS ORDERED: Furosemide 20 MG/2 ML VIAL IVP ONE ×2 (16:16→21:00)
[2018-10-12] MEDS: *HR* Rivaroxaban 10 MG TABLET PO SCH (16:55)
[2018-10-12] MEDS ORDERED: Furosemide 20 MG TABLET PO SCH (17:00)
[2018-10-12] MEDS ORDERED: Furosemide 20 MG TABLET PO ONE (21:00)
[2018-10-13] MEDS: Ipratropium/Albuterol Neb 3 ML IH SCH ×4 (03:50→22:16)
[2018-10-13 04:32] LABS: Basophils % 0.1 %; Eosinophils % 0.2 %; Hematocrit 30.8 % (37.5-50.1); Hemoglobin 10.4 g/dL (12.9-16.9); Immature Granulocytes % 0.7 % (0-4); Lymphocytes # 1.2 K/mcL (0.6-4.6); Lymphocytes % 9.3 %; Mean Corpuscular HGB Conc 33.8 g/dL (31.6-35.5); Mean Corpuscular Volume 91.7 fL (83.0-100.0); Mean Platelet Volume 11.1 fL (9.4-12.4); Monocytes # 1.7 K/mcL (0.0-1.3); Monocytes % 13.4 %; Neutrophils # 9.9 K/mcL (1.6-8.9); Nucleated Red Blood Cells 0.5 /100 WBC (0); Platelet Count 169 K/mcL (140-400); Red Blood Count 3.36 M/mcL (4.19-5.50); Red Cell Distribution Width 14.8 % (11.5-14.5); Segmented Neutrophils % 76.3 %; White Blood Count 12.9 K/mcL (4.3-11.1)
[2018-10-13 04:39] LABS: BUN/Creatinine Ratio 19 (6-26); Blood Urea Nitrogen 25 mg/dL (6-20); Carbon Dioxide 29 mEq/L (23-29); Chloride 106 mEq/L (98-107); Glucose 110 mg/dL (70-105); Osmolality,Calculated 301 (280-300); Phosphorous 2.8 mg/dL (2.7-4.5); Potassium 3.9 mEq/L (3.5-5.1); Sodium 143 mEq/L (136-145); eGFR For African Americans > 60 (> 60); eGFR For Non-African Americans 55 (> 60)
[2018-10-13] MEDS: Piperacillin/Tazobactam 3.375 GM in 0.9 % Sodium Chloride Mini Bag 100 ML IVPB SCH ×3 (05:48→20:59)
[2018-10-13] MEDS ORDERED: Furosemide 40 MG TABLET PO SCH (08:00)
[2018-10-13] MEDS: Insulin LISPRO 300 UNITS/3 ML VIAL SQ SCH ×4 (08:08→20:46)
[2018-10-13] MEDS: *HR* Amiodarone 200 MG TABLET PO SCH ×2 (08:30→20:58)
[2018-10-13] MEDS: Aspirin 81 MG TAB.CHEW PO SCH (08:30)
[2018-10-13] MEDS: Pantoprazole 40 MG VIAL IVP SCH (08:30)
[2018-10-13] MEDS: Nicotine 21 MG PATCH.TD24 TD SCH (08:30)
[2018-10-13] MEDS: Metoprolol XL (24 HR) Succ 25 MG TAB.ER.24H PO SCH (08:30)
[2018-10-13] MEDS: Nystatin SUSP 5 ML UD.LIQ PO SCH ×4 (08:30→20:59)
[2018-10-13] MEDS ORDERED: Furosemide 20 MG TABLET PO SCH (09:00)
[2018-10-13] MEDS ORDERED: Furosemide 40 MG/4 ML VIAL IVP SCH (09:00)
[2018-10-13] MEDS: Budesonide/Formoterol 160/4.5 1 PUFF INH IH SCH ×2 (11:28→22:16)
--- NOTE | 2018-10-13 11:53 | Cardiology Progress Note ---
Date of Encounter: 10/13/18 Time of Encounter: 09:45 Assessment and Plan (1) Acute systolic CHF (congestive heart failure), NYHA class 3 Current Visit: Yes Status: Acute Patient found to have acute systolic CHF with [place]. EF 15%. CXR with possible, PNA VS edema. Yesterday patient was to And Lasix increased yesterday evening. Appears patient was placed on oral Lasis today was suppose to be on IV lasix per verbal order by me. WIll give IV lasix tonight. He appears to be close to euvolemia but continues to have high oxygen requirements. WIll monitor SCr closely. Appreciate hospitalist recommendation for possible PNA> On toprol XL. no magdalene due to kidney function. Recommend Life vest at discharge. (2) STEMI (ST elevation myocardial infarction) Current Visit: Yes Status: Acute Patient presented to [facility] as witnessed cardiac arrest. ECG found to have STEMI. No prior reported CV history. [facility] 10/07/18: s/p PTCA/CHANA to mLAD T[facility] 10/07/18: EF 15% with severe global LV systolic dysfunction, moderate to severe LVDD, no LV thrombus, mild biatrial enlargement, mild TR, mild UT Continue uninterrupted (asa and plavix). Stressed importance of medication compliance with patient and he voices understanding although he is confused at times. Consider ECF placement versus family helping. Continue statin and beta justine. He is tolerating beta justine will increase today. No ACEi/ARB due to hypotension. NSVT noted 10/08/18 (within 24 hr post PCI) no reoccurence seen. He is tolerating beta justine. Plan to discontinue amiodarone at discharge. Cardiac rehab ordered. Out-pt f/u will be coordinated. Qualifiers: Involved coronary artery: LAD coronary artery Qualified Code(s): I21.02 - ST elevation (STEMI) myocardial infarction involving left anterior descending coronary artery (3) Cardiac arrest Current Visit: Yes Status: Acute Suspected v-fib arrest; s/p mutiple (5+) rounds of CPR. Anterior STEMI on ECG once ROSC achieved. S/p PTCA and CHANA to mLAD. Extubated 10/09/18, currently on nasal cannula. Long Term Acute Care Registered Nurse following appreciate recs. S/p hypothermia protocal. On amio. Add bb Plan to discontinue amiodarone at discharge. (4) Atrial fibrillation with RVR Current Visit: Yes Status: Acute Afib with RVR 10/08/18, now NSR. Unclear chronicity. Discussed with Dr. Bellamy, if he tolerates beta justine can discontinue amiodarone at discharge. CHA2Ds Vasc=3 (CAD, CHF, reported hx of HTN) Will need long-term AC prior to discharge discussed with patient. Placed on Xarelto yesterday. Noted slow decline Hgb since admission. Monitor closely. No signs of bleeding. There was small amt hemoptysis yesterday. His co-pays $0. (5) Chest pain Current Visit: No Status: Acute Reproducible chest pain after CPR. Continue to monitor. Qualifiers: Chest pain type: unspecified Qualified Code(s): R07.9 - Chest pain, unspecified Discussion w patient/family: The assessment and plan as outlined above was discussed with the patient and/or family members who expressed understanding and agreement. All questions were answered. Thank you for involving us in the care of your patient. Please call with any questions. Subjective Principal diagnosis: Cardiac arrest Interval history: Mr. Acevedo is on step down unit. He is breathing better than yesterday. He is able to lay flat. He continues to have soreness in his chest with palpation. Objective Vital Signs, Last 4 Hours Temp Pulse Resp BP Pulse Ox 10/13/18 11:31 90 10/13/18 11:01 98.9 F 80 24 108/81 90 General: Conversant, No Apparent Distress, Other (Confusion noted) HEENT: Atraumatic, Normocephaly, Mucus Membranes Moist Neck: No JVD, Normal carotid pulses Cardiac: Reg Rate and Rhythm, Normal S1 and S2, No Murmur Lungs: Other (Respirations easy today. Patient can lay flat. Rhonchi scattered throughout.) Neuro: Alert and responsive, No focal deficits noted Abdomen: Soft, Non-Tender Skin: No rashes noted on visualized skin Musculoskeletal: No Chest Wall Tenderness Extremities: No Clubbing, No Cyanosis, No Edema, Normal Pulses Results 10/13/18 04:05 10/13/18 10:16 Lab Results 10/12/18 10/13/18 10/13/18 12:47 04:05 04:05 WBC 12.9 H Hgb 10.4 L Hct 30.8 L Plt Count 169 Sodium 143 Potassium 3.8 3.9 Chloride 106 Carbon Dioxide 29 BUN 25 H Creatinine 1.35 H Glucose 110 H Calcium 9.0 Magnesium 2.0 10/13/18 10:16 WBC Hgb Hct Plt Count Sodium Potassium 3.7 Chloride Carbon Dioxide BUN Creatinine Glucose Calcium Magnesium - Imaging and Cardiology Chest Xray: report reviewed - EKG Interpretation EKG results cardiology: personally reviewed Consult Discharge Plan - Plan Referrals: Bailee Mccain CNP [Advanced Practice Nurse] - 10/22/18 12:45 pm Luis Alberto Lucero CNP [Advanced Practice Nurse] - (Per the Office they will call the patient at home with a follow up appointment) Prescriptions: Rivaroxaban [Xarelto] 20 mg PO DAILY #30 tablet
[2018-10-13] MEDS ORDERED: Metoprolol XL (24 HR) Succ 25 MG TAB.ER.24H PO ONE (12:00)
--- NOTE | 2018-10-13 12:09 | Internal Med Progress Note ---
Hospitalist Progress Note - Encounter Date of Encounter: 10/13/18 Time of Encounter: 10:30 - Subjective Interval History: Seen at bedside. Complaining of the pain on the left side of the chest. Feels that his shortness of breath is getting better today. Saturation in the the high 90s on 10 L of oxygen. Denies fever, chills, rigors. Endorses cough with sputum production, sometimes it is blood-tinged. No other acute overnight events. - Exam Vitals: Temp Pulse Resp BP Pulse Ox 98.9 F 80 24 108/81 90 10/13/18 11:01 10/13/18 11:01 10/13/18 11:10/13/18 11:10/13/18 11:31 Exam: General: Alert and oriented, mild physical distress, able to follow commands. On BiPAP HEENT: No thyromegaly, no lymphadenopathy, no discharge. Eyes: No discharge. Respiratory: Normal vesicular breathing, no added sounds, breathing equal in both sides. CVS: Normal heart sounds, no murmurs, no edema. Extremities: No peripheral edema, peripheral pulses intact. Lymph nodes: No lymphadenopathy Gastrointestinal: Soft, nontender abdomen, normal abdominal sounds. No di stention noted. Genitourinary: No paravertebral tenderness. Neurological: Alert and oriented. No focal deficits. Cranial nerves II-XII intact. - Assessment and Plan (1) Cardiopulmonary arrest Current Visit: No Status: Acute Assessment and Plan: Patient had V. fib arrest on 10/07. 5 rounds of CPR and resuscitated. Had anterior STEMI on EKG. Was in the intensive care unit where hypothermic protocol was completed and the patient began consciousness and Currently not on pressors. Hemodynamically stable at this point. On 10 L of O2, saturating well. Chest examination clear. Continue the patient on Lasix. Dosing as per cardio recommendations. (2) Acute respiratory failure with hypoxia Current Visit: Yes Status: Acute Assessment and Plan: Was extubated 3 days back, saturating well on 10 L. Etiologies include pneumonia vs fluid overload as per CXR repeated 10/13. Continue Lasix. Continue DuoNeb, Symbicort, Continue Zosyn for possible PNA (3) Acute systolic CHF (congestive heart failure), NYHA class 3 Current Visit: Yes Status: Acute Assessment and Plan: Acute systolic congestive heart failure secondary to [place]. Echo with ejection fraction of 15%. Currently on Lasix. Dose adjustments per cardiology. Monitor input and output, daily weights. -Metoprolol added by cardiolgoy. -Not on DANIS-I, spironolactone 2/2 kidney functions (4) Atrial fibrillation with RVR Current Visit: Yes Status: Acute Assessment and Plan: Diagnosed with atrial fibrillation following the [place]. Was started on amiodarone drip, currently on 200 mg twice a day amiodarone Beta justine added, tolerating it well CHADVAc of 3, will need AC indefinitely. -On xarelto. (5) Hypotension Current Visit: Yes Status: Acute Assessment and Plan: Resolved. Not on pressors anymore. Continue to monitor. (6) STEMI (ST elevation myocardial infarction) Current Visit: Yes Status: Acute Assessment and Plan: STEMI leading to cardiac arrest. [facility] 10/07/18: s/p PTCA/CHANA to mLAD -Echo showed ejection fraction of 15% with severe global left ventricular systolic dysfunction, moderate to severe LVEDD, normal LV thrombus, mild TR, mild MS. -Currently on aspirin, Plavix, atorvastatin. Beta justine has been initiated. (7) Anxiety Current Visit: Yes Status: Acute Assessment and Plan: -Seems to be a component of anxity in overall condition. -Started on haldol PRN -Ativan was not effective (8) Electrolyte abnormality Current Visit: Yes Status: Acute Assessment and Plan: Electrolyte replacemetn as per protocol. -Repat levels every 4AM (9) Tobacco abuse Current Visit: Yes Status: Acute Assessment and Plan: Counseled to stop smoking. Nicotine patch ordered. Counseled about the adverse effect of smoking. (10) Drop in hemoglobin Current Visit: Yes Status: Acute Assessment and Plan: -Hgb dropped from 11.4 to 10.4 -Etiolgoy uncear -No clear signs of bleeidng -Mild hemoptysis likely following the extubation. -HDS -Will repeat CBC and continue to trend - Time Spent with Patient Total time spent is greater than 50% in coordination of care (as documented) at patient's floor/unit and/or counseling patient: Internal Medicine: Result - Labs CBC & Chem 7: 10/13/18 04:05 10/13/18 10:16 Labs: Short CBC 10/13/18 Range/Units 04:05 WBC 12.9 H (4.3-11.1) K/mcL Hgb 10.4 L (12.9-16.9) g/dL Hct 30.8 L (37.5-50.1) % Plt Count 169 (140-400) K/mcL Neutrophils # 9.9 H (1.6-8.9) K/mcL BMP 10/12/18 10/13/18 10/13/18 12:47 04:05 10:16 Sodium 143 Potassium 3.8 3.9 3.7 Chloride 106 Carbon Dioxide 29 BUN 25 H Creatinine 1.35 H Glucose 110 H Calcium 9.0 - ABG Interpretation ABG results: ABG ABG pH 7.45 pH Units (7.32-7.45) 10/10/18 04:32 ABG pCO2 26 mmHg (35-45) L 10/10/18 04:32 ABG pO2 126 mmHg (85-104) H 10/10/18 04:32 ABG O2 Saturation 99 % (95-98) H 10/10/18 04:32 PT/INR, D-dimer PT 14.5 Seconds (9.4-12.1) H 10/10/18 10:09 - Impressions Impressions Chest X-Ray 10/12/18 08:33 IMPRESSION: Diffuse ground-glass opacification in the bilateral lungs in a pattern that would favor pulmonary edema or developing ARDS. D/ / Abdifatah James MD / Abdifatah James MD Interpreting Provider: Abdifatah James MD Chest X-Ray 10/13/18 06:00 IMPRESSION: Progression of diffuse bilateral pulmonary infiltrates. The findings are nonspecific, possibly related to pulmonary edema or pneumonia. D/ / Shorty Kessler MD / Shorty Kessler MD Interpreting Provider: Shorty Kessler MD Consult Discharge Plan - Plan Referrals: Bailee Mccain CNP [Advanced Practice Nurse] - 10/22/18 12:45 pm [place],[facility] [Advanced Practice Nurse] - (Per the Office they will call the patient at home with a follow up appointment) Prescriptions: Rivaroxaban [Xarelto] 20 mg PO DAILY #30 tablet (5) Hypotension Qualifiers: Hypotension type: other hypotension type Qualified Code(s): I95.89 - Other hypotension (6) STEMI (ST elevation myocardial infarction) Qualifiers: Involved coronary artery: LAD coronary artery Qualified Code(s): I21.02 - ST elevation (STEMI) myocardial infarction involving left anterior descending coronary artery
[2018-10-13 15:12] LABS: Basophils % 0.1 %; Eosinophils % 0.3 %; Hematocrit 32.2 % (37.5-50.1); Hemoglobin 10.6 g/dL (12.9-16.9); Immature Granulocytes % 0.7 % (0-4); Lymphocytes % 7.5 %; Mean Corpuscular HGB Conc 32.9 g/dL (31.6-35.5); Mean Corpuscular Hemoglobin 30.6 pg (28.0-33.3); Mean Corpuscular Volume 93.1 fL (83.0-100.0); Mean Platelet Volume 10.9 fL (9.4-12.4); Monocytes # 1.7 K/mcL (0.0-1.3); Monocytes % 12.9 %; Neutrophils # 10.5 K/mcL (1.6-8.9); Nucleated Red Blood Cells 0.4 /100 WBC (0); Platelet Count 184 K/mcL (140-400); Red Blood Count 3.46 M/mcL (4.19-5.50); Red Cell Distribution Width 14.9 % (11.5-14.5); Segmented Neutrophils % 78.5 %; White Blood Count 13.4 K/mcL (4.3-11.1)
[2018-10-13] MEDS: *HR* Rivaroxaban 10 MG TABLET PO SCH (18:08)
[2018-10-13] MEDS: Furosemide 20 MG/2 ML VIAL IVP SCH (20:59)
[2018-10-14] MEDS: Ipratropium/Albuterol Neb 3 ML IH SCH ×4 (03:55→22:10)
[2018-10-14 05:14] LABS: Hematocrit 32.9 % (37.5-50.1); Hemoglobin 10.9 g/dL (12.9-16.9); Mean Corpuscular HGB Conc 33.1 g/dL (31.6-35.5); Mean Corpuscular Hemoglobin 30.2 pg (28.0-33.3); Mean Corpuscular Volume 91.1 fL (83.0-100.0); Mean Platelet Volume 10.4 fL (9.4-12.4); Platelet Count 187 K/mcL (140-400); Red Blood Count 3.61 M/mcL (4.19-5.50); Red Cell Distribution Width 14.4 % (11.5-14.5); White Blood Count 11.3 K/mcL (4.3-11.1)
[2018-10-14 05:32] LABS: BUN/Creatinine Ratio 18 (6-26); Blood Urea Nitrogen 23 mg/dL (6-20); Calcium 8.8 mg/dL (8.6-10.3); Carbon Dioxide 33 mEq/L (23-29); Chloride 100 mEq/L (98-107); Glucose 97 mg/dL (70-105); Magnesium 1.9 mg/dL (1.6-2.6); Osmolality,Calculated 300 (280-300); Phosphorous 5.5 mg/dL (2.7-4.5); Potassium 3.5 mEq/L (3.5-5.1); Sodium 143 mEq/L (136-145); eGFR For African Americans > 60 (> 60); eGFR For Non-African Americans 59 (> 60)
[2018-10-14] MEDS: Piperacillin/Tazobactam 3.375 GM in 0.9 % Sodium Chloride Mini Bag 100 ML IVPB SCH ×3 (05:39→22:00)
[2018-10-14] MEDS: Norepinephrine 8 MG in 0.9 % Sodium Chloride 250 ML IVC SCH (07:37)
[2018-10-14] MEDS: Heparin 25,000 UNIT/250 ML D5W 25,000 UNIT/250 ML IV.SOLN IVC SCH (07:38)
[2018-10-14] MEDS: *HR* Amiodarone 200 MG TABLET PO SCH ×2 (08:42→19:54)
[2018-10-14] MEDS: Aspirin 81 MG TAB.CHEW PO SCH (08:42)
[2018-10-14] MEDS: Insulin LISPRO 300 UNITS/3 ML VIAL SQ SCH ×4 (08:42→19:55)
[2018-10-14] MEDS: Nicotine 21 MG PATCH.TD24 TD SCH (08:43)
[2018-10-14] MEDS: Furosemide 20 MG/2 ML VIAL IVP SCH ×2 (08:44→19:56)
[2018-10-14] MEDS: Pantoprazole 40 MG VIAL IVP SCH (08:44)
[2018-10-14] MEDS: Nystatin SUSP 5 ML UD.LIQ PO SCH ×4 (08:44→19:54)
[2018-10-14] MEDS: Budesonide/Formoterol 160/4.5 1 PUFF INH IH SCH ×2 (11:27→22:10)
--- NOTE | 2018-10-14 12:08 | Internal Med Progress Note ---
Hospitalist Progress Note - Encounter Date of Encounter: 10/14/18 Time of Encounter: 10:30 - Subjective Interval History: Pt seen at bedside. Is lookign much comfortabble today. Denies chest pain shortness of breath rigorous chills fever today. No other overnight events. Currently on oxygen saturation in high 90s. Wants to go home. - Exam Vitals: Temp Pulse Resp BP Pulse Ox 97.3 F L 78 16 98/68 96 10/14/18 11:47 10/14/18 11:47 10/14/18 11:47 10/14/18 11:47 10/14/18 11:47 Exam: General: Alert and oriented, mild physical distress, able to follow commands. On BiPAP HEENT: No thyromegaly, no lymphadenopathy, no discharge. Eyes: No discharge. Respiratory: Normal vesicular breathing, no added sounds, breathing equal in both sides. CVS: Normal heart sounds, no murmurs, no edema. Extremities: No peripheral edema, peripheral pulses intact. Lymph nodes: No lymphadenopathy Gastrointestinal: Soft, nontender abdomen, normal abdominal sounds. No diste ntion noted. Genitourinary: No paravertebral tenderness. Neurological: Alert and oriented. No focal deficits. Cranial nerves II-XII intact. - Assessment and Plan (1) Cardiopulmonary arrest Current Visit: No Status: Acute Assessment and Plan: Patient had V. fib arrest on 10/07. 5 rounds of CPR and resuscitated. Had anterior STEMI on EKG. Was in the intensive care unit where hypothermic protocol was completed and the patient began consciousness and Currently not on pressors. Hemodynamically stable at this point. On 10 L of O2, saturating well. Chest examination clear. Try to trend down the oxygen. Continue the patient on Lasix. Dosing as per cardio recommendations. (2) Acute respiratory failure with hypoxia Current Visit: Yes Status: Acute Assessment and Plan: Was extubated 3 days back, saturating well on 10 L. Etiologies include pneumonia vs fluid overload as per CXR repeated 10/13. Continue Lasix. Continue DuoNeb, Symbicort, Continue Zosyn for possible PNA -Improving overall (3) Acute systolic CHF (congestive heart failure), NYHA class 3 Current Visit: Yes Status: Acute Assessment and Plan: Acute systolic congestive heart failure secondary to [place]. Echo with ejection fraction of 15%. Currently on Lasix. Dose adjustments per cardiology. Monitor input and output, daily weights. -Metoprolol added by cardiolgoy. -Not on DANIS-I, spironolactone 2/2 kidney functions -Will neeed to be discharged on life vest (4) Atrial fibrillation with RVR Current Visit: Yes Status: Acute Assessment and Plan: Diagnosed with atrial fibrillation following the [place]. Was started on amiodarone drip, currently on 200 mg twice a day amiodarone Beta justine added, tolerating it well CHADVAc of 3, will need AC indefinitely. -On xarelto. (5) Hypotension Current Visit: Yes Status: Acute Assessment and Plan: Resolved. Not on pressors anymore. Continue to monitor. (6) STEMI (ST elevation myocardial infarction) Current Visit: Yes Status: Acute Assessment and Plan: STEMI leading to cardiac arrest. [facility] 10/07/18: s/p PTCA/CHANA to mLAD -Echo showed ejection fraction of 15% with severe global left ventricular systolic dysfunction, moderate to severe LVEDD, normal LV thrombus, mild TR, mild [place]. -Currently on aspirin, Plavix, atorvastatin, beta justine. (7) Anxiety Current Visit: Yes Status: Acute Assessment and Plan: -Seems to be a component of anxity in overall condition. -Started on haldol PRN (8) Electrolyte abnormality Current Visit: Yes Status: Acute Assessment and Plan: Electrolyte replacemetn as per protocol. -Repat levels every 4AM (9) Tobacco abuse Current Visit: Yes Status: Acute Assessment and Plan: Counseled to stop smoking. Nicotine patch ordered. Counseled about the adverse effect of smoking. (10) Drop in hemoglobin Current Visit: Yes Status: Acute Assessment and Plan: -Hgb dropped from 2 urbano back. Stable since then. -Etiolgoy uncear -No clear signs of bleeidng -Mild hemoptysis likely following the extubation. -Will repeat CBC and continue to trend - Time Spent with Patient Total time spent is greater than 50% in coordination of care (as documented) at patient's floor/unit and/or counseling patient: Internal Medicine: Result - Labs CBC & Chem 7: 10/14/18 05:00 10/14/18 05:00 Labs: Short CBC 10/13/18 10/14/18 Range/Units 10:58 05:00 WBC 13.4 H 11.3 H (4.3-11.1) K/mcL Hgb 10.6 L 10.9 L (12.9-16.9) g/dL Hct 32.2 L 32.9 L (37.5-50.1) % Plt Count 184 187 (140-400) K/mcL Neutrophils # 10.5 H (1.6-8.9) K/mcL BMP 10/14/18 05:00 Sodium 143 Potassium 3.5 Chloride 100 Carbon Dioxide 33 H BUN 23 H Creatinine 1.27 Glucose 97 Calcium 8.8 - ABG Interpretation ABG results: ABG ABG pH 7.45 pH Units (7.32-7.45) 10/10/18 04:32 ABG pCO2 26 mmHg (35-45) L 10/10/18 04:32 ABG pO2 126 mmHg (85-104) H 10/10/18 04:32 ABG O2 Saturation 99 % (95-98) H 10/10/18 04:32 PT/INR, D-dimer PT 14.5 Seconds (9.4-12.1) H 10/10/18 10:09 Consult Discharge Plan - Plan Referrals: Bailee Mccain CNP [Advanced Practice Nurse] - 10/22/18 12:45 pm Luis Alberto Lucero CNP [Advanced Practice Nurse] - (Per the Office they will call the patient at home with a follow up appointment) Prescriptions: Rivaroxaban [Xarelto] 20 mg PO DAILY #30 tablet _ (5) Hypotension Qualifiers: Hypotension type: other hypotension type Qualified Code(s): I95.89 - Other hypotension (6) STEMI (ST elevation myocardial infarction) Qualifiers: Involved coronary artery: LAD coronary artery Qualified Code(s): I21.02 - ST elevation (STEMI) myocardial infarction involving left anterior descending coronary artery
[2018-10-14] MEDS: Metoprolol XL (24 HR) Succ 25 MG TAB.ER.24H PO SCH (12:11)
--- NOTE | 2018-10-14 14:10 | Cardiology Progress Note ---
Date of Encounter: 10/14/18 Time of Encounter: 14:08 Assessment and Plan (1) Acute systolic CHF (congestive heart failure), NYHA class 3 Current Visit: Yes Status: Acute Patient found to have acute systolic CHF with CT. EF 15%. CXR with possible, PNA VS edema vs developing ARDS. Noted that he is still requiring high flow oxygen, appears to be euvolemic on exam. Discussed with Dr. Mcghee, we will re-consult pulmonology for recommendations and evaluation of lung imaging. Appreciate hospitalist recommendation for possible PNA. On toprol XL- held today for hypotension. No magdalene due to kidney function, will start if SCr remains normal and b/p allows. Recommend Life vest at discharge. Order placed. Continue IV lasix. (2) STEMI (ST elevation myocardial infarction) Current Visit: Yes Status: Acute Patient presented to [facility] as witnessed cardiac arrest. ECG found to have STEMI. No prior reported CV history. LHC 10/07/18: s/p PTCA/CHANA to mLAD TTE 10/07/18: EF 15% with severe global LV systolic dysfunction, moderate to severe LVDD, no LV thrombus, mild biatrial enlargement, mild TR, mild VT Continue uninterrupted (asa and plavix). Stressed importance of medication compliance with patient and he voices understanding although he is confused at times. Consider ECF placement versus family helping. Continue statin and beta justine. He is tolerating beta justine will increase today. No ACEi/ARB due to hypotension. NSVT noted 10/08/18 (within 24 hr post PCI) no re-occurrence seen. He is tolerating beta justine. Plan to discontinue amiodarone at discharge if he is tolerating bb. Cardiac rehab ordered. Out-pt f/u will be coordinated. Qualifiers: Involved coronary artery: LAD coronary artery Qualified Code(s): I21.02 - ST elevation (STEMI) myocardial infarction involving left anterior descending coronary artery (3) Cardiac arrest Current Visit: Yes Status: Acute Suspected v-fib arrest; s/p mutiple (5+) rounds of CPR. Anterior STEMI on ECG once ROSC achieved. S/p PTCA and CHANA to mLAD. Extubated 10/09/18, currently on nasal cannula 8L. S/p hypothermia protocal. On amio. Plan to discontinue amiodarone at discharge if tolerating bb. (4) Atrial fibrillation with RVR Current Visit: Yes Status: Acute Afib with RVR 10/08/18, now NSR. Unclear chronicity. Discussed with Dr. Bellamy, if he tolerates beta justine can discontinue amiodarone at discharge. CHA2Ds Vasc=3 (CAD, CHF, reported hx of HTN) Will need long-term AC prior to discharge discussed with patient. Placed on Xarelto yesterday. His co-pays $0. Hgb stable. (5) Chest pain Current Visit: No Status: Acute Reproducible chest pain after CPR. Continue to monitor. Qualifiers: Chest pain type: unspecified Qualified Code(s): R07.9 - Chest pain, unspecified Discussion w patient/family: The assessment and plan as outlined above was discussed with the patient and/or family members who expressed understanding and agreement. All questions were answered. Thank you for involving us in the care of your patient. Please call with any questions. Subjective Principal diagnosis: Cardiac arrest Interval history: Patient less confused. Confusion comes and goes. Noted patient required bipap last night. Now on 8L NC. Objective Vital Signs, Last 4 Hours Temp Pulse Resp BP Pulse Ox 10/14/18 11:47 97.3 F L 78 16 98/68 96 10/14/18 11:27 16 93 General: Conversant, No Apparent Distress HEENT: Atraumatic, Normocephaly, Mucus Membranes Moist Neck: No JVD, Normal carotid pulses Cardiac: Reg Rate and Rhythm, Normal S1 and S2, No Murmur Lungs: Normal Breath Sounds, No Wheeze, Rales, Rhonchi Neuro: Alert and responsive, No focal deficits noted Abdomen: Soft, Non-Tender Skin: No rashes noted on visualized skin Musculoskeletal: No Chest Wall Tenderness Extremities: No Clubbing, No Cyanosis, No Edema, Normal Pulses Results 10/14/18 05:00 10/14/18 05:00 Lab Results 10/13/18 10/14/18 10/14/18 10:58 05:00 05:00 WBC 13.4 H 11.3 H Hgb 10.6 L 10.9 L Hct 32.2 L 32.9 L Plt Count 184 187 Sodium 143 Potassium 3.5 Chloride 100 Carbon Dioxide 33 H BUN 23 H Creatinine 1.27 Glucose 97 Calcium 8.8 Magnesium 1.9 Consult Discharge Plan - Plan Referrals: Bailee Mccain CNP [Advanced Practice Nurse] - 10/22/18 12:45 pm Luis Alberto Lucero CNP [Advanced Practice Nurse] - (Per the Office they will call the patient at home with a follow up appointment) Prescriptions: Rivaroxaban [Xarelto] 20 mg PO DAILY #30 tablet
--- NOTE | 2018-10-14 14:31 | Pulmonology Progress Note ---
Date of Encounter: 10/14/18 Time of Encounter: 14:31 Assessment and Plan (1) Acute respiratory failure with hypoxia Current Visit: Yes Status: Acute I reviewed the patient's chest x-ray the nursing staff of the cardiology service are both concerned about differentiating ARDS from heart failure unfortunately based upon a chest x-ray this is impossible he may have a component of both hydrostatic and non-hydrostatic (ARDS) pulmonary edema. And effectually at this point the treatment would be the same which is not negative volume status as tolerated. Patient has had anticoagulation during his hospitalization so possibly repeat pulmonary [place] is less likely given recent acute injury uncontrasted CT scan to evaluate for this would expose patient and my mind unnecessary risk. Patient is being treated for possibility of pneumonia white count continues to improve clinically there is no clear signs of active infection When I was in the room his oxygen saturation is 90% on 10 L high flow nasal cannula and suspected FiO2 can be weaned and the goal saturations are greater than 88% around 92%. (2) COPD exacerbation Current Visit: Yes Status: Acute Addition schedule bronchodilators liberated 5 days of prednisone for some wheezing that was detected on the examination today (3) Acute systolic CHF (congestive heart failure), NYHA class 3 Current Visit: Yes Status: Acute Cardiology following would continue to diurese patient as tolerated by blood pressure and renal function (4) Tobacco abuse Current Visit: Yes Status: Acute Reinforced the need to remain tobacco free the time of discharge Subjective Principal diagnosis: Cardiac arrest Interval history: Patient is sitting up in bed says he is feeling better and continues to improve. Pulmonary was asked to reevaluate the patient because of persistent hypoxemia. Patient denies any significant any chest pain or worsening breathing but occasionally is coughing up phlegm. Denies any hemoptysis or fever. Objective PUL Vital signs: Last Vital Signs Temp 97.3 F L 10/14/18 11:47 Pulse 78 10/14/18 11:47 Resp 16 10/14/18 11:47 BP 98/68 10/14/18 11:47 Pulse Ox 96 10/14/18 11:47 General appearance: no acute distress Eyes: nonicteric Auscultation: right: wheezes (Right upper lung field), bilateral: rales Cardiovascular: regular rate and rhythm Gastrointestinal: normoactive bowel sounds Integumentary: normal Extremities: no edema Musculoskeletal: no deformities normal mental status, non-focal exam mood appropriate Results - Laboratory Findings CBC and BMP: 10/14/18 05:00 10/14/18 05:00 ABG ABG pH 7.45 pH Units (7.32-7.45) 10/10/18 04:32 ABG pCO2 26 mmHg (35-45) L 10/10/18 04:32 ABG pO2 126 mmHg (85-104) H 10/10/18 04:32 ABG O2 Saturation 99 % (95-98) H 10/10/18 04:32 PT/INR, D-dimer PT 14.5 Seconds (9.4-12.1) H 10/10/18 10:09 Abnormal lab findings: Abnormal lab results WBC 11.3 K/mcL (4.3-11.1) H 10/14/18 05:00 RBC 3.61 M/mcL (4.19-5.50) L 10/14/18 05:00 Hgb 10.9 g/dL (12.9-16.9) L 10/14/18 05:00 Hct 32.9 % (37.5-50.1) L 10/14/18 05:00 MCHC 31.4 g/dL (31.6-35.5) L 10/07/18 13:28 RDW 14.9 % (11.5-14.5) H 10/13/18 10:58 Neutrophils # 10.5 K/mcL (1.6-8.9) H 10/13/18 10:58 Lymphocytes # 0.4 K/mcL (0.6-4.6) L 10/10/18 13:05 Monocytes # 1.7 K/mcL (0.0-1.3) H 10/13/18 10:58 Nucleated RBCs/100 WBC 0.4 /100 WBC (0) H 10/13/18 10:58 PT 14.5 Seconds (9.4-12.1) H 10/10/18 10:09 APTT 41.6 Seconds (26.0-36.0) H 10/09/18 00:00 Heparin Anti-Xa, Unfract 0.18 IU/mL (0.30-0.70) L 10/11/18 04:40 ABG pH 7.28 pH Units (7.32-7.45) L 10/07/18 20:00 ABG pCO2 26 mmHg (35-45) L 10/10/18 04:32 ABG pO2 126 mmHg (85-104) H 10/10/18 04:32 ABG HCO3 18 mEq/L (21-27) L 10/10/18 04:32 ABG Total CO2 19 mEq/L (20-26) L 10/10/18 04:32 ABG O2 Saturation 99 % (95-98) H 10/10/18 04:32 ABG Base Excess -4 mEq/L (-2 to 3) L 10/10/18 04:32 Sodium 147 mEq/L (136-145) H 10/12/18 06:04 Potassium 3.3 mEq/L (3.5-5.1) L 10/10/18 13:05 Chloride 111 mEq/L (98-107) H 10/12/18 06:04 Carbon Dioxide 33 mEq/L (23-29) H 10/14/18 05:00 BUN 23 mg/dL (6-20) H 10/14/18 05:00 Creatinine 1.35 mg/dL (0.70-1.30) H 10/13/18 04:05 Est GFR ( Amer) 55 (> 60) L 10/10/18 13:05 Est GFR (Non-Af Amer) 59 (> 60) L 10/14/18 05:00 BUN/Creatinine Ratio 27 (6-26) H 10/12/18 06:04 Glucose 110 mg/dL (70-105) H 10/13/18 04:05 POC Glucose 107 mg/dL (70-99) H 10/13/18 17:28 Calculated Osmolality 301 (280-300) H 10/13/18 04:05 Lactic Acid 3.3 mmol/L (0.5-2.2) H 10/09/18 20:05 Calcium 8.4 mg/dL (8.6-10.3) L 10/10/18 13:05 Venous Ioniz Calcium 1.09 mmol/L (1.15-1.35) L 10/10/18 18:44 Phosphorus 5.5 mg/dL (2.7-4.5) H 10/14/18 05:00 Total Bilirubin 2.1 mg/dL (0.3-1.0) H 10/07/18 13:28 AST 229 Units/L (13-39) H 10/07/18 13:28 ALT 64 Units/L (7-52) H 10/07/18 13:28 B-Natriuretic Peptide 1124 pg/mL (Less than 100) H 10/09/18 20:05 Serum Total Protein 5.9 g/dL (6.4-8.9) L 10/07/18 13:28 Urine Color Red (Yellow) A 10/08/18 14:26 Urine Clarity Turbid (Clear) A 10/08/18 14:26 Ur Specific [place] > 1.030 (1.010-1.025) H 10/08/18 14:26 Urine Protein 100 mg/dL (Neg-Trace) H 10/08/18 14:26 Urine Ketones 15 mg/dL (Negative) H 10/08/18 14:26 Urine Blood Large (Negative) H 10/08/18 14:26 Urine Nitrite Positive (Negative) A 10/08/18 14:26 Urine Bilirubin Moderate (Negative) H 10/08/18 14:26 Ur Leukocyte Esterase Moderate (Negative) H 10/08/18 14:26 Urine Microscopic RBC TNTC per hpf (0-3) H 10/08/18 14:26 Urine Microscopic WBC 50-100 per hpf (0-3) H 10/08/18 14:26 Ur Squamous Epith Cells Many per lpf (None-Few) H 10/08/18 14:26 Granular Casts Few per lpf (None Seen) H 10/08/18 14:26 Ur Culture Indicated? YES (NO) A 10/08/18 14:26 - Microbiology Findings Microbiology Findings: Microbiology, Last 48 Hours 10/07/18 13:28 Blood Culture - Final Peripheral Venipuncture No growth. Final report. 10/07/18 13:28 Blood Culture - Final Peripheral Venipuncture No growth. Final report. - Diagnostic Findings Chest x-ray: report reviewed, image reviewed - Clinical Findings Intake & Output: Intake & Output 10/13/18 10/14/18 10/14/18 23:59 07:59 15:59 Intake Total 340 / 890 460 / 800 340 / 800 Output Total 700 / 1000 300 / 1000 Balance 340 / -390 -240 / -200 40 / -200 Weight 60.1 kg Consult Discharge Plan - Plan Referrals: Bailee Mccain CNP [Advanced Practice Nurse] - 10/22/18 12:45 pm Luis Alberto Lucero CNP [Advanced Practice Nurse] - (Per the Office they will call the patient at home with a follow up appointment) Prescriptions: Rivaroxaban [Xarelto] 20 mg PO DAILY #30 tablet
[2018-10-14] MEDS: predniSONE 20 MG TABLET PO SCH (16:56)
[2018-10-14] MEDS: *HR* Rivaroxaban 10 MG TABLET PO SCH (16:56)
[2018-10-15 03:23] LABS: Basophils % 0.1 %; Eosinophils % 0.1 %; Hematocrit 32.3 % (37.5-50.1); Hemoglobin 10.8 g/dL (12.9-16.9); Lymphocytes # 0.4 K/mcL (0.6-4.6); Lymphocytes % 4.3 %; Mean Corpuscular HGB Conc 33.4 g/dL (31.6-35.5); Mean Corpuscular Hemoglobin 30.9 pg (28.0-33.3); Mean Corpuscular Volume 92.6 fL (83.0-100.0); Mean Platelet Volume 10.7 fL (9.4-12.4); Monocytes % 9.6 %; Neutrophils # 8.7 K/mcL (1.6-8.9); Nucleated Red Blood Cells 0.2 /100 WBC (0); Platelet Count 224 K/mcL (140-400); Red Blood Count 3.49 M/mcL (4.19-5.50); Red Cell Distribution Width 14.3 % (11.5-14.5); Segmented Neutrophils % 84.9 %; White Blood Count 10.2 K/mcL (4.3-11.1)
[2018-10-15] MEDS: Ipratropium/Albuterol Neb 3 ML IH SCH ×4 (03:55→22:06)
[2018-10-15] MEDS: Piperacillin/Tazobactam 3.375 GM in 0.9 % Sodium Chloride Mini Bag 100 ML IVPB SCH ×3 (05:15→20:40)
[2018-10-15 05:48] LABS: BUN/Creatinine Ratio 20 (6-26); Blood Urea Nitrogen 23 mg/dL (6-20); Calcium 8.6 mg/dL (8.6-10.3); Carbon Dioxide 29 mEq/L (23-29); Chloride 100 mEq/L (98-107); Glucose 178 mg/dL (70-105); Magnesium 2.1 mg/dL (1.6-2.6); Osmolality,Calculated 292 (280-300); Potassium 4.2 mEq/L (3.5-5.1); Sodium 137 mEq/L (136-145); eGFR For African Americans > 60 (> 60); eGFR For Non-African Americans > 60 (> 60)
--- NOTE | 2018-10-15 08:03 | Pulmonology Progress Note ---
Date of Encounter: 10/15/18 Time of Encounter: 08:03 Assessment and Plan (1) Acute respiratory failure with hypoxia Current Visit: Yes Status: Acute This is multifactorial including hydrostatic pulmonary edema COPD exacerbation and possibly pneumonia. Patient continues to improve and can have weaning of FiO2 to keep saturation greater than 88% at all times to run 92%. He will need walking pulse oximetry prior to discharge to evaluate for O2 requirement he will benefit from incentive spirometry out of bed to chair and ambulation as tolerated and this should help mitigate the effects of the VQ mismatching from atelectasis (2) COPD exacerbation Current Visit: Yes Status: Acute Continue schedule bronchodilators He is on day 2/5 burst of prednisone for COPD exacerbation he seems to respond this clinically Recommend outpatient follow-up with pulmonary to establish care (3) Acute systolic CHF (congestive heart failure), NYHA class 3 Current Visit: Yes Status: Acute Cardiology following would continue to diurese patient as tolerated by blood pressure and renal function (4) Tobacco abuse Current Visit: Yes Status: Acute Reinforced the need to remain tobacco free the time of discharge Pulmonary will sign off please call with any questions with a forward to following with the patient in clinic Do not hesitate to call me with any questions or concerns Justin Strong [phone] Subjective Principal diagnosis: Cardiac arrest Interval history: Patient is sitting up in bed says he is feeling better and continues to improve he has been D escalated down to nasal cannula 5 L O2 with saturation in the mid 90s he denies any complaints today. He is anxious to be discharged from the hospital Objective PUL Vital signs: Last Vital Signs Temp 98.9 F 10/15/18 03:11 Pulse 77 10/15/18 03:11 Resp 18 10/15/18 03:56 BP 98/66 10/15/18 03:11 Pulse Ox 99 10/15/18 03:56 General appearance: no acute distress Eyes: nonicteric Effort: normal Auscultation: bilateral: clear Cardiovascular: regular rate and rhythm Gastrointestinal: soft, non-tender Integumentary: normal Extremities: no clubbing Musculoskeletal: no deformities normal mental status, non-focal exam mood appropriate Results - Laboratory Findings CBC and BMP: 10/15/18 03:00 10/15/18 05:10 ABG ABG pH 7.45 pH Units (7.32-7.45) 10/10/18 04:32 ABG pCO2 26 mmHg (35-45) L 10/10/18 04:32 ABG pO2 126 mmHg (85-104) H 10/10/18 04:32 ABG O2 Saturation 99 % (95-98) H 10/10/18 04:32 PT/INR, D-dimer PT 14.5 Seconds (9.4-12.1) H 10/10/18 10:09 Abnormal lab findings: Abnormal lab results WBC 11.3 K/mcL (4.3-11.1) H 10/14/18 05:00 RBC 3.49 M/mcL (4.19-5.50) L 10/15/18 03:00 Hgb 10.8 g/dL (12.9-16.9) L 10/15/18 03:00 Hct 32.3 % (37.5-50.1) L 10/15/18 03:00 MCHC 31.4 g/dL (31.6-35.5) L 10/07/18 13:28 RDW 14.9 % (11.5-14.5) H 10/13/18 10:58 Neutrophils # 10.5 K/mcL (1.6-8.9) H 10/13/18 10:58 Lymphocytes # 0.4 K/mcL (0.6-4.6) L 10/15/18 03:00 Monocytes # 1.7 K/mcL (0.0-1.3) H 10/13/18 10:58 Nucleated RBCs/100 WBC 0.2 /100 WBC (0) H 10/15/18 03:00 PT 14.5 Seconds (9.4-12.1) H 10/10/18 10:09 APTT 41.6 Seconds (26.0-36.0) H 10/09/18 00:00 Heparin Anti-Xa, Unfract 0.18 IU/mL (0.30-0.70) L 10/11/18 04:40 ABG pH 7.28 pH Units (7.32-7.45) L 10/07/18 20:00 ABG pCO2 26 mmHg (35-45) L 10/10/18 04:32 ABG pO2 126 mmHg (85-104) H 10/10/18 04:32 ABG HCO3 18 mEq/L (21-27) L 10/10/18 04:32 ABG Total CO2 19 mEq/L (20-26) L 10/10/18 04:32 ABG O2 Saturation 99 % (95-98) H 10/10/18 04:32 ABG Base Excess -4 mEq/L (-2 to 3) L 10/10/18 04:32 Sodium 147 mEq/L (136-145) H 10/12/18 06:04 Potassium 3.3 mEq/L (3.5-5.1) L 10/10/18 13:05 Chloride 111 mEq/L (98-107) H 10/12/18 06:04 Carbon Dioxide 33 mEq/L (23-29) H 10/14/18 05:00 BUN 23 mg/dL (6-20) H 10/15/18 05:10 Creatinine 1.35 mg/dL (0.70-1.30) H 10/13/18 04:05 Est GFR ( Amer) 55 (> 60) L 10/10/18 13:05 Est GFR (Non-Af Amer) 59 (> 60) L 10/14/18 05:00 BUN/Creatinine Ratio 27 (6-26) H 10/12/18 06:04 Glucose 178 mg/dL (70-105) H 10/15/18 05:10 POC Glucose 107 mg/dL (70-99) H 10/13/18 17:28 Calculated Osmolality 301 (280-300) H 10/13/18 04:05 Lactic Acid 3.3 mmol/L (0.5-2.2) H 10/09/18 20:05 Calcium 8.4 mg/dL (8.6-10.3) L 10/10/18 13:05 Venous Ioniz Calcium 1.09 mmol/L (1.15-1.35) L 10/10/18 18:44 Phosphorus 5.5 mg/dL (2.7-4.5) H 10/14/18 05:00 Total Bilirubin 2.1 mg/dL (0.3-1.0) H 10/07/18 13:28 AST 229 Units/L (13-39) H 10/07/18 13:28 ALT 64 Units/L (7-52) H 10/07/18 13:28 B-Natriuretic Peptide 1124 pg/mL (Less than 100) H 10/09/18 20:05 Serum Total Protein 5.9 g/dL (6.4-8.9) L 10/07/18 13:28 Urine Color Red (Yellow) A 10/08/18 14:26 Urine Clarity Turbid (Clear) A 10/08/18 14:26 Ur Specific [place] > 1.030 (1.010-1.025) H 10/08/18 14:26 Urine Protein 100 mg/dL (Neg-Trace) H 10/08/18 14:26 Urine Ketones 15 mg/dL (Negative) H 10/08/18 14:26 Urine Blood Large (Negative) H 10/08/18 14:26 Urine Nitrite Positive (Negative) A 10/08/18 14:26 Urine Bilirubin Moderate (Negative) H 10/08/18 14:26 Ur Leukocyte Esterase Moderate (Negative) H 10/08/18 14:26 Urine Microscopic RBC TNTC per hpf (0-3) H 10/08/18 14:26 Urine Microscopic WBC 50-100 per hpf (0-3) H 10/08/18 14:26 Ur Squamous Epith Cells Many per lpf (None-Few) H 10/08/18 14:26 Granular Casts Few per lpf (None Seen) H 10/08/18 14:26 Ur Culture Indicated? YES (NO) A 10/08/18 14:26 - Clinical Findings Intake & Output: Intake & Output 10/14/18 10/15/18 10/15/18 23:59 07:59 15:59 Intake Total 100 / 900 100 / 100 Output Total 600 / 1600 200 / 200 Balance -500 / -700 -100 / -100 Weight 61 kg Consult Discharge Plan - Plan Referrals: Bailee Mccain CNP [Advanced Practice Nurse] - 10/22/18 12:45 pm Luis Alberto Lucero CNP [Advanced Practice Nurse] - (Per the Office they will call the patient at home with a follow up appointment) Prescriptions: Rivaroxaban [Xarelto] 20 mg PO DAILY #30 tablet
[2018-10-15] MEDS: predniSONE 20 MG TABLET PO SCH (08:37)
[2018-10-15] MEDS: Nystatin SUSP 5 ML UD.LIQ PO SCH ×4 (08:38→20:38)
[2018-10-15] MEDS: Aspirin 81 MG TAB.CHEW PO SCH (08:38)
[2018-10-15] MEDS: Metoprolol XL (24 HR) Succ 25 MG TAB.ER.24H PO SCH (08:38)
[2018-10-15] MEDS: *HR* Amiodarone 200 MG TABLET PO SCH (08:38)
[2018-10-15] MEDS: Nicotine 21 MG PATCH.TD24 TD SCH (08:38)
[2018-10-15] MEDS: Insulin LISPRO 300 UNITS/3 ML VIAL SQ SCH ×4 (08:39→20:39)
[2018-10-15] MEDS: Pantoprazole 40 MG VIAL IVP SCH (08:39)
[2018-10-15] MEDS: Furosemide 20 MG/2 ML VIAL IVP SCH ×2 (08:39→20:39)
[2018-10-15] MEDS: Budesonide/Formoterol 160/4.5 1 PUFF INH IH SCH ×2 (10:17→22:06)
--- NOTE | 2018-10-15 12:29 | Internal Med Progress Note ---
Hospitalist Progress Note - Encounter Date of Encounter: 10/15/18 Time of Encounter: 09:00 - Subjective Interval History: Patient was seen at bedside. Feeling better than yesterday. Denies chest pain. He is down to 2 L of oxygen saturation and high 90s. Denies lower extremity edema. Denies fever, chills, triggers. Still has cough with productive sputum but has been decreasing. No other overnight events. - Exam Vitals: Temp Pulse Resp BP Pulse Ox 98.9 F 79 18 94/66 90 10/15/18 11:48 10/15/18 11:48 10/15/18 11:48 10/15/18 11:48 10/15/18 11:48 Exam: General: Alert and oriented, no physical distress, able to follow commands. Respiratory: Normal vesicular breathing, no added sounds, breathing equal in both sides. CVS: Normal heart sounds, no murmurs, no edema. Extremities: No peripheral edema, peripheral pulses intact. Lymph nodes: No lymphadenopathy Gastrointestinal: Soft, nontender abdomen, normal abdominal sounds. No distention noted. Genitourinary: No paravertebral tenderness. Neurological: Alert and oriented. No focal deficits. Cranial nerves II-XII intact. - Assessment and Plan (1) Cardiopulmonary arrest Current Visit: No Status: Inactive Assessment and Plan: Patient had V. fib arrest on 10/07. 5 rounds of CPR and resuscitated. Had anterior STEMI on EKG. -HDS now (2) Acute respiratory failure with hypoxia Current Visit: Yes Status: Acute Assessment and Plan: Resolving, on 2 L with saturation and high 90s. Etiologies include pneumonia vs fluid overload as per CXR repeated 10/13. Continue Lasix. Continue DuoNeb, Symbicort, Continue Zosyn for possible PNA -Stroids added by pulm with the concerns for COPD regan. -Improving overall (3) Acute systolic CHF (congestive heart failure), NYHA class 3 Current Visit: Yes Status: Acute Assessment and Plan: Acute systolic congestive heart failure secondary to MS. Echo with ejection fraction of 15%. Currently on Lasix. Dose adjustments per cardiology. Monitor input and output, daily weights. -Metoprolol added by cardiolgoy. -Not on DANIS-I, spironolactone 2/2 kidney functions -Will neeed to be discharged on life vest (4) Atrial fibrillation with RVR Current Visit: Yes Status: Inactive Assessment and Plan: Diagnosed with atrial fibrillation following the MS. Was started on amiodarone drip, currently on 200 mg twice a day amiodarone Beta justine added, tolerating it well CHADVAc of 3, will need AC indefinitely. -On xarelto. (5) STEMI (ST elevation myocardial infarction) Current Visit: Yes Status: Inactive (6) Anxiety Current Visit: Yes Status: Acute (7) Electrolyte abnormality Current Visit: Yes Status: Acute Assessment and Plan: Electrolyte replacemetn as per protocol. -Repat levels every 4AM (8) Tobacco abuse Current Visit: Yes Status: Acute Assessment and Plan: Counseled to stop smoking. Nicotine patch ordered. Counseled about the adverse effect of smoking. - Summary of Assessment and Plan Summary of Assessment and Plan: Waiting for the placement to the SNF. - Time Spent with Patient Total time spent is greater than 50% in coordination of care (as documented) at patient's floor/unit and/or counseling patient: Internal Medicine: Result - Labs CBC & Chem 7: 10/15/18 03:00 10/15/18 05:10 Labs: Short CBC 10/15/18 Range/Units 03:00 WBC 10.2 (4.3-11.1) K/mcL Hgb 10.8 L (12.9-16.9) g/dL Hct 32.3 L (37.5-50.1) % Plt Count 224 (140-400) K/mcL Neutrophils # 8.7 (1.6-8.9) K/mcL BMP 10/15/18 05:10 Sodium 137 Potassium 4.2 Chloride 100 Carbon Dioxide 29 BUN 23 H Creatinine 1.13 Glucose 178 H Calcium 8.6 - ABG Interpretation ABG results: ABG ABG pH 7.45 pH Units (7.32-7.45) 10/10/18 04:32 ABG pCO2 26 mmHg (35-45) L 10/10/18 04:32 ABG pO2 126 mmHg (85-104) H 10/10/18 04:32 ABG O2 Saturation 99 % (95-98) H 10/10/18 04:32 PT/INR, D-dimer PT 14.5 Seconds (9.4-12.1) H 10/10/18 10:09 Consult Discharge Plan - Plan Referrals: Bailee Mccain CNP [Advanced Practice Nurse] - 10/22/18 12:45 pm Luis Alberto Lucero CNP [Advanced Practice Nurse] - (Per the Office they will call the patient at home with a follow up appointment) Prescriptions: Rivaroxaban [Xarelto] 20 mg PO DAILY #30 tablet (5) STEMI (ST elevation myocardial infarction) Qualifiers: Involved coronary artery: LAD coronary artery Qualified Code(s): I21.02 - ST elevation (STEMI) myocardial infarction involving left anterior descending coronary artery
--- NOTE | 2018-10-15 13:52 | Cardiology Progress Note ---
Date of Encounter: 10/15/18 Time of Encounter: 13:47 Assessment and Plan (1) Acute systolic CHF (congestive heart failure), NYHA class 3 Current Visit: Yes Status: Acute Patient found to have acute systolic CHF with NM. EF 15%. CXR with possible, PNA VS edema. He is currently being diuresed. On IV antibiotics for PNA. APpreciate pulmonology input. Stroid taper started for COPD. Looks better today and on room air on my exam. Continue lasix and convert to oral lasix 20 mg BID at discharge. On toprol Xl continue as tolerated. No magdalene due to kidney function, will start if SCr remains normal and b/p allows. Life vest at discharge, recommended for at least 45 days for re-evaluation of LV function. (2) STEMI (ST elevation myocardial infarction) Current Visit: Yes Status: Inactive Patient presented to [facility] as witnessed cardiac arrest. ECG found to have STEMI. No prior reported CV history. [facility] 10/07/18: s/p PTCA/CHANA to mLAD TTE 10/07/18: EF 15% with severe global LV systolic dysfunction, moderate to severe LVDD, no LV thrombus, mild biatrial enlargement, mild TR, mild MN Continue uninterrupted (asa and plavix). Stressed importance of medication compliance with patient and he voices understanding although he is confused at times. Recommend ECF placement as patient is confused and homeless. Concern for non-compliance due to poor memory. Family would like to take him to [place]. Do not recommend travel for at least 30 days. Continue statin and beta justine. He is tolerating beta justine today. No ACEi/ARB due to hypotension. NSVT noted 10/08/18 (within 24 hr post PCI) no re-occurrence seen. He is tolerating beta justine. Plan to discontinue amiodarone at discharge if he is tolerating bb. Cardiac rehab ordered. Out-pt f/u will be coordinated. Cardiology will now sign off. Please call with questions. Qualifiers: Involved coronary artery: LAD coronary artery Qualified Code(s): I21.02 - ST elevation (STEMI) myocardial infarction involving left anterior descending coronary artery (3) Cardiac arrest Current Visit: Yes Status: Acute Suspected v-fib arrest; s/p mutiple (5+) rounds of CPR. Anterior STEMI on ECG once ROSC achieved. S/p PTCA and CHANA to mLAD. Extubated 10/09/18, now on room air. S/p hypothermia protocal. On amio. Plan to discontinue amiodarone at discharge if tolerating bb. (4) Atrial fibrillation with RVR Current Visit: Yes Status: Inactive Afib with RVR 10/08/18, now NSR. Unclear chronicity. Discussed with Dr. Bellamy, if he tolerates beta justine can discontinue amiodarone at discharge. CHA2Ds Vasc=3 (CAD, CHF, reported hx of HTN) Will need long-term AC prior to discharge discussed with patient. Placed on Xarelto and tolerating. His co- pays $0. Hgb stable. (5) Chest pain Current Visit: No Status: Inactive Reproducible chest pain after CPR. Continue to monitor. Qualifiers: Chest pain type: unspecified Qualified Code(s): R07.9 - Chest pain, unspecified Discussion w patient/family: The assessment and plan as outlined above was discussed with the patient and/or family members who expressed understanding and agreement. All questions were answered. Thank you for involving us in the care of your patient. Please call with any questions. Subjective Principal diagnosis: Cardiac arrest Interval history: Patient less confused. Confusion comes and goes. he was weaned off of oxygen and is on room air. Moted that he may need oxygen at night for hypoxia. Patient panning to go to ECF. Objective Vital Signs, Last 4 Hours Temp Pulse Resp BP Pulse Ox 10/15/18 11:48 98.9 F 79 18 94/66 90 10/15/18 10:17 16 100 General: Conversant, No Apparent Distress HEENT: Atraumatic, Normocephaly, Mucus Membranes Moist Neck: No JVD, Normal carotid pulses Cardiac: Reg Rate and Rhythm, Normal S1 and S2, No Murmur Lungs: Normal Breath Sounds, No Wheeze, Rales, Rhonchi Neuro: Alert and responsive, No focal deficits noted Abdomen: Soft, Non-Tender Skin: No rashes noted on visualized skin Musculoskeletal: No Chest Wall Tenderness Extremities: No Clubbing, No Cyanosis, No Edema, Normal Pulses Results 10/15/18 03:00 10/15/18 05:10 Lab Results 10/15/18 10/15/18 03:00 05:10 WBC 10.2 Hgb 10.8 L Hct 32.3 L Plt Count 224 Sodium 137 Potassium 4.2 Chloride 100 Carbon Dioxide 29 BUN 23 H Creatinine 1.13 Glucose 178 H Calcium 8.6 Magnesium 2.1 - Imaging and Cardiology Echo: report reviewed - EKG Interpretation EKG results cardiology: personally reviewed Consult Discharge Plan - Plan Referrals: Bailee Mccain CNP [Advanced Practice Nurse] - 10/22/18 12:45 pm Luis Alberto Lucero CNP [Advanced Practice Nurse] - (Per the Office they will call t he patient at home with a follow up appointment) Prescriptions: Rivaroxaban [Xarelto] 20 mg PO DAILY #30 tablet
[2018-10-15] MEDS: *HR* Rivaroxaban 10 MG TABLET PO SCH (16:22)
[2018-10-16] MEDS ORDERED: Haloperidol Lactate 5 MG/ML VIAL IVP PRN (03:33)
[2018-10-16] MEDS ORDERED: D5% in Water 1,000 ML IVC PRN (03:33)
[2018-10-16] MEDS ORDERED: *HR* Dextrose 50 % in Water (Syg) 50 ML SYRINGE IVP PRN (03:33)
[2018-10-16] MEDS ORDERED: Dextrose Gel 15 GM/37.5 ML TUBE PO PRN ×2 (03:33)
[2018-10-16] MEDS ORDERED: Naloxone 0.4 MG/ML INJ IVP PRN (03:33)
[2018-10-16] MEDS: Ipratropium/Albuterol Neb 3 ML IH SCH ×4 (03:59→21:51)
[2018-10-16] MEDS: Piperacillin/Tazobactam 3.375 GM in 0.9 % Sodium Chloride Mini Bag 100 ML IVPB SCH ×3 (06:34→20:11)
[2018-10-16] MEDS: Pantoprazole 40 MG VIAL IVP SCH (06:35)
[2018-10-16 07:17] LABS: Basophils % 0.1 %; Eosinophils # 0.2 K/mcL (0.0-0.6); Eosinophils % 1.4 %; Hematocrit 31.1 % (37.5-50.1); Hemoglobin 10.5 g/dL (12.9-16.9); Immature Granulocytes % 0.7 % (0-4); Lymphocytes # 1.5 K/mcL (0.6-4.6); Lymphocytes % 10.3 %; Mean Corpuscular HGB Conc 33.8 g/dL (31.6-35.5); Mean Corpuscular Hemoglobin 30.4 pg (28.0-33.3); Mean Corpuscular Volume 90.1 fL (83.0-100.0); Mean Platelet Volume 10.5 fL (9.4-12.4); Monocytes # 1.9 K/mcL (0.0-1.3); Monocytes % 12.8 %; Platelet Count 286 K/mcL (140-400); Red Blood Count 3.45 M/mcL (4.19-5.50); Red Cell Distribution Width 14.2 % (11.5-14.5); Segmented Neutrophils % 74.7 %; White Blood Count 14.7 K/mcL (4.3-11.1)
[2018-10-16 07:35] LABS: BUN/Creatinine Ratio 18 (6-26); Blood Urea Nitrogen 20 mg/dL (6-20); Calcium 8.7 mg/dL (8.6-10.3); Carbon Dioxide 31 mEq/L (23-29); Chloride 97 mEq/L (98-107); Glucose 113 mg/dL (70-105); Magnesium 1.9 mg/dL (1.6-2.6); Osmolality,Calculated 285 (280-300); Potassium 3.7 mEq/L (3.5-5.1); Sodium 136 mEq/L (136-145); eGFR For African Americans > 60 (> 60); eGFR For Non-African Americans > 60 (> 60)
[2018-10-16] MEDS: Insulin LISPRO 300 UNITS/3 ML VIAL SQ SCH ×4 (08:02→20:09)
[2018-10-16] MEDS ORDERED: *HR* Amiodarone 200 MG TABLET PO SCH (09:00)
[2018-10-16] MEDS: predniSONE 20 MG TABLET PO SCH (09:39)
[2018-10-16] MEDS: Aspirin 81 MG TAB.CHEW PO SCH (09:39)
[2018-10-16] MEDS: Furosemide 20 MG/2 ML VIAL IVP SCH ×2 (09:39→16:54)
[2018-10-16] MEDS: *HR* Amiodarone 200 MG TABLET PO SCH (09:39)
[2018-10-16] MEDS: Nicotine 21 MG PATCH.TD24 TD SCH (09:40)
[2018-10-16] MEDS: Nystatin SUSP 5 ML UD.LIQ PO SCH ×4 (09:45→20:11)
[2018-10-16] MEDS: Metoprolol XL (24 HR) Succ 25 MG TAB.ER.24H PO SCH (09:48)
[2018-10-16] MEDS: Budesonide/Formoterol 160/4.5 1 PUFF INH IH SCH ×2 (09:59→21:51)
--- NOTE | 2018-10-16 11:56 | Internal Med Progress Note ---
Hospitalist Progress Note - Encounter Date of Encounter: 10/16/18 Time of Encounter: 09:00 - Subjective Interval History: Patient seen at bedside. Denies chest pain, shortness of breath, palpitations. Denies fever, chills, rigors. Awaiting placement. No acute event overnight. - Exam Vitals: Temp Pulse Resp BP Pulse Ox 98.6 F 73 14 106/75 94 10/16/18 11:10 10/16/18 11:10 10/16/18 11:10 10/16/18 11:10 10/16/18 11:10 Exam: General: Alert and oriented, no physical distress, able to follow commands. Respiratory: Normal vesicular breathing, no added sounds, breathing equal in both sides. CVS: Normal heart sounds, no murmurs, no edema. Extremities: No peripheral edema, peripheral pulses intact. Lymph nodes: No lymphadenopathy Gastrointestinal: Soft, nontender abdomen, normal abdominal sounds. No distention noted. Genitourinary: No paravertebral tenderness. Neurological: Alert and oriented. No focal deficits. Cranial nerves II-XII intact. - Assessment and Plan (1) Cardiopulmonary arrest Current Visit: No Status: Inactive Assessment and Plan: Patient had V. fib arrest on 10/07. 5 rounds of CPR and resuscitated. Had anterior STEMI on EKG. -HDS now Awaiting placement. (2) Acute respiratory failure with hypoxia Current Visit: Yes Status: Acute Assessment and Plan: Resolving, on room air at this point. Etiologies include pneumonia vs fluid overload as per CXR repeated 10/13. Continue Lasix at the current dose, creatinine is still improving with IV Lasix. Continue DuoNeb, Symbicort, Continue Zosyn for possible PNA -Stroids added by pulm with the concerns for COPD regan. -Improving overall (3) Acute systolic CHF (congestive heart failure), NYHA class 3 Current Visit: Yes Status: Acute Assessment and Plan: Acute systolic congestive heart failure secondary to [place]. Echo with ejection fraction of 15%. Currently on Lasix. Monitor input and output, daily weights. -Metoprolol added by cardiolgoy. -Not on DANIS-I, spironolactone 2/2 risk of hypotension -Currently on LifeVest. Will neeed to be discharged on life vest (4) Atrial fibrillation with RVR Current Visit: Yes Status: Inactive Assessment and Plan: Diagnosed with atrial fibrillation following the [place]. Was started on amiodarone drip, currently on 200 mg twice a day amiodarone Beta justine added, tolerating it well CHADVAc of 3, will need AC indefinitely. -On xarelto. (5) STEMI (ST elevation myocardial infarction) Current Visit: Yes Status: Inactive Assessment and Plan: STEMI leading to cardiac arrest. [facility] 10/07/18: s/p PTCA/CHANA to mLAD -Echo showed ejection fraction of 15% with severe global left ventricular systolic dysfunction, moderate to severe LVEDD, normal LV thrombus, mild TR, mild MA. -Currently on aspirin, Plavix, atorvastatin, beta justine. Will need to continue without interruption. (6) Anxiety Current Visit: Yes Status: Acute Assessment and Plan: -Patient is calmer now. Haldol discontinue (7) Electrolyte abnormality Current Visit: Yes Status: Acute Assessment and Plan: Electrolyte replacemetn as per protocol. -Repat levels every 4AM (8) Tobacco abuse Current Visit: Yes Status: Acute Assessment and Plan: Counseled to stop smoking. Nicotine patch ordered. Counseled about the adverse effect of smoking. (9) Leucocytosis Current Visit: Yes Status: Acute Assessment and Plan: Likely cause of steroids. - Time Spent with Patient Total time spent is greater than 50% in coordination of care (as documented) at patient's floor/unit and/or counseling patient: Internal Medicine: Result - Labs CBC & Chem 7: 10/16/18 06:45 10/16/18 06:45 Labs: Short CBC 10/16/18 Range/Units 06:45 WBC 14.7 H (4.3-11.1) K/mcL Hgb 10.5 L (12.9-16.9) g/dL Hct 31.1 L (37.5-50.1) % Plt Count 286 (140-400) K/mcL Neutrophils # 11.0 H (1.6-8.9) K/mcL BMP 10/16/18 06:45 Sodium 136 Potassium 3.7 Chloride 97 L Carbon Dioxide 31 H BUN 20 Creatinine 1.11 Glucose 113 H Calcium 8.7 - ABG Interpretation ABG results: ABG ABG pH 7.45 pH Units (7.32-7.45) 10/10/18 04:32 ABG pCO2 26 mmHg (35-45) L 10/10/18 04:32 ABG pO2 126 mmHg (85-104) H 10/10/18 04:32 ABG O2 Saturation 99 % (95-98) H 10/10/18 04:32 PT/INR, D-dimer PT 14.5 Seconds (9.4-12.1) H 10/10/18 10:09 Consult Discharge Plan - Plan Referrals: Bailee Mccain CNP [Advanced Practice Nurse] - 10/22/18 12:45 pm Luis Alberto Lucero CNP [Advanced Practice Nurse] - (Per the Office they will call the patient at home with a follow up appointment) Prescriptions: Rivaroxaban [Xarelto] 20 mg PO DAILY #30 tablet (5) STEMI (ST elevation myocardial infarction) Qualifiers: Involved coronary artery: LAD coronary artery Qualified Code(s): I21.02 - ST elevation (STEMI) myocardial infarction involving left anterior descending coronary artery (9) Leucocytosis Qualifiers: Leukocytosis type: unspecified Qualified Code(s): D72.829 - Elevated white blood cell count, unspecified
[2018-10-16] MEDS: *HR* Rivaroxaban 10 MG TABLET PO SCH (16:54)
[2018-10-17] MEDS: Ipratropium/Albuterol Neb 3 ML IH SCH ×4 (03:54→22:19)
[2018-10-17 03:56] LABS: Basophils % 0.1 %; Eosinophils # 0.1 K/mcL (0.0-0.6); Eosinophils % 0.4 %; Hematocrit 31.6 % (37.5-50.1); Hemoglobin 10.5 g/dL (12.9-16.9); Immature Granulocytes % 0.7 % (0-4); Lymphocytes # 0.9 K/mcL (0.6-4.6); Lymphocytes % 5.7 %; Mean Corpuscular HGB Conc 33.2 g/dL (31.6-35.5); Mean Corpuscular Hemoglobin 29.8 pg (28.0-33.3); Mean Corpuscular Volume 89.8 fL (83.0-100.0); Mean Platelet Volume 10.2 fL (9.4-12.4); Monocytes # 1.8 K/mcL (0.0-1.3); Monocytes % 11.3 %; Neutrophils # 12.9 K/mcL (1.6-8.9); Platelet Count 309 K/mcL (140-400); Red Blood Count 3.52 M/mcL (4.19-5.50); Red Cell Distribution Width 14.3 % (11.5-14.5); Segmented Neutrophils % 81.8 %; White Blood Count 15.7 K/mcL (4.3-11.1)
[2018-10-17 04:14] LABS: BUN/Creatinine Ratio 19 (6-26); Blood Urea Nitrogen 19 mg/dL (6-20); Calcium 8.2 mg/dL (8.6-10.3); Carbon Dioxide 30 mEq/L (23-29); Chloride 97 mEq/L (98-107); Glucose 122 mg/dL (70-105); Magnesium 1.9 mg/dL (1.6-2.6); Osmolality,Calculated 282 (280-300); Potassium 4.3 mEq/L (3.5-5.1); Sodium 134 mEq/L (136-145); eGFR For African Americans > 60 (> 60); eGFR For Non-African Americans > 60 (> 60)
[2018-10-17] MEDS: Pantoprazole 40 MG VIAL IVP SCH (05:43)
[2018-10-17] MEDS: Piperacillin/Tazobactam 3.375 GM in 0.9 % Sodium Chloride Mini Bag 100 ML IVPB SCH ×2 (05:43→13:58)
[2018-10-17] MEDS: Aspirin 81 MG TAB.CHEW PO SCH (09:22)
[2018-10-17] MEDS: predniSONE 20 MG TABLET PO SCH (09:22)
[2018-10-17] MEDS: Nystatin SUSP 5 ML UD.LIQ PO SCH ×4 (09:22→21:40)
[2018-10-17] MEDS: Furosemide 20 MG/2 ML VIAL IVP SCH ×2 (09:22→18:22)
[2018-10-17] MEDS: *HR* Amiodarone 200 MG TABLET PO SCH (09:22)
[2018-10-17] MEDS: Metoprolol XL (24 HR) Succ 25 MG TAB.ER.24H PO SCH (09:22)
[2018-10-17] MEDS: Insulin LISPRO 300 UNITS/3 ML VIAL SQ SCH ×4 (09:23→21:41)
[2018-10-17] MEDS: Nicotine 21 MG PATCH.TD24 TD SCH (09:23)
[2018-10-17] MEDS: Budesonide/Formoterol 160/4.5 1 PUFF INH IH SCH ×2 (10:53→22:25)
--- NOTE | 2018-10-17 16:45 | Internal Med Progress Note ---
Hospitalist Progress Note - Encounter Date of Encounter: 10/17/18 Time of Encounter: 09:45 - Subjective Interval History: Seen at bedside, no acute cmplaints today. Denies SOB, endorses mild chest pain on right side. No overngith evetns. No fever, chills. - Exam Vitals: Temp Pulse Resp BP Pulse Ox 98.4 F 80 12 95/75 97 10/17/18 16:06 10/17/18 16:06 10/17/18 16:06 10/17/18 16:06 10/17/18 16:06 Exam: General: Alert and oriented, no physical distress, able to follow commands. Respiratory: Normal vesicular breathing, no added sounds, breathing equal in both sides. CVS: Normal heart sounds, no murmurs, no edema. Extremities: No peripheral edema, peripheral pulses intact. Lymph nodes: No lymphadenopathy Gastrointestinal: Soft, nontender abdomen, normal abdominal sounds. No distention noted. Genitourinary: No paravertebral tenderness. Neurological: Alert and oriented. No focal deficits. Cranial nerves II-XII intact. - Assessment and Plan (1) Cardiopulmonary arrest Current Visit: No Status: Inactive Assessment and Plan: Patient had V. fib arrest on 10/07. 5 rounds of CPR and resuscitated. Had anterior STEMI on EKG. -HDS now Awaiting placement. (2) Acute respiratory failure with hypoxia Current Visit: Yes Status: Acute Assessment and Plan: Resolving, on room air at this point. Etiologies include pneumonia vs fluid overload as per CXR repeated 10/13. Continue Lasix at the current dose, creatinine is still improving with IV Lasix. Continue DuoNeb, Symbicort, GOt 10 days of zosyn hold now -Stroids added by pulm with the concerns for COPD regan. -Improving overall (3) Acute systolic CHF (congestive heart failure), NYHA class 3 Current Visit: Yes Status: Acute Assessment and Plan: Acute systolic congestive heart failure secondary to [place]. Echo with ejection fraction of 15%. Currently on Lasix. Monitor input and output, daily weights. -Metoprolol added by cardiolgoy. -Not on DANIS-I, spironolactone 2/2 risk of hypotension -Currently on LifeVest. Will neeed to be discharged on life vest (4) Atrial fibrillation with RVR Current Visit: Yes Status: Inactive Assessment and Plan: Diagnosed with atrial fibrillation following the [place]. Was started on amiodarone drip, currently on 200 mg twice a day amiodarone Beta justine added, tolerating it well CHADVAc of 3, will need AC indefinitely. -On xarelto. (5) STEMI (ST elevation myocardial infarction) Current Visit: Yes Status: Inactive Assessment and Plan: STEMI leading to cardiac arrest. [facility] 10/07/18: s/p PTCA/CHANA to mLAD -Echo showed ejection fraction of 15% with severe global left ventricular systolic dysfunction, moderate to severe LVEDD, normal LV thrombus, mild TR, mild CT. -Currently on aspirin, Plavix, atorvastatin, beta justine. Will need to continue without interruption. (6) Electrolyte abnormality Current Visit: Yes Status: Acute Assessment and Plan: Electrolyte replacemetn as per protocol. -Repat levels every 4AM (7) Tobacco abuse Current Visit: Yes Status: Acute Assessment and Plan: Counseled to stop smoking. Nicotine patch ordered. Counseled about the adverse effect of smoking. (8) Leucocytosis Current Visit: Yes Status: Acute Assessment and Plan: Likely cause of steroids. - Summary of Assessment and Plan Summary of Assessment and Plan: Stable fro discharge from medical point of view. Awaiting placement - Time Spent with Patient Total time spent is greater than 50% in coordination of care (as documented) at patient's floor/unit and/or counseling patient: Internal Medicine: Result - Labs CBC & Chem 7: 10/17/18 03:43 10/17/18 03:43 Labs: Short CBC 10/17/18 Range/Units 03:43 WBC 15.7 H (4.3-11.1) K/mcL Hgb 10.5 L (12.9-16.9) g/dL Hct 31.6 L (37.5-50.1) % Plt Count 309 (140-400) K/mcL Neutrophils # 12.9 H (1.6-8.9) K/mcL BMP 10/17/18 03:43 Sodium 134 L Potassium 4.3 Chloride 97 L Carbon Dioxide 30 H BUN 19 Creatinine 1.01 Glucose 122 H Calcium 8.2 L - ABG Interpretation ABG results: ABG ABG pH 7.45 pH Units (7.32-7.45) 10/10/18 04:32 ABG pCO2 26 mmHg (35-45) L 10/10/18 04:32 ABG pO2 126 mmHg (85-104) H 10/10/18 04:32 ABG O2 Saturation 99 % (95-98) H 10/10/18 04:32 PT/INR, D-dimer PT 14.5 Seconds (9.4-12.1) H 10/10/18 10:09 Consult Discharge Plan - Plan Referrals: Bailee Mccain CNP [Advanced Practice Nurse] - 10/22/18 12:45 pm Luis Alberto Lucero CNP [Advanced Practice Nurse] - (Per the Office they will call the patient at home with a follow up appointment) Prescriptions: Rivaroxaban [Xarelto] 20 mg PO DAILY #30 tablet (5) STEMI (ST elevation myocardial infarction) Qualifiers: Involved coronary artery: LAD coronary artery Qualified Code(s): I21.02 - ST elevation (STEMI) myocardial infarction involving left anterior descending coronary artery (8) Leucocytosis Qualifiers: Leukocytosis type: unspecified Qualified Code(s): D72.829 - Elevated white blood cell count, unspecified
[2018-10-17] MEDS: *HR* Rivaroxaban 10 MG TABLET PO SCH (18:22)
[2018-10-18] MEDS: Ipratropium/Albuterol Neb 3 ML IH SCH ×4 (04:58→22:13)
[2018-10-18 05:21] LABS: BUN/Creatinine Ratio 21 (6-26); Blood Urea Nitrogen 17 mg/dL (6-20); Calcium 8.9 mg/dL (8.6-10.3); Carbon Dioxide 30 mEq/L (23-29); Chloride 97 mEq/L (98-107); Glucose 127 mg/dL (70-105); Osmolality,Calculated 283 (280-300); Potassium 3.7 mEq/L (3.5-5.1); Sodium 135 mEq/L (136-145); eGFR For African Americans > 60 (> 60); eGFR For Non-African Americans > 60 (> 60)
[2018-10-18] MEDS: Pantoprazole 40 MG VIAL IVP SCH (06:22)
[2018-10-18] MEDS: predniSONE 20 MG TABLET PO SCH (08:32)
[2018-10-18] MEDS: Insulin LISPRO 300 UNITS/3 ML VIAL SQ SCH ×4 (08:32→21:01)
[2018-10-18] MEDS: Aspirin 81 MG TAB.CHEW PO SCH (08:32)
[2018-10-18] MEDS: Metoprolol XL (24 HR) Succ 25 MG TAB.ER.24H PO SCH (08:32)
[2018-10-18] MEDS: *HR* Amiodarone 200 MG TABLET PO SCH (08:33)
[2018-10-18] MEDS: Nicotine 21 MG PATCH.TD24 TD SCH (08:33)
[2018-10-18] MEDS: Furosemide 20 MG/2 ML VIAL IVP SCH (08:33)
[2018-10-18] MEDS: Nystatin SUSP 5 ML UD.LIQ PO SCH ×4 (08:33→20:07)
[2018-10-18] MEDS: Budesonide/Formoterol 160/4.5 1 PUFF INH IH SCH ×2 (10:54→22:13)
--- NOTE | 2018-10-18 15:44 | Internal Med Progress Note ---
Hospitalist Progress Note - Encounter Date of Encounter: 10/18/18 Time of Encounter: 09:00 - Subjective Interval History: Patient seen at bedside. Denies chest pain, shortness of breath, palpitations. Denies fever, chills, rigors. No acute event overnight. - Exam Vitals: Temp Pulse Resp BP Pulse Ox 98.5 F 66 14 112/71 100 10/18/18 15:35 10/18/18 15:35 10/18/18 15:35 10/18/18 15:35 10/18/18 15:35 Exam: General: Alert and oriented, no physical distress, able to follow commands. Respiratory: Normal vesicular breathing, no added sounds, breathing equal in both sides. CVS: Normal heart sounds, no murmurs, no edema. Extremities: No peripheral edema, peripheral pulses intact. Lymph nodes: No lymphadenopathy Gastrointestinal: Soft, nontender abdomen, normal abdominal sounds. No distention noted. Genitourinary: No paravertebral tenderness. Neurological: Alert and oriented. No focal deficits. - Assessment and Plan (1) Cardiopulmonary arrest Current Visit: No Status: Inactive Assessment and Plan: Patient had V. fib arrest on 10/07. 5 rounds of CPR and resuscitated. Had anterior STEMI on EKG. -HDS now Awaiting placement. (2) Acute respiratory failure with hypoxia Current Visit: Yes Status: Acute Assessment and Plan: Resolved On room air, saturation hi 90s. Completed treatment for pneumonia. On steroids for COPD. Euvolemic on exam. Continue Lasix (3) Acute systolic CHF (congestive heart failure), NYHA class 3 Current Visit: Yes Status: Acute Assessment and Plan: Acute systolic congestive heart failure secondary to [place]. Echo with ejection fraction of 15%. Currently on Lasix, stopped IV alsix, on 20 mg oral lasxi Monitor input and output, daily weights. -Metoprolol added by cardiolgoy. -Not on DANIS-I, spironolactone 2/2 risk of hypotension -Currently on LifeVest. Will neeed to be discharged on life vest (4) Atrial fibrillation with RVR Current Visit: Yes Status: Inactive Assessment and Plan: Diagnosed with atrial fibrillation following the [place]. Was started on amiodarone drip, currently on 200 mg twice a day amiodarone Beta justine added, tolerating it well CHADVAc of 3, will need AC indefinitely. -On xarelto. (5) STEMI (ST elevation myocardial infarction) Current Visit: Yes Status: Inactive Assessment and Plan: STEMI leading to cardiac arrest. [facility] 10/07/18: s/p PTCA/CHANA to mLAD -Echo showed ejection fraction of 15% with severe global left ventricular systolic dysfunction, moderate to severe LVEDD, normal LV thrombus, mild TR, mild [place]. -Currently on aspirin, Plavix, atorvastatin, beta justine. Will need to continue without interruption. (6) Tobacco abuse Current Visit: Yes Status: Acute Assessment and Plan: Counseled to stop smoking. Nicotine patch ordered. Counseled about the adverse effect of smoking. - Summary of Assessment and Plan Summary of Assessment and Plan: OK to discharge from medical standpoint. Awaiting placement. - Time Spent with Patient Total time spent is greater than 50% in coordination of care (as documented) at patient's floor/unit and/or counseling patient: Internal Medicine: Result - Labs CBC & Chem 7: 10/17/18 03:43 10/18/18 04:50 Labs: BMP 10/18/18 04:50 Sodium 135 L Potassium 3.7 Chloride 97 L Carbon Dioxide 30 H BUN 17 Creatinine 0.81 Glucose 127 H Calcium 8.9 - ABG Interpretation ABG results: ABG ABG pH 7.45 pH Units (7.32-7.45) 10/10/18 04:32 ABG pCO2 26 mmHg (35-45) L 10/10/18 04:32 ABG pO2 126 mmHg (85-104) H 10/10/18 04:32 ABG O2 Saturation 99 % (95-98) H 10/10/18 04:32 PT/INR, D-dimer PT 14.5 Seconds (9.4-12.1) H 10/10/18 10:09 Consult Discharge Plan - Plan Referrals: Bailee Mccain CNP [Advanced Practice Nurse] - 10/22/18 12:45 pm Luis Alberto Lucero CNP [Advanced Practice Nurse] - (Per the Office they will call the patient at home with a follow up appointment) Prescriptions: Rivaroxaban [Xarelto] 20 mg PO DAILY #30 tablet (5) STEMI (ST elevation myocardial infarction) Qualifiers: Involved coronary artery: LAD coronary artery Qualified Code(s): I21.02 - ST elevation (STEMI) myocardial infarction involving left anterior descending coronary artery
[2018-10-18] MEDS: *HR* Rivaroxaban 10 MG TABLET PO SCH (17:26)
[2018-10-18] MEDS: Furosemide 20 MG TABLET PO SCH (17:26)
[2018-10-19] MEDS: Ipratropium/Albuterol Neb 3 ML IH SCH ×4 (04:08→21:50)
[2018-10-19 05:55] LABS: Hematocrit 30.6 % (37.5-50.1); Hemoglobin 10.1 g/dL (12.9-16.9); Mean Corpuscular Hemoglobin 30.2 pg (28.0-33.3); Mean Corpuscular Volume 91.6 fL (83.0-100.0); Mean Platelet Volume 10.3 fL (9.4-12.4); Platelet Count 419 K/mcL (140-400); Red Blood Count 3.34 M/mcL (4.19-5.50); Red Cell Distribution Width 14.3 % (11.5-14.5); White Blood Count 20.3 K/mcL (4.3-11.1)
[2018-10-19 06:15] LABS: BUN/Creatinine Ratio 24 (6-26); Blood Urea Nitrogen 19 mg/dL (6-20); Calcium 9.1 mg/dL (8.6-10.3); Carbon Dioxide 29 mEq/L (23-29); Chloride 99 mEq/L (98-107); Glucose 121 mg/dL (70-105); Osmolality,Calculated 286 (280-300); Potassium 3.9 mEq/L (3.5-5.1); Sodium 136 mEq/L (136-145); eGFR For African Americans > 60 (> 60); eGFR For Non-African Americans > 60 (> 60)
[2018-10-19] MEDS: Aspirin 81 MG TAB.CHEW PO SCH (08:50)
[2018-10-19] MEDS: predniSONE 20 MG TABLET PO SCH (08:50)
[2018-10-19] MEDS: Furosemide 20 MG TABLET PO SCH ×2 (08:50→16:58)
[2018-10-19] MEDS: *HR* Amiodarone 200 MG TABLET PO SCH (08:50)
[2018-10-19] MEDS: Metoprolol XL (24 HR) Succ 25 MG TAB.ER.24H PO SCH (08:50)
[2018-10-19] MEDS: Insulin LISPRO 300 UNITS/3 ML VIAL SQ SCH ×3 (08:51→16:59)
[2018-10-19] MEDS: Nystatin SUSP 5 ML UD.LIQ PO SCH ×4 (08:51→20:05)
[2018-10-19] MEDS: Nicotine 21 MG PATCH.TD24 TD SCH (08:51)
[2018-10-19] MEDS: Budesonide/Formoterol 160/4.5 1 PUFF INH IH SCH ×2 (10:04→21:50)
--- NOTE | 2018-10-19 11:03 | Internal Med Progress Note ---
Hospitalist Progress Note - Encounter Date of Encounter: 10/19/18 Time of Encounter: 08:20 - Subjective Interval History: Patient seen at bedside. Complaining of tongue sores and sore throats. Denies fever, chills, rigors. Still has pain on the right side of the chest. Denies shortness of breath. Lying comfortably on the bed at this point. No other overnight events. - Exam Vitals: Temp Pulse Resp BP Pulse Ox 98.8 F 66 12 101/71 98 10/19/18 07:31 10/19/18 07:31 10/19/18 07:31 10/19/18 07:10/19/18 07:31 Exam: General: Alert and oriented, no physical distress, able to follow commands. Respiratory: Normal vesicular breathing, no added sounds, breathing equal in both sides. CVS: Normal heart sounds, no murmurs, no edema. Extremities: No peripheral edema, peripheral pulses intact. Lymph nodes: No lymphadenopathy Gastrointestinal: Soft, nontender abdomen, normal abdominal sounds. No distention noted. Genitourinary: No paravertebral tenderness. Neurological: Alert and oriented. No focal deficits. - Assessment and Plan (1) Cardiopulmonary arrest Current Visit: No Status: Inactive Assessment and Plan: Patient had V. fib arrest on 10/07. 5 rounds of CPR and resuscitated. Had anterior STEMI on EKG. -HDS now Awaiting placement. (2) Acute respiratory failure with hypoxia Current Visit: Yes Status: Acute Assessment and Plan: Resolved On room air, saturation hi 90s. Completed treatment for pneumonia. On steroids for COPD, being completed today Euvolemic on exam. Continue Lasix 20 mg BID PO (3) Acute systolic CHF (congestive heart failure), NYHA class 3 Current Visit: Yes Status: Acute Assessment and Plan: Acute systolic congestive heart failure secondary to [place]. Echo with ejection fraction of 15%. Currently on Lasix, continue at current dose Monitor input and output, daily weights. -Metoprolol added by cardiolgoy. -Not on DANIS-I, spironolactone 2/2 risk of hypotension -Currently on LifeVest. Will neeed to be discharged on life vest (4) Atrial fibrillation with RVR Current Visit: Yes Status: Inactive Assessment and Plan: Diagnosed with atrial fibrillation following the [place]. Was started on amiodarone drip, currently on 200 mg twice a day amiodarone Beta justine added, tolerating it well CHADVAc of 3, will need AC indefinitely. -On xarelto. (5) STEMI (ST elevation myocardial infarction) Current Visit: Yes Status: Inactive Assessment and Plan: STEMI leading to cardiac arrest. [facility] 10/07/18: s/p PTCA/CHANA to mLAD -Echo showed ejection fraction of 15% with severe global left ventricular systolic dysfunction, moderate to severe LVEDD, mild TR, mild [place]. -Currently on aspirin, Plavix, atorvastatin, beta justine. Will need to continue without interruption. (6) Tobacco abuse Current Visit: Yes Status: Acute Assessment and Plan: Counseled to stop smoking. Nicotine patch ordered. Counseled about the adverse effect of smoking. (7) Sore throat Current Visit: Yes Status: Acute Assessment and Plan: Complainnig of sore throat HAD trouble eating food NO swelling apppreciated Mild phayngeal erythema Cepacol lozenges ordered Unlikley to be beacterial in nature - Time Spent with Patient Total time spent is greater than 50% in coordination of care (as documented) at patient's floor/unit and/or counseling patient: Internal Medicine: Result - Labs CBC & Chem 7: 10/19/18 05:45 10/19/18 05:45 Labs: Short CBC 10/19/18 Range/Units 05:45 WBC 20.3 H (4.3-11.1) K/mcL Hgb 10.1 L (12.9-16.9) g/dL Hct 30.6 L (37.5-50.1) % Plt Count 419 H (140-400) K/mcL BMP 10/19/18 05:45 Sodium 136 Potassium 3.9 Chloride 99 Carbon Dioxide 29 BUN 19 Creatinine 0.79 Glucose 121 H Calcium 9.1 - ABG Interpretation ABG results: ABG ABG pH 7.45 pH Units (7.32-7.45) 10/10/18 04:32 ABG pCO2 26 mmHg (35-45) L 10/10/18 04:32 ABG pO2 126 mmHg (85-104) H 10/10/18 04:32 ABG O2 Saturation 99 % (95-98) H 10/10/18 04:32 PT/INR, D-dimer PT 14.5 Seconds (9.4-12.1) H 10/10/18 10:09 Consult Discharge Plan - Plan Referrals: Bailee Mccain CNP [Advanced Practice Nurse] - 10/22/18 12:45 pm Luis Alberto Lucero CNP [Advanced Practice Nurse] - (Per the Office they will call the patient at home with a follow up appointment) Prescriptions: Rivaroxaban [Xarelto] 20 mg PO DAILY #30 tablet ____ (5) STEMI (ST elevation myocardial infarction) Qualifiers: Involved coronary artery: LAD coronary artery Qualified Code(s): I21.02 - ST elevation (STEMI) myocardial infarction involving left anterior descending coronary artery
[2018-10-19] MEDS: *HR* Rivaroxaban 10 MG TABLET PO SCH (16:58)
[2018-10-19] MEDS: Menthol 9.1 MG LOZENGE PO PRN (22:02)
[2018-10-20] MEDS: Insulin LISPRO 300 UNITS/3 ML VIAL SQ SCH ×5 (00:05→20:25)
[2018-10-20] MEDS: Ipratropium/Albuterol Neb 3 ML IH SCH ×3 (04:07→16:12)
[2018-10-20 06:21] LABS: Hematocrit 29.1 % (37.5-50.1); Hemoglobin 9.6 g/dL (12.9-16.9); Mean Corpuscular Hemoglobin 30.8 pg (28.0-33.3); Mean Corpuscular Volume 93.3 fL (83.0-100.0); Platelet Count 461 K/mcL (140-400); Red Blood Count 3.12 M/mcL (4.19-5.50); Red Cell Distribution Width 14.6 % (11.5-14.5); White Blood Count 17.4 K/mcL (4.3-11.1)
[2018-10-20 06:37] LABS: BUN/Creatinine Ratio 22 (6-26); Blood Urea Nitrogen 17 mg/dL (6-20); Calcium 8.7 mg/dL (8.6-10.3); Carbon Dioxide 29 mEq/L (23-29); Chloride 100 mEq/L (98-107); Glucose 116 mg/dL (70-105); Osmolality,Calculated 287 (280-300); Potassium 3.5 mEq/L (3.5-5.1); Sodium 137 mEq/L (136-145); eGFR For African Americans > 60 (> 60); eGFR For Non-African Americans > 60 (> 60)
[2018-10-20] MEDS: Nystatin SUSP 5 ML UD.LIQ PO SCH ×4 (08:05→20:25)
[2018-10-20] MEDS: Metoprolol XL (24 HR) Succ 25 MG TAB.ER.24H PO SCH (08:05)
[2018-10-20] MEDS: Nicotine 21 MG PATCH.TD24 TD SCH (08:05)
[2018-10-20] MEDS: Furosemide 20 MG TABLET PO SCH ×2 (08:05→17:43)
[2018-10-20] MEDS: Aspirin 81 MG TAB.CHEW PO SCH (08:05)
[2018-10-20] MEDS: *HR* Amiodarone 200 MG TABLET PO SCH (08:05)
[2018-10-20] MEDS: Budesonide/Formoterol 160/4.5 1 PUFF INH IH SCH ×2 (10:52→20:29)
--- NOTE | 2018-10-20 13:19 | Internal Med Progress Note ---
Hospitalist Progress Note - Encounter Date of Encounter: 10/20/18 Time of Encounter: 13:17 - Subjective Interval History: Patient doing well this morning. Sore throat is improved. Denies chest pain. - Exam Vitals: Temp Pulse Resp BP Pulse Ox 99.1 F 72 16 113/80 95 10/20/18 06:35 10/20/18 06:35 10/20/18 10:52 10/20/18 06:35 10/20/18 10:52 Exam: General: Ill-appearing and in no acute distress HEENT: No erythema of posterior pharynx. No exudates. Lymphatics: No mandibular or cervical lymphadenopathy Cardiovascular: RRR. No murmurs. No chest wall tenderness. Lungs: Clear to auscelltation bilaterally. Regular chest rise. Abdomen: Non-tender. No rebound or gaurding. Nl bowel sounds. Extremities: No edema. 2+ pulses radial and pedal pulses Skin: No rahses, abrasions, or contusions. Nl cap refill. Psych: Nl attention. 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 5/5 strength. Sensation to light touch and pinprick intact. - Assessment and Plan (1) Cardiopulmonary arrest Current Visit: No Status: Inactive Assessment and Plan: Patient presented with vfib cardiac arrest 2/2 ishcemic heart disease s/p ROSC and treatment for STEMI. - Interventions per below - Currently waiting on Medicaid approval for placement (2) STEMI (ST elevation myocardial infarction) Current Visit: Yes Status: Inactive Assessment and Plan: Patient presented with vfib cardiac arrest 2/2 STEMI s/p PTCA/CHANA to mLAD. - Continue aspirin, Plavix, atorvastatin, and beta justine - Follow up with cardiology after hospital stay (3) Acute systolic CHF (congestive heart failure), NYHA class 3 Current Visit: Yes Status: Acute Assessment and Plan: Secondary to ischemic heart disease. EF of 15%. -Has been started on appropriate therapy -Unable to tolerate DANIS or spironolactone given hypotension -Currently appears to be euvolemic PLAN: - Continue metoprolol and Lasix - Will be discharged with LifeVest (4) Atrial fibrillation with RVR Current Visit: Yes Status: Inactive Assessment and Plan: On metoprolol, amiodarone, and Xarelto. DVT Prophylaxis: Xarelto Internal Medicine: Result - Labs CBC & Chem 7: 10/20/18 05:50 10/20/18 05:50 Labs: Short CBC 10/20/18 Range/Units 05:50 WBC 17.4 H (4.3-11.1) K/mcL Hgb 9.6 L (12.9-16.9) g/dL Hct 29.1 L (37.5-50.1) % Plt Count 461 H (140-400) K/mcL BMP 10/20/18 05:50 Sodium 137 Potassium 3.5 Chloride 100 Carbon Dioxide 29 BUN 17 Creatinine 0.78 Glucose 116 H Calcium 8.7 - ABG Interpretation ABG results: ABG ABG pH 7.45 pH Units (7.32-7.45) 10/10/18 04:32 ABG pCO2 26 mmHg (35-45) L 10/10/18 04:32 ABG pO2 126 mmHg (85-104) H 10/10/18 04:32 ABG O2 Saturation 99 % (95-98) H 10/10/18 04:32 PT/INR, D-dimer PT 14.5 Seconds (9.4-12.1) H 10/10/18 10:09 Consult Discharge Plan - Plan Referrals: Bailee Mccain CNP [Advanced Practice Nurse] - 10/22/18 12:45 pm Luis Alberto Lucero CNP [Advanced Practice Nurse] - (Per the Office they will call the patient at home with a follow up appointment) Prescriptions: Rivaroxaban [Xarelto] 20 mg PO DAILY #30 tablet ___ (2) STEMI (ST elevation myocardial infarction) Qualifiers: Involved coronary artery: LAD coronary artery Qualified Code(s): I21.02 - ST elevation (STEMI) myocardial infarction involving left anterior descending coronary artery
[2018-10-20] MEDS ORDERED: Ipratropium/Albuterol Neb 3 ML IH PRN (16:11)
[2018-10-20] MEDS: *HR* Rivaroxaban 10 MG TABLET PO SCH (17:43)
[2018-10-21 04:36] LABS: Hematocrit 32.3 % (37.5-50.1); Hemoglobin 10.4 g/dL (12.9-16.9); Mean Corpuscular HGB Conc 32.2 g/dL (31.6-35.5); Mean Corpuscular Hemoglobin 29.9 pg (28.0-33.3); Mean Corpuscular Volume 92.8 fL (83.0-100.0); Platelet Count 543 K/mcL (140-400); Red Blood Count 3.48 M/mcL (4.19-5.50); Red Cell Distribution Width 14.7 % (11.5-14.5); White Blood Count 13.4 K/mcL (4.3-11.1)
[2018-10-21 05:00] LABS: BUN/Creatinine Ratio 20 (6-26); Blood Urea Nitrogen 15 mg/dL (6-20); Calcium 8.7 mg/dL (8.6-10.3); Carbon Dioxide 25 mEq/L (23-29); Chloride 102 mEq/L (98-107); Glucose 106 mg/dL (70-105); Magnesium 1.7 mg/dL (1.6-2.6); Osmolality,Calculated 281 (280-300); Potassium 3.7 mEq/L (3.5-5.1); Sodium 135 mEq/L (136-145); eGFR For African Americans > 60 (> 60); eGFR For Non-African Americans > 60 (> 60)
[2018-10-21] MEDS: Budesonide/Formoterol 160/4.5 1 PUFF INH IH SCH ×2 (08:05→20:49)
[2018-10-21] MEDS: Aspirin 81 MG TAB.CHEW PO SCH (08:39)
[2018-10-21] MEDS: Furosemide 20 MG TABLET PO SCH ×2 (08:39→16:44)
[2018-10-21] MEDS: Insulin LISPRO 300 UNITS/3 ML VIAL SQ SCH ×2 (08:40→11:36)
[2018-10-21] MEDS: Nicotine 21 MG PATCH.TD24 TD SCH (08:40)
[2018-10-21] MEDS: *HR* Amiodarone 200 MG TABLET PO SCH (08:40)
[2018-10-21] MEDS: Metoprolol XL (24 HR) Succ 25 MG TAB.ER.24H PO SCH (08:40)
[2018-10-21] MEDS: Nystatin SUSP 5 ML UD.LIQ PO SCH ×4 (08:40→21:00)
--- NOTE | 2018-10-21 11:43 | Internal Med Progress Note ---
Hospitalist Progress Note - Encounter Date of Encounter: 10/21/18 Time of Encounter: 11:41 - Subjective Interval History: Patient seen at bedside this morning. No changes from yesterday. Still requesting a walker. - Exam Vitals: Temp Pulse Resp BP Pulse Ox 98.9 F 74 18 105/76 98 10/21/18 07:32 10/21/18 07:32 10/21/18 08:06 10/21/18 07:32 10/21/18 08:06 Exam: General: Ill-appearing and in no acute distress HEENT: No erythema of posterior pharynx. No exudates. Lymphatics: No mandibular or cervical lymphadenopathy Cardiovascular: RRR. No murmurs. No chest wall tenderness. Lungs: Clear to auscelltation bilaterally. Regular chest rise. Abdomen: Non-tender. No rebound or gaurding. Nl bowel sounds. Extremities: No edema. 2+ pulses radial and pedal pulses Skin: No rahses, abrasions, or contusions. Nl cap refill. Psych: Nl attention. 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 5/5 strength. Sensation to light touch and pinprick intact. - Assessment and Plan (1) Cardiopulmonary arrest Current Visit: No Status: Inactive Assessment and Plan: Patient presented with vfib cardiac arrest 2/2 ishcemic heart disease s/p ROSC and treatment for STEMI. - Interventions per below - Currently waiting on Medicaid approval for placement (2) STEMI (ST elevation myocardial infarction) Current Visit: Yes Status: Inactive Assessment and Plan: Patient presented with vfib cardiac arrest 2/2 STEMI s/p PTCA/CHANA to mLAD. - Continue aspirin, Plavix, atorvastatin, and beta justine - Follow up with cardiology after hospital stay (3) Acute systolic CHF (congestive heart failure), NYHA class 3 Current Visit: Yes Status: Acute Assessment and Plan: Secondary to ischemic heart disease. EF of 15%. -Has been started on appropriate therapy -Unable to tolerate DANIS or spironolactone given hypotension -Currently appears to be euvolemic -BP still too low to tolerate DANIS PLAN: - Continue metoprolol and Lasix - Will be discharged with LifeVest (4) Atrial fibrillation with RVR Current Visit: Yes Status: Inactive Assessment and Plan: On metoprolol, amiodarone, and Xarelto. DVT Prophylaxis: Xarelto Internal Medicine: Result - Labs CBC & Chem 7: 10/21/18 04:00 10/21/18 04:00 Labs: Short CBC 10/21/18 Range/Units 04:00 WBC 13.4 H (4.3-11.1) K/mcL Hgb 10.4 L (12.9-16.9) g/dL Hct 32.3 L (37.5-50.1) % Plt Count 543 H (140-400) K/mcL BMP 10/21/18 04:00 Sodium 135 L Potassium 3.7 Chloride 102 Carbon Dioxide 25 BUN 15 Creatinine 0.74 Glucose 106 H Calcium 8.7 - ABG Interpretation ABG results: ABG ABG pH 7.45 pH Units (7.32-7.45) 10/10/18 04:32 ABG pCO2 26 mmHg (35-45) L 10/10/18 04:32 ABG pO2 126 mmHg (85-104) H 10/10/18 04:32 ABG O2 Saturation 99 % (95-98) H 10/10/18 04:32 PT/INR, D-dimer PT 14.5 Seconds (9.4-12.1) H 10/10/18 10:09 Consult Discharge Plan - Plan Referrals: Bailee Mccain CNP [Advanced Practice Nurse] - 10/22/18 12:45 pm Luis Alberto Lucero CNP [Advanced Practice Nurse] - (Per the Office they will call the patient at home with a follow up appointment) Prescriptions: Rivaroxaban [Xarelto] 20 mg PO DAILY #30 tablet (2) STEMI (ST elevation myocardial infarction) Qualifiers: Involved coronary artery: LAD coronary artery Qualified Code(s): I21.02 - ST elevation (STEMI) myocardial infarction involving left anterior descending coronary artery
[2018-10-21 16:08] LABS: Estimated Average Glucose 117 mg/dl
[2018-10-21] MEDS: *HR* Rivaroxaban 10 MG TABLET PO SCH (16:44)
[2018-10-21] MEDS: Ipratropium/Albuterol Neb 3 ML IH SCH (22:17)
[2018-10-22] MEDS: Ipratropium/Albuterol Neb 3 ML IH SCH ×7 (00:20→23:47)
[2018-10-22] MEDS: Chloraseptic Spray 177 ML BOTTLE MM PRN ×2 (01:47→23:08)
[2018-10-22] MEDS: Menthol 9.1 MG LOZENGE PO PRN ×2 (03:17→23:09)
[2018-10-22 04:40] LABS: Hematocrit 33.2 % (37.5-50.1); Hemoglobin 10.9 g/dL (12.9-16.9); Mean Corpuscular HGB Conc 32.8 g/dL (31.6-35.5); Mean Corpuscular Hemoglobin 30.4 pg (28.0-33.3); Mean Corpuscular Volume 92.7 fL (83.0-100.0); Mean Platelet Volume 9.8 fL (9.4-12.4); Platelet Count 558 K/mcL (140-400); Red Blood Count 3.58 M/mcL (4.19-5.50); Red Cell Distribution Width 14.6 % (11.5-14.5); White Blood Count 14.7 K/mcL (4.3-11.1)
[2018-10-22 04:58] LABS: BUN/Creatinine Ratio 17 (6-26); Blood Urea Nitrogen 15 mg/dL (6-20); Calcium 8.9 mg/dL (8.6-10.3); Carbon Dioxide 29 mEq/L (23-29); Chloride 99 mEq/L (98-107); Glucose 116 mg/dL (70-105); Osmolality,Calculated 284 (280-300); Sodium 136 mEq/L (136-145); eGFR For African Americans > 60 (> 60); eGFR For Non-African Americans > 60 (> 60)
[2018-10-22] MEDS: Budesonide/Formoterol 160/4.5 1 PUFF INH IH SCH ×2 (07:41→19:58)
[2018-10-22] MEDS: *HR* Amiodarone 200 MG TABLET PO SCH (08:27)
[2018-10-22] MEDS: Metoprolol XL (24 HR) Succ 25 MG TAB.ER.24H PO SCH (08:27)
[2018-10-22] MEDS: Furosemide 20 MG TABLET PO SCH ×2 (08:27→16:48)
[2018-10-22] MEDS: Aspirin 81 MG TAB.CHEW PO SCH (08:27)
[2018-10-22] MEDS: Nystatin SUSP 5 ML UD.LIQ PO SCH ×4 (08:28→20:59)
[2018-10-22] MEDS: Nicotine 21 MG PATCH.TD24 TD SCH (08:28)
--- NOTE | 2018-10-22 11:26 | Discharge Summary ---
Date of Encounter: 10/22/18 Time of Encounter: 11:21 - Discharge Diagnosis (1) Cardiopulmonary arrest Priority: Primary Status: Inactive (2) STEMI (ST elevation myocardial infarction) Priority: Secondary Status: Inactive Qualifiers: Involved coronary artery: LAD coronary artery Qualified Code(s): I21.02 - ST elevation (STEMI) myocardial infarction involving left anterior descending coronary artery (3) Acute systolic CHF (congestive heart failure), NYHA class 3 Priority: Secondary Status: Acute (4) Atrial fibrillation with RVR Priority: Secondary Status: Inactive Hospital course: Mr. Acevedo is a 53 year old male with history of homelessness presented with V. fib cardiac arrest and found to have a STEMI status post PTCA/CHANA to mLAD. Patient developed acute systolic heart failure as a result of this with EF of 15% and was diuresed to euvolemia. Was started on aspirin, Plavix, atorvastatin, and beta justine. Blood pressure would not support DANIS/ARB or spironolactone. Was discharged with a LifeVest. Was originally discharged to a rehabilitation facility but progressed with physical therapy so discharged to live with friends. Follow-up was scheduled at [facility] but the patient may be transferring his care to [place] where his family lives. - Time Spent with Patient Total time spent providing and/or coordinating discharge services: 75 minutes Time spent: Greater than 30 minutes - Discharge Medications Prescriptions: New Rivaroxaban [Xarelto] 20 mg PO DAILY #30 tablet Ipratropium/Albuterol Neb [Duoneb] 3 ml IH [id number] inhsol Nicotine Patch [Nicoderm] 21 mg TD DAILY patch.td24 Clopidogrel [Plavix] 75 mg PO DAILY tablet Amiodarone [Cordarone] 200 mg PO DAILY tablet Atorvastatin [Lipitor] 80 mg PO HS tablet Metoprolol XL (24 HR) Succ [Toprol Xl] 25 mg PO DAILY tab.er.24h Aspirin 81 mg PO DAILY tab.chew Furosemide [Lasix] 20 mg PO BIDDIURETIC tablet Omeprazole [PriLOSEC] 40 mg PO DAILY@0730 capsule. Budesonide/Formoterol 160/4.5 [Symbicort 160/4.5] 2 puff IH BIDR inh Home Medications: Rivaroxaban [Xarelto] 20 mg PO DAILY #30 tablet 10/11/18 [Rx] Amiodarone [Cordarone] 200 mg PO DAILY tablet 10/18/18 [Rx] Aspirin 81 mg PO DAILY tab.chew 10/18/18 [Rx] Atorvastatin [Lipitor] 80 mg PO HS tablet 10/18/18 [Rx] Budesonide/Formoterol 160/4.5 [Symbicort 160/4.5] 2 puff IH BIDR inh 10/18/18 [Rx] Clopidogrel [Plavix] 75 mg PO DAILY tablet 10/18/18 [Rx] Furosemide [Lasix] 20 mg PO BIDDIURETIC tablet 10/18/18 [Rx] Ipratropium/Albuterol Neb [Duoneb] 3 ml IH [id number] inhsol 10/18/18 [Rx] Metoprolol XL (24 HR) Succ [Toprol Xl] 25 mg PO DAILY tab.er.24h 10/18/18 [Rx] Nicotine Patch [Nicoderm] 21 mg TD DAILY patch.td24 10/18/18 [Rx] Omeprazole [PriLOSEC] 40 mg PO DAILY@0730 capsule. 10/18/18 [Rx] Allergies/Adverse Reactions: Allergy/AdvReac Type Severity Reaction Status Date / Time No Known Allergies Allergy Verified 12/23/17 08:30 Date of admission: 10/07/18 10:30 Primary care physician: PCP NONE Consults: 10/07/18 11:27 Consult to Cardiac Rehabilitation-Phase1 [CONS] Routine Comment: Reason for Consult: AMI Call Completed: Yes Consult to Nurse Navigator [CONS] Routine Comment: 10/10/18 10:20 Consult to Racecar Driver [CONS] Routine Reason for SW Consult: Family would like to speak with regarding transfe rring patient back to [place] 10/13/18 12:06 Consult to Physical Therapy [CONS] Routine Comment: Evaluate, develop and implement POC Reason for Consult: STEMI Weakness Does patient have active BEDREST order?: No Is patient medically & hemodynamically stable?: Yes 10/13/18 12:07 Consult to Occupational Therapy [CONS] Routine Comment: Evaluate, develop and implement POC Reason for Consult: STEMI Weakness Does patient have active BEDREST order?: No Is patient medically & hemodynamically stable?: Yes 10/14/18 10:03 Consult to Invasive Line Access Team [CONS] Routine Reason for Consult: limited access Line Type: EPIV 10/14/18 14:06 Consult to Pulmonology [CONS] Routine Consulting Provider: [facility] Reason for Consult: Continued high oxygen requirements. CXR with pulmonary edema vs ARDS. Call Completed: Yes - Constitutional Vitals: Temp Pulse Resp BP Pulse Ox 98.6 F 80 18 107/78 100 10/22/18 06:59 10/22/18 06:59 10/22/18 07:43 10/22/18 06:59 10/22/18 07:43 Exam: General: Ill-appearing and in no acute distress HEENT: No erythema of posterior pharynx. No exudates. Lymphatics: No mandibular or cervical lymphadenopathy Cardiovascular: RRR. No murmurs. No chest wall tenderness. Lungs: Clear to auscelltation bilaterally. Regular chest rise. Abdomen: Non-tender. No rebound or gaurding. Nl bowel sounds. Extremities: No edema. 2+ pulses radial and pedal pulses Skin: No rahses, abrasions, or contusions. Nl cap refill. Psych: Nl attention. 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 5/5 strength. Sensation to light touch and pinprick intact. - Patient Status Disposition: Home, Self-Care Condition: Fair Functional capacity at discharge: independent ambulation Overall status at discharge: patient is progressing back to baseline - Discharge Instructions Follow Up With: Bailee Mccain CNP [Advanced Practice Nurse] - 10/22/18 12:45 pm Luis Alberto Lucero CNP [Advanced Practice Nurse] - (Per the Office they will call the patient at home with a follow up appointment) - Diet and Activity Activity: increase activity as tolerated Diet: low salt diet
[2018-10-22] MEDS: *HR* Rivaroxaban 10 MG TABLET PO SCH (16:48)
[2018-10-23] MEDS: Ipratropium/Albuterol Neb 3 ML IH SCH ×4 (03:57→16:38)
[2018-10-23 04:56] LABS: Hematocrit 28.4 % (37.5-50.1); Hemoglobin 9.4 g/dL (12.9-16.9); Mean Corpuscular HGB Conc 33.1 g/dL (31.6-35.5); Mean Corpuscular Hemoglobin 30.1 pg (28.0-33.3); Mean Platelet Volume 9.9 fL (9.4-12.4); Platelet Count 509 K/mcL (140-400); Red Blood Count 3.12 M/mcL (4.19-5.50); Red Cell Distribution Width 14.6 % (11.5-14.5); White Blood Count 13.5 K/mcL (4.3-11.1)
[2018-10-23 05:24] LABS: BUN/Creatinine Ratio 14 (6-26); Blood Urea Nitrogen 10 mg/dL (6-20); Calcium 8.6 mg/dL (8.6-10.3); Carbon Dioxide 23 mEq/L (23-29); Chloride 102 mEq/L (98-107); Glucose 124 mg/dL (70-105); Osmolality,Calculated 278 (280-300); Potassium 3.8 mEq/L (3.5-5.1); Sodium 134 mEq/L (136-145); eGFR For African Americans > 60 (> 60); eGFR For Non-African Americans > 60 (> 60)
[2018-10-23] MEDS: Budesonide/Formoterol 160/4.5 1 PUFF INH IH SCH (07:37)
[2018-10-23] MEDS: Nicotine 21 MG PATCH.TD24 TD SCH (09:07)
[2018-10-23] MEDS: Nystatin SUSP 5 ML UD.LIQ PO SCH ×3 (09:09→16:59)
[2018-10-23] MEDS: Furosemide 20 MG TABLET PO SCH ×2 (09:10→16:59)
[2018-10-23] MEDS: Metoprolol XL (24 HR) Succ 25 MG TAB.ER.24H PO SCH (09:10)
[2018-10-23] MEDS: *HR* Amiodarone 200 MG TABLET PO SCH (09:10)
[2018-10-23] MEDS: Aspirin 81 MG TAB.CHEW PO SCH (09:10)
--- NOTE | 2018-10-23 13:04 | Internal Med Progress Note ---
Hospitalist Progress Note - Encounter Date of Encounter: 10/23/18 Time of Encounter: 10:25 - Subjective Interval History: No major events overnight. Patient was seen this a.m. He denied fever, chills or night sweats. He has no nausea, vomiting or abdominal pain. Patient denied chest pain, shortness of breath or palpitation. Patient was supposed to be discharged yesterday however he is waiting on the ride and he would be discharg ed today - Exam Vitals: Temp Pulse Resp BP Pulse Ox 98.5 F 74 18 102/70 98 10/23/18 06:00 10/23/18 04:29 10/23/18 11:43 10/23/18 06:00 10/23/18 11:43 Exam: General: Ill-appearing and in no acute distress HEENT: No erythema of posterior pharynx. No exudates. Lymphatics: No mandibular or cervical lymphadenopathy Cardiovascular: RRR. No murmurs. No chest wall tenderness. Lungs: Clear to auscelltation bilaterally. Regular chest rise. Abdomen: Non-tender. No rebound or gaurding. Nl bowel sounds. Extremities: No edema. 2+ pulses radial and pedal pulses Skin: No rahses, abrasions, or contusions. Nl cap refill. Psych: Nl attention. 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 5/5 strength. Sensation to light touch and pinprick intact. - Assessment and Plan (1) STEMI (ST elevation myocardial infarction) Current Visit: Yes Status: Resolved Assessment and Plan: Patient presented with vfib cardiac arrest 2/2 STEMI s/p PTCA/CHANA to mLAD. - Continue aspirin, Plavix, atorvastatin, and beta justine - Follow up with cardiology after hospital stay (2) Cardiopulmonary arrest Current Visit: Yes Status: Resolved Assessment and Plan: Patient presented with vfib cardiac arrest 2/2 ishcemic heart disease s/p ROSC and treatment for STEMI. - Interventions per ABOVE (3) Atrial fibrillation with RVR Current Visit: Yes Status: Resolved Assessment and Plan: On metoprolol, amiodarone, and Xarelto. F/U WITH cardiology as outpatient (4) Acute systolic CHF (congestive heart failure), NYHA class 3 Current Visit: Yes Status: Acute Assessment and Plan: Secondary to ischemic heart disease. EF of 15%. Currently appears to be euvolemic. BP still low to tolerate DANIS PLAN: - Continue metoprolol and Lasix - has a LifeVest. Needs to follow up with cardiology as outpatient for AICD eval - Time Spent with Patient Total time spent is greater than 50% in coordination of care (as documented) at patient's floor/unit and/or counseling patient: Plan of Care Discussed with: patient Internal Medicine: Result - Labs CBC & Chem 7: 10/23/18 04:25 10/23/18 04:25 Labs: Short CBC 10/23/18 Range/Units 04:25 WBC 13.5 H (4.3-11.1) K/mcL Hgb 9.4 L D (12.9-16.9) g/dL Hct 28.4 L (37.5-50.1) % Plt Count 509 H (140-400) K/mcL BMP 10/23/18 04:25 Sodium 134 L Potassium 3.8 Chloride 102 Carbon Dioxide 23 BUN 10 Creatinine 0.70 Glucose 124 H Calcium 8.6 - ABG Interpretation ABG results: ABG ABG pH 7.45 pH Units (7.32-7.45) 10/10/18 04:32 ABG pCO2 26 mmHg (35-45) L 10/10/18 04:32 ABG pO2 126 mmHg (85-104) H 10/10/18 04:32 ABG O2 Saturation 99 % (95-98) H 10/10/18 04:32 PT/INR, D-dimer PT 14.5 Seconds (9.4-12.1) H 10/10/18 10:09 Consult Discharge Plan - Plan Instructions: Metoprolol (By mouth), Furosemide (By mouth), Aspirin (By mouth), Omeprazole (By mouth), Amiodarone (By mouth), Nicotine (Absorbed through the skin), Atorvastatin (By mouth), Ipratropium/Albuterol (By breathing), Clopidogrel (By mouth), Budesonide/Formoterol (By breathing), Rivaroxaban (By mouth), Heart Failure (DC), Acute Respiratory Distress Syndrome (DC), Chronic Obstructive Pulmonary Disease (DC), Anxiety (DC), Cigarette Smoking and Your Health, Ceramic Tile Setter (GEN) Referrals: Bailee Mccain CNP [Advanced Practice Nurse] - 10/29/18 1:10 pm Luis Alberto Lucero CNP [Advanced Practice Nurse] - 10/31/18 2:25 pm (this appointment will be in [place] office) Prescriptions: Aspirin 81 mg PO DAILY #30 tab.chew Amiodarone [Cordarone] 200 mg PO DAILY #30 tablet Ipratropium/Albuterol Neb [Duoneb] 3 ml IH Q4HR #1 vial.neb Furosemide [Lasix] 20 mg PO BID #60 tablet Atorvastatin Calcium [Lipitor] 80 mg PO HS #30 tab Nicotine Patch [Nicoderm] 14 mg TD DAILY #30 patch.td24 Omeprazole 20 mg PO Q24H #30 tab.rap.dr Clopidogrel Bisulfate [Plavix] 75 mg PO Q24H #30 tablet Budesonide/Formoterol 160/4.5 [Symbicort 160/4.5] 1 puff IH BIDR #1 hfa.aer.ad Metoprolol XL (24 HR) Succ [Toprol Xl] 25 mg PO DAILY #30 tab.er.24h Rivaroxaban [Xarelto] 20 mg PO DAILY #30 tablet Rivaroxaban [Xarelto] 20 mg PO Q24H #30 tablet (1) STEMI (ST elevation myocardial infarction) Qualifiers: Involved coronary artery: LAD coronary artery Qualified Code(s): I21.02 - ST elevation (STEMI) myocardial infarction involving left anterior descending coronary artery
[2018-10-23 15:33] VITALS: BP 103/79
[2018-10-23] MEDS: *HR* Rivaroxaban 10 MG TABLET PO SCH (16:59)
== END 2018-10-23 18:33 | disposition home or self-care (01) | DRG 174 ==
LOC: SUATTDRO 10:30 → ICNU 10:30 → 2NNU 10-11 14:28 → 2NENU 10-16 00:34
PROVIDERS: ADMIT Internal Medicine Cardiovascular Disease; ATTEND Internal Medicine